=== PATIENT | male | born 1985 | race African-American/Black ===

== ENCOUNTER 2017-05-13 15:18 | Emergency (ER) | payer MEDICARE ==
[~2017-05-13] VITALS: Ht 185.4 cm; Wt 90.0 kg
[~2017-05-13 15:18] MED LIST: LACTATED RINGER'S 1000 ML INJ 1,000 ML IV ONE; MIDAZOLAM HCL 2 MG/2 ML VIAL IV ONE; ONDANSETRON HCL 4 MG/2 ML VIAL IV PUSH ONE; PHENYLEPH/NS 1000 MCG/10 ML SYR IV ONE; PROPOFOL 200 MG/20 ML AMP IV ONE
[2017-05-13 15:29] VITALS: BP 120/73; PULSE 90; RESP 18; TEMP 98.3; O2SAT 97
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
[2017-05-13 16:34] LABS: AUTOMATED NEUTROPHIL # 6.9 TH/MM3 (1.8-7.7); BASOPHIL # 0.1 TH/MM3 (0-0.2); BASOPHIL % 1.3 % (0.0-2.0); EOSINOPHIL # 0.2 TH/MM3 (0-0.4); EOSINOPHIL % 1.7 % (0.0-4.0); HEMATOCRIT 45.5 % (39.0-51.0); HEMO FLAGS DIFF FINAL; LYMPHOCYTE # 2.1 TH/MM3 (1.0-4.8); MEAN CELL VOLUME 90.3 FL (80.0-100.0); MEAN CORPUSCULAR HEMOGLOBIN 30.2 PG (27.0-34.0); MEAN CORPUSCULAR HGB CONC 33.5 % (32.0-36.0); MONO % 7.7 % (0.0-8.0); NEUT % 68.3 % (16.0-70.0); PLATELET COUNT 300 TH/MM3 (150-450); RED BLOOD COUNT 5.03 MIL/MM3 (4.50-5.90); WHITE BLOOD COUNT 10.1 TH/MM3 (4.0-11.0)
[2017-05-13 16:46] LABS: APTT (PATIENT) 28.9 SEC (24.3-30.1); PROTHROMBIN TIME - PATIENT 10.6 SEC (9.8-11.6)
[2017-05-13 17:03] LABS: BICARBONATE 25.2 MEQ/L (21.0-32.0); POTASSIUM 3.6 MEQ/L (3.5-5.1)
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
[2017-05-13] MEDS ORDERED: LIDOCAINE HCL 2% 50 ML VIAL ONE (18:06)
[2017-05-13] MEDS ORDERED: BACITRACIN TOP OINT 15 GM TUBE ONE (18:07)
[2017-05-13] MEDS ORDERED: ceFAZolin INJ 1,000 MG VIAL ONE (18:30)
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
--- NOTE | 2017-05-13 21:12 | PD.OP ---
Operative Report Preoperative Diagnosis: (1) Laceration of right hand with tendon involvement including fingers Postoperative Diagnosis: (1) laceration flexor digitorum produndus zone II right middle fingerr (2) laceration flexor digitorum superficialis zone II right middle finger (3) laceration ulnar digital nerve right middle finger (4) laceration right hand/middle finger Procedure: exploration repair of flexor digitorum profundus zone II right middle finger repair flexor digitorum superificialis right middle finger repair with nerve conduit ulnar digital nerve right middle finger repair laceration right palm/middle finger Anesthesia: general Surgeon: Contreras Boyce [employer] Porter(s): inez Operation and Findings: partial laceration about 90% flexor profundus tendon zone II right middle finger complete laceration radial slip flexor digitorum superficialis zone II right middle finger partial laceration 90% ulnar slip flexor digitorum superficialis zone II right middle finger complete laceration ulnar digital nerve right middle finger Contreras Boyce MD May 13, 2017 21:12
[2017-05-13 21:15] VITALS: BP 110/70
[2017-05-13] MEDS ORDERED: HYDR-3533 PO (21:20)
[2017-05-13] MEDS ORDERED: CEPH500C PO (21:21)
[2017-05-13 21:30] VITALS: PULSE 100; RESP 28; TEMP 98.1; O2SAT 96
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
== END 2017-05-13 21:35 | disposition home or self-care (01) ==
LOC: HOR 15:18
DX: S66.122A Laceration of flexor muscle, fascia and tendon of right middle finger at wrist and hand level, initial encounter (principal); S64.01XA Injury of ulnar nerve at wrist and hand level of right arm, initial encounter; S61.411A Laceration without foreign body of right hand, initial encounter; Z72.0 Tobacco use; X99.1XXA Assault by knife, initial encounter; Y92.009 Unspecified place in unspecified non-institutional (private) residence as the place of occurrence of the external cause
CPT/HCPCS: 12041; 26356; 64910; 73130; 80048; 85025; 85610; 85730; 99285; C9352; J0690; J2250; J2370; J2405; J3010; J7120

== ENCOUNTER 2017-07-06 09:46 | Emergency (ER) | payer MEDICARE ==
[~2017-07-06] VITALS: Ht 172.7 cm; Wt 97.5 kg
[~2017-07-06 09:46] MED LIST changes: +CEPH500C PO; +HYDR-3533 PO; -LACTATED RINGER'S 1000 ML INJ 1,000 ML IV ONE; -MIDAZOLAM HCL 2 MG/2 ML VIAL IV ONE; -ONDANSETRON HCL 4 MG/2 ML VIAL IV PUSH ONE; -PHENYLEPH/NS 1000 MCG/10 ML SYR IV ONE; -PROPOFOL 200 MG/20 ML AMP IV ONE
[2017-07-06 09:58] VITALS: BP 139/70; PULSE 108; RESP 20; TEMP 103.1; O2SAT 97
[2017-07-06] MEDS ORDERED: SODIUM CHLOR 0.9% 1000 ML INJ 700 ML IV ONE (10:00)
[2017-07-06] MEDS ORDERED: ACETAMINOPHEN 325 MG TAB PO ONE (10:00)
[2017-07-06] MEDS ORDERED: SODIUM CHLOR 0.9% 1000 ML INJ 1,000 ML IV ONE ×2 (10:00)
--- NOTE | 2017-07-06 10:14 | PD ---
HPI Chief Complaint: Flank/Kidney Pain Time Seen by Provider: 09:53 Travel History International Travel<30 days: No Contact w/Intl Traveler<30days: No Traveled to known affect area: No History of Present Illness HPI The patient is a 31-year-old [place] male who presents to the emergency department for left flank pain. The patient has a 3 to four-day history of left mid back pain is located in the left flank, nonradiating, associated with nausea, vomiting, decreased appetite. He denies any associated diarrhea, does note decrease in bowel movements since he has decreased oral intake. He is also had fevers, high as 103 per EMS. The patient does complain of mild shortness of breath and a productive cough producing brown sputum. He denies any dysuria, frequency, or urgency. He does complain of dark-colored urine. Symptoms are moderate, there are no current alleviating or exacerbating factors. He denies any history of IVDA. PFSH Social History Alcohol Use: Yes Tobacco Use: Yes Substance Use: Yes Allergies-Medications (Allergen,Severity, Reaction): Coded Allergies: No Known Allergies (Unverified , 05/13/17) Reported Meds & Prescriptions Reported Meds & Active Scripts Active Reported Cephalexin 500 Mg Cap 500 Mg PO Q12H 5 Days Lortab (Hydrocodone-Acetaminophen) 5-325 Mg Tab 1 Tab PO Q6H PRN Review of Systems Except as stated in HPI: all other systems reviewed are Neg General / Constitutional: No: Fever HENT: No: Lightheadedness Cardiovascular: No: Chest Pain or Discomfort Respiratory: Positive: Cough, Shortness of Breath Gastrointestinal: Positive: Nausea, Vomiting Genitourinary: No: Urgency, Frequency, Dysuria Musculoskeletal: No: Myalgias Neurologic: No: Weakness Physical Exam Narrative GENERAL: Awake, alert, 31-year-old [place] male who appears his stated age and is in no acute respiratory distress. SKIN: Focused skin assessment warm/dry. HEAD: Atraumatic. Normocephalic. EYES: Pupils equal and round. No scleral icterus. No injection or drainage. ENT: No nasal bleeding or discharge. Mucous membranes pink and moist. NECK: Trachea midline. No JVD. CARDIOVASCULAR: Regular rate and rhythm. No murmur appreciated. RESPIRATORY: No accessory muscle use. Rhonchi noted in the left base. GASTROINTESTINAL: Abdomen soft, no guarding or rigidity. Back: No CVA tenderness. MUSCULOSKELETAL: No obvious deformities. No clubbing. No cyanosis. No edema. NEUROLOGICAL: Awake and alert. No obvious cranial nerve deficits. Motor grossly within normal limits. Normal speech. PSYCHIATRIC: Appropriate mood and affect; insight and judgment normal. Data Data Last Documented VS Vital Signs Date Time Temp Pulse Resp B/P (MAP) Pulse Ox O2 Delivery O2 Flow Rate FiO2 07/06/17 10:10 96 Nasal Cannula 2.00 07/06/17 09:58 103.1 108 20 139/70 (93) Orders Orders Electrocardiogram (07/06/17 10:00) Complete Blood Count With Diff (07/06/17 10:00) Comprehensive Metabolic Panel (07/06/17 10:00) Lactic Acid Sepsis Protocol (07/06/17 10:00) Ckmb (Isoenzyme) Profile (07/06/17 10:00) Troponin I (07/06/17 10:00) Urinalysis - C+S If Indicated (07/06/17 10:00) Influenzae A/B Antigen (07/06/17 10:00) Blood Culture (07/06/17 10:00) Chest, Single Ap (07/06/17 10:00) Blood Glucose (07/06/17 10:00) Ecg Monitoring (07/06/17 10:00) Iv Access Insert/Monitor (07/06/17 10:00) Oximetry (07/06/17 10:00) Oxygen Administration (07/06/17 10:00) Acetaminophen (Tylenol) (07/06/17 10:00) Sodium Chlor 0.9% 1000 Ml Inj (Ns 1000 M (07/06/17 10:00) Sodium Chlor 0.9% 1000 Ml Inj (Ns 1000 M (07/06/17 10:00) Sodium Chlor 0.9% 1000 Ml Inj (Ns 1000 M (07/06/17 10:00) Ceftriaxone Inj (Rocephin Inj) (07/06/17 11:00) Azithromycin Inj (Zithromax Inj) (07/06/17 11:00) CKMB (07/06/17 10:20) CKMB% (07/06/17 10:20) Labs Laboratory Tests Test 07/06/17 10:20 07/06/17 11:23 White Blood Count 25.8 TH/MM3 Red Blood Count 4.36 MIL/MM3 Hemoglobin 13.3 GM/DL Hematocrit 39.6 % Mean Corpuscular Volume 90.9 FL Mean Corpuscular Hemoglobin 30.5 PG Mean Corpuscular Hemoglobin Concent 33.6 % Red Cell Distribution Width 12.8 % Platelet Count 232 TH/MM3 Mean Platelet Volume 9.0 FL Neutrophils (%) (Auto) 80.5 % Lymphocytes (%) (Auto) 5.0 % Monocytes (%) (Auto) 14.3 % Eosinophils (%) (Auto) 0.0 % Basophils (%) (Auto) 0.2 % Neutrophils # (Auto) 20.7 TH/MM3 Lymphocytes # (Auto) 1.3 TH/MM3 Monocytes # (Auto) 3.7 TH/MM3 Eosinophils # (Auto) 0.0 TH/MM3 Basophils # (Auto) 0.1 TH/MM3 CBC Comment AUTO DIFF Differential Total Cells Counted 100 Neutrophils % (Manual) 64 % Band Neutrophils % 17 % Lymphocytes % 8 % Monocytes % 11 % Neutrophils # (Manual) 20.9 TH/MM3 Differential Comment FINAL DIFF MANUAL Platelet Estimate NORMAL Platelet Morphology Comment NORMAL Blood Urea Nitrogen 10 MG/DL Creatinine 1.03 MG/DL Random Glucose 125 MG/DL Total Protein 7.8 GM/DL Albumin 3.1 GM/DL Calcium Level 8.6 MG/DL Alkaline Phosphatase 79 U/L Aspartate Amino Transf (AST/SGOT) 16 U/L Alanine Aminotransferase (ALT/SGPT) 28 U/L Total Bilirubin 1.6 MG/DL Sodium Level 135 MEQ/L Potassium Level 3.5 MEQ/L Chloride Level 102 MEQ/L Carbon Dioxide Level 24.5 MEQ/L Anion Gap 9 MEQ/L Estimat Glomerular Filtration Rate 102 ML/MIN Lactic Acid Level 0.8 mmol/L Total Creatine Kinase 153 U/L Creatine Kinase MB LESS THAN 0.5 NG/ML Troponin I LESS THAN 0.02 NG/ML MDM Medical Decision Making Medical Screen Exam Complete: Yes Emergency Medical Condition: Yes Medical Record Reviewed: Yes Interpretation(s) EKG reveals sinus tachycardia with a heart rate of 109. No ischemic changes noted. Last Impressions Chest X-Ray 07/06/17 1000 Signed Impressions: Service Date/Time: June 10:03 - CONCLUSION: Mild airspace opacity in the left lower lobe could represent airspace consolidation and a pneumonia. No pleural effusion is visualized. Danny Haile MD Laboratory Tests Test 07/06/17 10:20 07/06/17 11:23 White Blood Count 25.8 TH/MM3 Red Blood Count 4.36 MIL/MM3 Hemoglobin 13.3 GM/DL Hematocrit 39.6 % Mean Corpuscular Volume 90.9 FL Mean Corpuscular Hemoglobin 30.5 PG Mean Corpuscular Hemoglobin Concent 33.6 % Red Cell Distribution Width 12.8 % Platelet Count 232 TH/MM3 Mean Platelet Volume 9.0 FL Neutrophils (%) (Auto) 80.5 % Lymphocytes (%) (Auto) 5.0 % Monocytes (%) (Auto) 14.3 % Eosinophils (%) (Auto) 0.0 % Basophils (%) (Auto) 0.2 % Neutrophils # (Auto) 20.7 TH/MM3 Lymphocytes # (Auto) 1.3 TH/MM3 Monocytes # (Auto) 3.7 TH/MM3 Eosinophils # (Auto) 0.0 TH/MM3 Basophils # (Auto) 0.1 TH/MM3 CBC Comment AUTO DIFF Differential Total Cells Counted 100 Neutrophils % (Manual) 64 % Band Neutrophils % 17 % Lymphocytes % 8 % Monocytes % 11 % Neutrophils # (Manual) 20.9 TH/MM3 Differential Comment FINAL DIFF MANUAL Platelet Estimate NORMAL Platelet Morphology Comment NORMAL Blood Urea Nitrogen 10 MG/DL Creatinine 1.03 MG/DL Random Glucose 125 MG/DL Total Protein 7.8 GM/DL Albumin 3.1 GM/DL Calcium Level 8.6 MG/DL Alkaline Phosphatase 79 U/L Aspartate Amino Transf (AST/SGOT) 16 U/L Alanine Aminotransferase (ALT/SGPT) 28 U/L Total Bilirubin 1.6 MG/DL Sodium Level 135 MEQ/L Potassium Level 3.5 MEQ/L Chloride Level 102 MEQ/L Carbon Dioxide Level 24.5 MEQ/L Anion Gap 9 MEQ/L Estimat Glomerular Filtration Rate 102 ML/MIN Lactic Acid Level 0.8 mmol/L Total Creatine Kinase 153 U/L Creatine Kinase MB LESS THAN 0.5 NG/ML Troponin I LESS THAN 0.02 NG/ML Differential Diagnosis Differential diagnosis includes pneumonia, pyelonephritis, influenza, viral syndrome, dehydration, pulmonary embolism. Narrative Course IV was established, labs are drawn and sent, the patient was placed on cardiac telemetry monitoring and continuous pulse oximetry monitoring. EKG was ordered and interpreted. Chest x-rays was obtained. UA was sent to lab. The patient was administered IV fluids and Tylenol 650 mg orally. Chest x-ray was positive for left lower lobe pneumonia. White count is elevated 25.8, with patient's heart rate above 100 and temperature of 103, consistent with sepsis from pneumonia. The patient was administered Rocephin 1 g intravenously and Zithromax 500 mg intravenously. The patient has community-acquired pneumonia and sepsis criteria. I had a discussion with the patient regarding admission and recommended that the patient be admitted for IV antibiotics. However, the patient states he is currently in school and wishes to be discharged. I advised the patient with sepsis criteria that IV anabiotic or indicated, however , he states repetitively he will not be admitted and wants to go home because he is currently in school. Therefore, the patient will be prescribed Levaquin and an albuterol inhaler. He is advised return if symptoms worsen or progress. Sepsis Criteria SIRS Criteria (2 or more): Temp > 100.9 or < 96.8, Heart rate over 90, WBC > 85677, < 4000 or > 10% bands Sepsis Criteria (SIRS+source): Infect source susp/known Criteria Outcome: Meets sepsis criteria Diagnosis Primary Impression: Pneumonia Qualified Codes: J18.1 - Lobar pneumonia, unspecified organism Patient Instructions: General Instructions Additional Instructions: Medications as directed. Return if symptoms worsen or progress. Alternate Tylenol and Motrin for pain and fever. Once again I advised that admission is needed, however, medications as directed and return if symptoms are worse. Med/Other Pt SpecificInfo: Prescription(s) given Scripts Albuterol Sulfate (Proair Hfa) 90 Mcg Hfa.aer.ad 2 SPRAY INH Q6HR for Shortness of Breath, #1 Prov: Dutch Abad MD 07/06/17 Levofloxacin (Levaquin) 500 Mg Tablet 500 MG PO DAILY for Infection for 7 Days, #7 TAB 0 Refills Prov: Dutch Abad MD 07/06/17 Disposition: 01 DISCHARGE HOME Condition: Stable Dutch Abad MD Jul 06, 2017 10:14
--- NOTE | 2017-07-06 10:27 | RADRPT ---
EXAM DATE/TIME: 07/06/2017 10:03 [facility] COMPARISON: No previous studies available for comparison. INDICATIONS : Fever, evaluate left lower lung for pneumonia MEDICAL HISTORY : None. SURGICAL HISTORY : None. ENCOUNTER: Initial ACUITY: 4 - 6 days PAIN SCORE: 0/10 LOCATION: Bilateral chest FINDINGS: Underinflated AP view of the chest demonstrates a normal-sized cardiac silhouette. There is mild airs pace opacity in the left lower lung zone. No pleural effusion or pneumothorax is identified. Bones an d soft tissues demonstrate no acute finding. CONCLUSION: Mild airspace opacity in the left lower lobe could represent airspace consolidation and a pneumonia. No pleural effusion is visualized. Danny Haile MD on July 06, 2017 at 10:25 Board Certified Radiologist. This report was verified electronically.
[2017-07-06] MEDS ORDERED: cefTRIAXone INJ 1,000 MG in SODIUM CHLORIDE 0.9% INJ 100 ML IV ONE (11:00)
[2017-07-06] MEDS ORDERED: AZITHROMYCIN INJ 500 MG in SODIUM CHLOR 0.9% 250 ML INJ 250 ML IV ONE (11:00)
[2017-07-06 11:02] LABS: AUTOMATED NEUTROPHIL # 20.7 TH/MM3 (1.8-7.7); BASOPHIL # 0.1 TH/MM3 (0-0.2); BASOPHIL % 0.2 % (0.0-2.0); HEMATOCRIT 39.6 % (39.0-51.0); LYMPHOCYTE # 1.3 TH/MM3 (1.0-4.8); MEAN CELL VOLUME 90.9 FL (80.0-100.0); MEAN CORPUSCULAR HEMOGLOBIN 30.5 PG (27.0-34.0); MEAN CORPUSCULAR HGB CONC 33.6 % (32.0-36.0); MONO % 14.3 % (0.0-8.0); NEUT % 80.5 % (16.0-70.0); PLATELET COUNT 232 TH/MM3 (150-450); RED BLOOD COUNT 4.36 MIL/MM3 (4.50-5.90); RED CELL DISTRIBUTION WIDTH 12.8 % (11.6-17.2); WHITE BLOOD COUNT 25.8 TH/MM3 (4.0-11.0)
[2017-07-06 11:05] LABS: HEMO FLAGS AUTO DIFF
[2017-07-06 11:28] LABS: ALT (GPT) 28 U/L (12-78); ANION GAP 9 MEQ/L (5-15); AST (GOT) 16 U/L (15-37); BICARBONATE 24.5 MEQ/L (21.0-32.0); BLOOD UREA NITROGEN 10 MG/DL (7-18); CHLORIDE 102 MEQ/L (98-107); GLOMERULAR FILTRATION RATE 102 ML/MIN (>89); POTASSIUM 3.5 MEQ/L (3.5-5.1); SODIUM (NA) 135 MEQ/L (136-145)
[2017-07-06 11:33] LABS: ALKALINE PHOSPHATASE 79 U/L (45-117); CREATINE KINASE 153 U/L (39-308); TOTAL BILIRUBIN ADULT 1.6 MG/DL (0.2-1.0)
[2017-07-06 11:43] LABS: BANDS 17 % (0-6); NEUTROPHIL # MANUAL DIFF 20.9 TH/MM3 (1.8-7.7); POLYS (SEG NEUTROPHILS) 64 % (16-70); WBC DIFF SAMPLE 100
[2017-07-06 11:44] LABS: PLATELET ESTIMATE SMEAR NORMAL (NORMAL); PLATELET MORPHOLOGY NORMAL (NORMAL); SCAN/DIFF FINAL DIFF MANUAL
[2017-07-06 11:45] LABS: CKMB LESS THAN 0.5 NG/ML (0.5-3.6)
[2017-07-06] MEDS ORDERED: ALBUAER3 INH (11:54)
[2017-07-06] MEDS ORDERED: LEVA500T33 PO (11:54)
[2017-07-06 12:11] LABS: BLOOD, URINE MOD (NEG); GLUCOSE,URINE NEG (NEG); HYALINE CAST, URINE 1 /lpf (RARE); KETONE, URINE 10 mg/dL (NEG); MUCUS URINE MANY /lpf (OCC); NITRITE,URINE NEG (NEG); PH, URINE 6.5 (5.0-8.5); SQUAMOUS EPITHELIAL CELL URINE <1 /hpf (0-5)
[2017-07-06 12:14] LABS: URINE COLOR AMBER (YELLW/STRAW)
[2017-07-06 12:15] LABS: COMMENT (UR) CATH-CULT NOT IND; CULTURE IF INDICATED CATH CULTURE NOT IND
[2017-07-06 12:26] VITALS: BP 133/60; PULSE 104; RESP 24; O2SAT 98
--- NOTE | 2017-07-06 13:44 | EKG ---
Date Performed: 07/06/2017 Time Performed: 10:32:30 PTAGE: 31 years EKG: SINUS TACHYCARDIA POSSIBLE LEFT ATRIAL ENLARGEMENT Cannot rule out inferior OK versus lois l variant ABNORMAL RHYTHM ECG NO PREVIOUS TRACING DOCTOR: Alec Fernandes Interpretating Date/Time 07/06/2017 13:42:40
== END 2017-07-06 19:25 | disposition home or self-care (01) ==
LOC: NEPC 09:46
DX: J18.1 Lobar pneumonia, unspecified organism (principal); R94.31 Abnormal electrocardiogram [ECG] [EKG]; R11.2 Nausea with vomiting, unspecified; Z72.0 Tobacco use
CPT/HCPCS: 71010; 80053; 81001; 82550; 82552; 83605; 84484; 85007; 85027; 87040; 87804; 93005; 96374; 96375; 99284; J0456; J0696; J7030; J7050

== ENCOUNTER 2017-07-06 22:22 | Inpatient (IN) | payer MEDICARE ==
[~2017-07-06] VITALS: Ht 172.7 cm; Wt 98.0 kg
[~2017-07-06 22:22] MED LIST changes: +ALBUAER3 INH; +LEVA500T33 PO
[2017-07-06 22:28] VITALS: BP 132/65; PULSE 115; RESP 34; TEMP 102.6; O2SAT 100
[2017-07-06] MEDS ORDERED: SODIUM CHLOR 0.9% 1000 ML INJ 1,000 ML IV ONE (23:00)
[2017-07-06] MEDS ORDERED: KETOROLAC TROMETHAMINE 30 MG/ML (IVP) VIAL IV PUSH ONE (23:00)
--- NOTE | 2017-07-06 23:59 | RADRPT ---
EXAM DATE/TIME: 07/06/2017 23:41 [facility] COMPARISON: No previous studies available for comparison. INDICATIONS : Fever along with short of breath RADIATION DOSE: 17.76 CTDIvol (mGy) ; Combined studies - Thorax/Abdomen/Pelvis MEDICAL HISTORY : None SURGICAL HISTORY : None. ENCOUNTER: Initial ACUITY: 1 day PAIN SCALE: 5/10 LOCATION: chest TECHNIQUE: Volumetric scanning of the chest was performed. Using automated exposure control and adjustment of t he mA and/or kV according to patient size, radiation dose was kept as low as reasonably achievable to obtain optimal diagnostic quality images. DICOM format image data is available electronically for r eview and comparison. Follow-up recommendations for detected pulmonary nodules are based at a minimum on nodule size and pa tient risk factors according to Fleischner Society Guidelines. FINDINGS: There is left lower lobe pneumonia with multiple small locules of gas characteristic of abscess measu ring 5.7 cm.. There is alveolar disease in the remainder of the left lower lobe. Small bilateral pleu ral effusions are identified. Examination of the mediastinum demonstrates no abnormally enlarged lymph nodes by CT criteria. No axi llary or hilar abnormalities are identified. Coronary artery calcifications are not present. The visu alized upper abdomen demonstrates no abnormality. CONCLUSION: 1. 5.7 cm abscess in the left lower lobe. Centrally obstructing lesion and malignancy are not exclude d. Nathaniel Abdul MD on July 06, 2017 at 23:55 Board Certified Radiologist. This report was verified electronically.
[2017-07-07] VITALS (11 sets, daily range): BP systolic 128–140; BP diastolic 65–82; PULSE 95–113; RESP 17–22; TEMP 98.5–101.2; O2SAT 94–100
--- NOTE | 2017-07-07 00:04 | RADRPT ---
EXAM DATE/TIME: 07/06/2017 23:41 [facility] COMPARISON: No previous studies available for comparison. INDICATIONS : Fever along with left flank pain. ORAL CONTRAST: No oral contrast ingested. RADIATION DOSE: 17.76 CTDIvol (mGy) ; Combined studies - Thorax/Abdomen/Pelvis MEDICAL HISTORY : None SURGICAL HISTORY : None. ENCOUNTER: Initial ACUITY: 1 day PAIN SCALE: 5/10 LOCATION: Left flank TECHNIQUE: Volumetric scanning of the abdomen and pelvis was performed. Using automated exposure control and ad justment of the mA and/or kV according to patient size, radiation dose was kept as low as reasonably achievable to obtain optimal diagnostic quality images. DICOM format image data is available electro nically for review and comparison. FINDINGS: 5.7 cm left lower lobe abscess is again identified. The liver and spleen are normal in size and no fo raquel defects are identified. The gallbladder and pancreas are unremarkable. No intrahepatic or extrahe patic ductal dilatation is seen. The adrenal glands are unremarkable. The left kidney is unremarkable . The right kidney is in a pelvic location. Examination of the pelvis demonstrates no evidence of free fluid or pelvic mass. No abnormally enlarg ed inguinal or retroperitoneal lymph nodes are present. The bladder is unremarkable. CONCLUSION: 1. No evidence of acute abdominal or pelvic process. No masses are identified. 2. Pelvic right kidney Nathaniel Abdul MD on July 06, 2017 at 23:58 Board Certified Radiologist. This report was verified electronically.
[2017-07-07] MEDS ORDERED: PIPERACIL-TAZO 3.375 GM PREMIX 50 ML IV ONE (00:15)
[2017-07-07] MEDS ORDERED: VANCOMYCIN INJ 1,000 MG in SODIUM CHLOR 0.9% 250 ML INJ 250 ML IV ONE (00:15)
[2017-07-07 00:35] LABS: AUTOMATED NEUTROPHIL # 17.4 TH/MM3 (1.8-7.7); BASOPHIL # 0.1 TH/MM3 (0-0.2); BASOPHIL % 0.7 % (0.0-2.0); HEMATOCRIT 40.7 % (39.0-51.0); LYMPH % 6.9 % (9.0-44.0); LYMPHOCYTE # 1.5 TH/MM3 (1.0-4.8); MEAN CELL VOLUME 90.8 FL (80.0-100.0); MEAN CORPUSCULAR HEMOGLOBIN 30.8 PG (27.0-34.0); MONO % 14.2 % (0.0-8.0); NEUT % 78.2 % (16.0-70.0); PLATELET COUNT 210 TH/MM3 (150-450); RED BLOOD COUNT 4.48 MIL/MM3 (4.50-5.90); WHITE BLOOD COUNT 22.2 TH/MM3 (4.0-11.0)
[2017-07-07 00:36] LABS: HEMO FLAGS AUTO DIFF
--- NOTE | 2017-07-07 00:47 | PD ---
HPI Chief Complaint: Respiratory Distress Time Seen by Provider: 22:46 Travel History International Travel<30 days: No Contact w/Intl Traveler<30days: No Traveled to known affect area: No History of Present Illness HPI Patient is a 31-year-old male who was here earlier today having coughing shortness of breath fevers was seen by the ER doctor given ceftriaxone and azithromycin for community-acquired pneumonia seen on the x-ray patient refused to stay saying he is in school and he wanted to leave patient was given Levaquin prescription as well as an albuterol inhaler prescription patient comes back tonight short of breath coughing fever of 103 brought in by paramedics he reported that he was coughing up blood he is stable vitals when he arrives mildly tachycardia at 113 receiving a DuoNeb en route I order a CT abdomen chest and labs will admit for pneumonia [facility] Past Medical History Asthma: Yes (CHILDHOOD) Diminished Hearing: No Influenza Vaccination: Yes Past Surgical History Other Surgery: Yes (HERNIA OPERATION A CHILD) Social History Alcohol Use: No Tobacco Use: Yes (5 PACKS BLACK AND MILDS A DAY) Substance Use: Yes (MARIJUANA ) Allergies-Medications (Allergen,Severity, Reaction): Coded Allergies: No Known Allergies (Unverified Allergy, Unknown, 07/07/17) Reported Meds & Prescriptions Reported Meds & Active Scripts Active Proair Hfa (Albuterol Sulfate) 90 Mcg Hfa.aer.ad 2 [place] INH Q6HR Review of Systems Except as stated in HPI: all other systems reviewed are Neg General / Constitutional: Positive: Fever, Chills Respiratory: Positive: Cough, Shortness of Breath, Wheezing Physical Exam Narrative GENERAL: Patient seems mild respiratory distress but able to talk through the nebulizer mask has a fever at triage SKIN: Warm and dry. HEAD: Atraumatic. Normocephalic. EYES: Pupils equal and round. No scleral icterus. No injection or drainage. ENT: No nasal bleeding or discharge. Mucous membranes pink and moist. NECK: Trachea midline. No JVD. CARDIOVASCULAR: Regular rate and rhythm. RESPIRATORY: Mild respiratory distress. Crackles auscultated at the left lung. GASTROINTESTINAL: Abdomen soft, non-tender, nondistended. Hepatic and splenic margins not palpable. MUSCULOSKELETAL: Extremities without clubbing, cyanosis, or edema. No obvious deformities. NEUROLOGICAL: Awake and alert. No obvious cranial nerve deficits. Motor grossly within normal limits. Five out of 5 muscle strength in the arms and legs. Normal speech. PSYCHIATRIC: Appropriate mood and affect; insight and judgment normal. Data Data Last Documented VS Vital Signs Date Time Temp Pulse Resp B/P (MAP) Pulse Ox O2 Delivery O2 Flow Rate FiO2 07/07/17 00:41 98.5 95 22 135/65 (88) 99 Nasal Cannula 2.00 Orders Orders Sodium Chlor 0.9% 1000 Ml Inj (Ns 1000 M (07/06/17 23:00) Ketorolac Inj (Toradol Inj) (07/06/17 23:00) Ct Abd/Pel W/O Iv Contrast (07/06/17 ) Ct Thorax/ Chest Wo Iv Contras (07/06/17 ) Complete Blood Count With Diff (07/07/17 00:11) Comprehensive Metabolic Panel (07/07/17 00:11) Blood Culture (07/07/17 00:11) Vancomycin Inj (Vancomycin Inj) (07/07/17 00:15) Piperacil-Tazo 3.375 Gm Premix (Zosyn 3. (07/07/17 00:15) Admit Order (Ed Use Only) (07/07/17 00:55) Labs Laboratory Tests Test 07/07/17 00:00 White Blood Count 22.2 TH/MM3 Red Blood Count 4.48 MIL/MM3 Hemoglobin 13.8 GM/DL Hematocrit 40.7 % Mean Corpuscular Volume 90.8 FL Mean Corpuscular Hemoglobin 30.8 PG Mean Corpuscular Hemoglobin Concent 34.0 % Red Cell Distribution Width 13.0 % Platelet Count 210 TH/MM3 Mean Platelet Volume 9.4 FL Neutrophils (%) (Auto) 78.2 % Lymphocytes (%) (Auto) 6.9 % Monocytes (%) (Auto) 14.2 % Eosinophils (%) (Auto) 0.0 % Basophils (%) (Auto) 0.7 % Neutrophils # (Auto) 17.4 TH/MM3 Lymphocytes # (Auto) 1.5 TH/MM3 Monocytes # (Auto) 3.2 TH/MM3 Eosinophils # (Auto) 0.0 TH/MM3 Basophils # (Auto) 0.1 TH/MM3 CBC Comment AUTO DIFF Differential Comment AUTO DIFF CONFIRMED Toxic Vacuolation PRESENT Dohle Bodies PRESENT Platelet Estimate NORMAL Platelet Morphology Comment NORMAL Red Cell Morphology Comment NORMAL Blood Urea Nitrogen 9 MG/DL Creatinine 1.04 MG/DL Random Glucose 117 MG/DL Total Protein 7.1 GM/DL Albumin 2.9 GM/DL Calcium Level 8.1 MG/DL Alkaline Phosphatase 69 U/L Aspartate Amino Transf (AST/SGOT) 23 U/L Alanine Aminotransferase (ALT/SGPT) 31 U/L Total Bilirubin 1.3 MG/DL Sodium Level 136 MEQ/L Potassium Level 3.7 MEQ/L Chloride Level 102 MEQ/L Carbon Dioxide Level 26.0 MEQ/L Anion Gap 8 MEQ/L Estimat Glomerular Filtration Rate 101 ML/MIN MDM Medical Decision Making Medical Screen Exam Complete: Yes Emergency Medical Condition: Yes Medical Record Reviewed: Yes Differential Diagnosis Lung abscess versus pneumonia versus sepsis versus reactive airway Narrative Course Patient has a white count of [address] chest that shows this large lower lobe abscess he is given duo nebs Vanco and Zosyn he is admitted to the hospitalist for close monitoring of his lung function he is satting on 2 L at 96 % this time there is no indication for intubation or ICU admission because followed on the medical floor by Dr. Ramirez Diagnosis Primary Impression: Lung abscess Additional Impression: PNA (pneumonia) Admitting Information Admitting Physician Requests: Admit Condition: Stable Conrado Bundy MD Jul 07, 2017 00:47
[2017-07-07 00:56] LABS: ALT (GPT) 31 U/L (12-78); ANION GAP 8 MEQ/L (5-15); AST (GOT) 23 U/L (15-37); BLOOD UREA NITROGEN 9 MG/DL (7-18); CHLORIDE 102 MEQ/L (98-107); GLOMERULAR FILTRATION RATE 101 ML/MIN (>89); POTASSIUM 3.7 MEQ/L (3.5-5.1); SODIUM (NA) 136 MEQ/L (136-145)
[2017-07-07 00:57] LABS: ALKALINE PHOSPHATASE 69 U/L (45-117); TOTAL BILIRUBIN ADULT 1.3 MG/DL (0.2-1.0)
[2017-07-07] MEDS ORDERED: Vancomycin Consult Pharmacy 1 EA OTHER SCH (01:00)
[2017-07-07] MEDS ORDERED: BISACODYL 10 MG SUPP RECTAL PRN (01:00)
[2017-07-07] MEDS ORDERED: MAGNESIUM HYDROXIDE SUSP 30 ML CUP PO PRN (01:00)
[2017-07-07] MEDS ORDERED: SODIUM CHLORIDE 0.9% FLUSH 10 ML FLUSH IV FLUSH PRN (01:00)
[2017-07-07] MEDS ORDERED: SENNOSIDES 8.6 MG TAB PO PRN (01:00)
[2017-07-07] MEDS ORDERED: ONDANSETRON HCL 4 MG/2 ML VIAL IVP PRN (01:00)
[2017-07-07] MEDS ORDERED: LACTULOSE SYRUP 20 GM/30 ML CUP PO PRN (01:00)
[2017-07-07 01:07] LABS: DOHLE BODIES PRESENT (NONE SEEN); PLATELET ESTIMATE SMEAR NORMAL (NORMAL); PLATELET MORPHOLOGY NORMAL (NORMAL); SCAN/DIFF AUTO DIFF CONFIRMED; TOXIC VACUOLATION PRESENT (NONE SEEN)
[2017-07-07] MEDS ORDERED: VANCOMYCIN 1,000 MG/NS 250 ML IV SCH ×2 (03:00)
--- NOTE | 2017-07-07 04:15 | HHI.HP ---
HPI Service [facility] Primary Care Physician No Primary Care Physician Admission Diagnosis lung abscess Diagnoses: (1) Sepsis Diagnosis: Principal (2) PNA (pneumonia) Diagnosis: Principal (3) Lung abscess Diagnosis: Principal (4) Tobacco abuse Diagnosis: Principal Travel History International Travel<30 Days: No Contact w/Intl Traveler <30 Da: No Traveled to Known Affected Are: No History of Present Illness This is a 31-year-old male with no significant PMH who presented to the ER with complaints of SOB, cough and fever x3 days. Was seen in ER earlier on 07/06/17 for similar complaints in addition to flank pain, CXR w/ PNA, s/p Rocephin/ Zithro in ER, CT Abd/Pelvis w/ no acute findings, offered admission as pt w/ criteria for Sepsis, however LEFT AMA. Given Rx for Levaquin 500mg qd x7 days and Albuterol. Brought to the ER by EMS for worsening complaints, Temp 103. On arrival, BP 132/65, HR 1:15, O2 sat 100% on RA, Temp 102.6. WBC 22.2. Chemistry essentially unremarkable. UA negative. CT Chest 5.7 cm abscess left lower lobe, central obstructing lesion and malignancy not excluded. Patient does have a history of Tobacco Abuse. CT Abd/Pelvis w/ no acute findings. S/p Blood Cultures, Vanc/Zosyn in ER. Review of Systems Except as stated in HPI: all other systems reviewed are Neg ROS: 14 point review of systems otherwise negative. Past Family Social History Past Medical History PMH: None Past Surgical History PAST SURGICAL HISTORY: Hernia Repair Allergies: Coded Allergies: No Known Allergies (Unverified Allergy, Unknown, 07/07/17) Family History PAST FAMILY HISTORY: Reviewed. No h/o DM or CAD Social History PAST SOCIAL HISTORY: Negative for alcohol. Smokes 5 packs Black and Mild per day. +Marijuana. Physical Exam Vital Signs Vital Signs Date Time Temp Pulse Resp B/P (MAP) Pulse Ox O2 Delivery O2 Flow Rate FiO2 07/07/17 01:30 98.9 96 20 137/67 (90) 97 07/07/17 01:24 98.5 97 22 135/65 (88) 99 Nasal Cannula 2.00 07/07/17 00:41 98.5 95 22 135/65 (88) 99 Nasal Cannula 2.00 07/06/17 22:34 30 98 Nasal Cannula 2.00 07/06/17 22:28 102.6 115 34 132/65 (87) 100 Physical Exam PE: GENERAL: Middle-aged male in no acute distress. HEENT: PERRLA, EOMI. No scleral icterus or conjunctival pallor. No lid lag or facial droop. CARDIOVASCULAR: Regular rate and rhythm. No obvious murmurs to auscultation. No chest tenderness to palpation. RESPIRATORY: No obvious rhonchi or wheezing. Clear to auscultation. Breath sounds equal bilaterally, mildly decreased at bases. GASTROINTESTINAL: Abdomen soft, non-tender, nondistended. BS normal. MUSCULOSKELETAL: Extremities without clubbing, cyanosis, or edema. No obvious deformities. NEUROLOGICAL: Awake, alert and oriented x4. No focal neurologic deficits. Moving both upper and lower extremities spontaneously. Laboratory Laboratory Tests Test 07/07/17 00:00 White Blood Count 22.2 Red Blood Count 4.48 Hemoglobin 13.8 Hematocrit 40.7 Mean Corpuscular Volume 90.8 Mean Corpuscular Hemoglobin 30.8 Mean Corpuscular Hemoglobin Concent 34.0 Red Cell Distribution Width 13.0 Platelet Count 210 Mean Platelet Volume 9.4 Neutrophils (%) (Auto) 78.2 Lymphocytes (%) (Auto) 6.9 Monocytes (%) (Auto) 14.2 Eosinophils (%) (Auto) 0.0 Basophils (%) (Auto) 0.7 Neutrophils # (Auto) 17.4 Lymphocytes # (Auto) 1.5 Monocytes # (Auto) 3.2 Eosinophils # (Auto) 0.0 Basophils # (Auto) 0.1 CBC Comment AUTO DIFF Differential Comment AUTO DIFF CONFIRMED Toxic Vacuolation PRESENT Dohle Bodies PRESENT Platelet Estimate NORMAL Platelet Morphology Comment NORMAL Red Cell Morphology Comment NORMAL Blood Urea Nitrogen 9 Creatinine 1.04 Random Glucose 117 Total Protein 7.1 Albumin 2.9 Calcium Level 8.1 Alkaline Phosphatase 69 Aspartate Amino Transf (AST/SGOT) 23 Alanine Aminotransferase (ALT/SGPT) 31 Total Bilirubin 1.3 Sodium Level 136 Potassium Level 3.7 Chloride Level 102 Carbon Dioxide Level 26.0 Anion Gap 8 Estimat Glomerular Filtration Rate 101 Date/Time Source Procedure Growth Status 07/07/17 00:10 Blood Peripheral Aerobic Blood Culture Pending Received 07/07/17 00:10 Blood Peripheral Anaerobic Blood Culture Pending Received Result Diagram: 07/07/17 0000 07/07/17 0000 Swapna VTE Risk Assessment Swapna VTE Risk Assessment: No/Low Risk (score <= 1) Caprini Risk Assessment Model Point Value = 1 Point Value = 2 Point Value = 3 Point Value = 5 Age 41-60 Minor surgery BMI > 25 kg/m2 Swollen legs Varicose veins or History of unexplained or recurrent spontaneous Oral contraceptives or hormone replacement Sepsis (< 1 month) Serious lung disease, including pneumonia (< 1 month) Abnormal pulmonary function Acute myocardial infarction Congestive heart failure (< 1 month) History of inflammatory bowel disease Medical patient at bed rest Age 61-74 Arthroscopic surgery Major open surgery (> 45 min) Laparoscopic surgery (> 45 min) Malignancy Confined to bed (> 72 hours) Immobilizing plaster cast Central venous access Age >= 75 History of VTE Family history of VTE Factor V Leiden Prothrombin [id number] Lupus anticoagulant Anticardiolipin antibodies Elevated serum homocysteine Heparin-induced thrombocytopenia Other congenital or acquired thrombophilia Stroke (< 1 month) Elective arthroplasty Hip, pelvis, or leg fracture Acute spinal cord injury (< 1 month) Prophylaxis Regimen Total Risk Factor Score Risk Level Prophylaxis Regimen 0-1 Low Early ambulation 2 Moderate Order ONE of the following: *Sequential Compression Device (SCD) *Heparin 5000 units SQ BID 3-4 Higher Order ONE of the following medications: *Heparin 5000 units SQ TID *Enoxaparin/Lovenox 40 mg SQ daily (WT < 150 kg, CrCl > 30 mL/min) *Enoxaparin/Lovenox 30 mg SQ daily (WT < 150 kg, CrCl > 10-29 mL/min) *Enoxaparin/Lovenox 30 mg SQ BID (WT < 150 kg, CrCl > 30 mL/min) AND/OR *Sequential Compression Device (SCD) 5 or more Highest Order ONE of the following medications: *Heparin 5000 units SQ TID (Preferred with Epidurals) *Enoxaparin/Lovenox 40 mg SQ daily (WT < 150 kg, CrCl > 30 mL/min) *Enoxaparin/Lovenox 30 mg SQ daily (WT < 150 kg, CrCl > 10-29 mL/min) *Enoxaparin/Lovenox 30 mg SQ BID (WT < 150 kg, CrCl > 30 mL/min) AND *Sequential Compression Device (SCD) Assessment and Plan Problem List: (1) Sepsis ICD Code: A41.9 - Sepsis, unspecified organism (2) PNA (pneumonia) ICD Code: J18.9 - Pneumonia, unspecified organism (3) Lung abscess ICD Code: J85.2 - Abscess of lung without pneumonia (4) Tobacco abuse ICD Code: Z72.0 - Tobacco use Assessment and Plan A/P: 1. Sepsis: Temp 103, HR 113, WBC 22, Source-PNA/Lung Abscess. S/p Vanc/Zosyn and Blood Cultures. Follow cultures, continue IV Abx. 2. PNA: CXR w/ left base pneumonia, images reviewed by me. Continue w/ IV Abx as above. DuoNeb prn. 3. Lung Abscess: CT Chest w/ 5.7cm abscess LLL, no h/o alcohol/aspiration per patient. IV Abx, Check Sputum Cultures, consult Pulmonology/ID for further eval /recommendations. 4. Tobacco Abuse: Smokes 5packs Black & Mild/day. Ativan/NicoDerm prn if needed. 5. DVT Prophylaxis: SCD/Teds. 6. Social work for d/c planning as needed. 7. Case discussed w/ ER physician at length. Physician Certification 2 Midnight Certification Type: Admission for Inpatient Services Order for Inpatient Services The services are ordered in accordance with Medicare regulations or non- Medicare payer requirements, as applicable. In the case of services not specified as inpatient-only, they are appropriately provided as inpatient services in accordance with the 2-midnight benchmark. Estimated LOS (days): 2 days is the estimated time the patient will need to remain in the hospital, assuming treatment plan goals are met and no additional complications. Post-Hospital Plan: Not yet determined Natalie Ramirez MD Jul 07, 2017 04:15
[2017-07-07 04:46] LABS: BLOOD, URINE SMALL (NEG); GLUCOSE,URINE NEG (NEG); HYALINE CAST, URINE 1 /lpf (RARE); KETONE, URINE NEG (NEG); NITRITE,URINE NEG (NEG); PH, URINE 6.5 (5.0-8.5); URINE COLOR YELLOW (YELLW/STRAW)
[2017-07-07 04:49] LABS: COMMENT (UR) CULT NOT INDICATED; CULTURE IF INDICATED CULT NOT INDICATED
[2017-07-07] MEDS: ACETAMINOPHEN/HYDROcodone 325 MG/5 MG TAB PO PRN ×3 (05:01→12:56)
[2017-07-07] MEDS: RESP: ALBUTEROL 2.5 MG/IPRATROPIUM 0.5 MG NEB (SCH) NEB ×5 (08:29→21:01)
[2017-07-07] MEDS: DOCUSATE SODIUM 50 MG/SENNA 8.6 MG TAB PO SCH ×2 (08:58→20:57)
[2017-07-07] MEDS: SODIUM CHLORIDE 0.9% FLUSH 10 ML FLUSH IV FLUSH SCH ×2 (09:00→20:56)
[2017-07-07] MEDS ORDERED: CEFEPIME INJ 1,000 MG in SODIUM CHLORIDE 0.9% INJ 100 ML IV SCH (09:00)
[2017-07-07] MEDS: SODIUM CHLOR 0.9% 1000 ML INJ 1,000 ML IV SCH ×2 (09:06→21:00)
--- NOTE | 2017-07-07 09:31 | HHI.PR ---
Subjective Remarks In bed, says he is very tired. Had fevers and chills overnight. no chest pain, no sob, sattign well on room air at this time. Appetite is coming back. Has no n/v/d/c. Objective Vitals Vital Signs Date Time Temp Pulse Resp B/P (MAP) Pulse Ox O2 Delivery O2 Flow Rate FiO2 07/07/17 08:44 97 Nasal Cannula 1.00 07/07/17 08:00 100.5 95 20 140/77 (98) 98 07/07/17 05:53 18 07/07/17 04:00 99.3 96 20 138/82 (100) 97 07/07/17 01:30 98.9 96 20 137/67 (90) 97 07/07/17 01:24 98.5 97 22 135/65 (88) 99 Nasal Cannula 2.00 07/07/17 00:41 98.5 95 22 135/65 (88) 99 Nasal Cannula 2.00 07/06/17 22:34 30 98 Nasal Cannula 2.00 07/06/17 22:28 102.6 115 34 132/65 (87) 100 I/O 07/06/17 07/06/17 07/06/17 07/07/17 07/07/17 07/07/17 07:00 15:00 23:00 07:00 15:00 23:00 Intake Total 2030 ml Output Total 450 ml Balance 1580 ml Intake Oral 480 ml IV Total 1550 ml Output Urine Total 450 ml # Voids 2 Result Diagram: 07/07/17 0000 07/07/17 0000 Imaging Last Impressions Chest CT 07/06/17 0000 Signed Impressions: Service Date/Time: June 23:41 - CONCLUSION: 1. 5.7 cm abscess in the left lower lobe. Centrally obstructing lesion and malignancy are not excluded. Nathaniel Abdul MD Abdomen/Pelvis CT 07/06/17 0000 Signed Impressions: Service Date/Time: June 23:41 - CONCLUSION: 1. No evidence of acute abdominal or pelvic process. No masses are identified. 2. Pelvic right kidney Nathaniel Abdul MD Objective Remarks GENERAL: Middle-aged male in no acute distress. HEENT: PERRLA, EOMI. No scleral icterus or conjunctival pallor. No lid lag or facial droop. CARDIOVASCULAR: Regular rate and rhythm. No obvious murmurs to auscultation. No chest tenderness to palpation. RESPIRATORY: No obvious rhonchi or wheezing. Clear to auscultation. Breath sounds equal bilaterally, mildly decreased at bases. GASTROINTESTINAL: Abdomen soft, non-tender, nondistended. BS normal. MUSCULOSKELETAL: Extremities without clubbing, cyanosis, or edema. No obvious deformities. NEUROLOGICAL: Awake, alert and oriented x4. No focal neurologic deficits. Moving both upper and lower extremities spontaneously. A/P Problem List: (1) Sepsis ICD Code: A41.9 - Sepsis, unspecified organism (2) PNA (pneumonia) ICD Code: J18.9 - Pneumonia, unspecified organism (3) Lung abscess ICD Code: J85.2 - Abscess of lung without pneumonia (4) Tobacco abuse ICD Code: Z72.0 - Tobacco use Assessment and Plan Sepsis: Temp 103, HR 113, WBC 22 on admission, Source-PNA/Lung Abscess. S/p Vanc/Zosyn and Blood Cultures. Follow cultures, continue IV Abx. ID and pulm consulted. PNA: CXR w/ left base pneumonia, images reviewed by me. Continue w/ IV Abx as above. DuoNeb prn. Lung Abscess: CT Chest w/ 5.7cm abscess LLL, no h/o alcohol/aspiration per patient. IV Abx, Check Sputum Cultures, consult Pulmonology/ID for further eval /recommendations. Tobacco Abuse: Smokes 5packs Black & Mild/day. Ativan/NicoDerm prn if needed. DVT Prophylaxis: SCD/Teds. Case management consulted for d/c planning as needed. Discussed with the patient, nurse. Lilian Shabazz MD Jul 07, 2017 09:31
--- NOTE | 2017-07-07 09:53 | PD.CONS ---
History of Present Illness Service Infectious Disease Consult Requested By Dr Eloy Ramirez Reason for Consult Evaluate patient with PNA/lung abscess Primary Care Physician No Primary Care Physician Diagnoses: History of Present Illness Patient seen and examined. Records reviewed. Patient is a 31-year-old male, presented to the hospital complaining of severe left-sided flank and back pain. Patient stated he started getting sick about for 5 days prior to admission. He just didn't have any appetite, and the food didn't taste really good. He just started taking some liquids, and about 3 days prior to admission, he started having vomiting. Patient also was having some cough, felt feverish, was having sweats. He started experiencing pain and he described it as pain in his left kidney. He pointed out in the left flank, and since yesterday the pain started going to the left lower rib cage laterally going anteriorly. His symptoms were not improving, so he presented to the emergency room on June 05. He was diagnosed to have pneumonia, and he had sepsis criteria for admission. He received Rocephin and Zithromax. Admission was advised, however the patient refused admission, and he was given a prescription for Levaquin. Later on June 05, at home, he apparently started coughing up some blood, and started having significant pain on his left flank and back area. Ambulance was called, and the patient apparently had a fever of 103. Patient never took his temperature at home. He felt feverish though and was having sweats. He also was having some shortness of breath due to the pain. He has been constipated which he attributes to not being able to eat. He states he's been around some people who have been sick, there has been a lot of people sick. No exposure to any sick children. He has no pets. Denies having any syncopal episode. No ear problem. Denies urinary complaints. On presentation, patient has been febrile. His white count is greater than 20, 000. CT of the chest showing left lower lobe pneumonia with multiple cavitation. At the time my exam patient complaining of significant pain on his left side even with very minute movement. He is currently on cefepime, and vancomycin. Infectious disease consultation has been requested to evaluate the patient. Review of Systems Constitutional: COMPLAINS OF: Diaphoretic episodes, Fever, Chills, Change in appetite Eyes: DENIES: Eye pain Ears, nose, mouth, throat: DENIES: Nasal discharge, Oral lesions, Throat pain, Ear Pain, Sinus Pain, Toothache, Odynophagia Respiratory: COMPLAINS OF: Cough, Hemoptysis, Sputum production, Shortness of breath Cardiovascular: COMPLAINS OF: Chest pain, DENIES: Syncope Gastrointestinal: COMPLAINS OF: Abdominal pain, Constipation, Nausea, Vomiting , Difficulty Swallowing, Anorexia, DENIES: Diarrhea Genitourinary: DENIES: Urgency, Hematuria, Dysuria, Penile Discharge Musculoskeletal: COMPLAINS OF: Muscle aches, Back pain, DENIES: Neck pain Integumentary: DENIES: Pruritus, Rash Hematologic/lymphatic: DENIES: Bruising Neurologic: DENIES: Headache, Localized weakness Psychiatric: DENIES: Hallucinations Past Family Social History Allergies: Coded Allergies: No Known Allergies (Unverified Allergy, Unknown, 07/07/17) Past Medical History None Past Surgical History Hernia repair Reported Medications I attest that I obtained, updated or reviewed the home and current medications. Reported Meds & Active Scripts Active Proair Hfa (Albuterol Sulfate) 90 Mcg Hfa.aer.ad 2 [place] INH Q6HR Levaquin 750 mg po daily Active Ordered Medications I attest that I obtained, updated or reviewed the home and current medications. Current Medications (Trade) Dose Ordered Sig/Jennifer Route Start Time Stop Time Status Last Admin (Duoneb Neb) 1 ampule Q4HR WHILE AWAKE NEB NEB 07/07/17 08:00 07/07/17 08:29 (Duoneb Neb) 1 ampule Q2HR NEB PRN NEB 07/07/17 01:00 Pharmacy Profile Note 0 ml @ 0 mls/hr UNSCH OTHER 07/07/17 01:00 Cefepime HCl 1000 mg/Sodium Chloride 100 ml @ 200 mls/hr Q12H IV 07/07/17 09:00 07/07/17 08:59 Sodium Chloride 1,000 ml @ 100 mls/hr Q10H IV 07/07/17 00:59 07/07/17 09:06 (NS Flush) 2 ml UNSCH PRN IV FLUSH 07/07/17 01:00 (NS Flush) 2 ml BID IV FLUSH 07/07/17 09:00 (Zofran Inj) 4 mg Q6H PRN IVP 07/07/17 01:00 (Tylenol) 650 mg Q6H PRN PO 07/07/17 01:00 ([place] 5-325 Mg) 1 tab Q4H PRN PO 07/07/17 01:00 07/07/17 08:58 (Morphine Inj) 2 mg Q3H PRN IV PUSH 07/07/17 01:00 (Arelis-Colace) 1 tab BID PO 07/07/17 09:00 07/07/17 08:58 (Milk Of Magnesia Liq) 30 ml Q12H PRN PO 07/07/17 01:00 (Senokot) 17.2 mg Q12H PRN PO 07/07/17 01:00 (Dulcolax Supp) 10 mg DAILY PRN RECTAL 07/07/17 01:00 (Lactulose Liq) 30 ml DAILY PRN PO 07/07/17 01:00 Vancomycin HCl 1250 mg/Sodium Chloride 262.5 ml @ 250 mls/hr Q8H IV 07/07/17 10:00 Miscellaneous Information SPECIFIC LAB TO BE ... ONCE ONCE .XX 07/08/17 09:45 07/08/17 09:46 Family History Unremarkable Social History Single, lives alone in own home From [place], moved to [place] several years ago States he is retired Negative for alcohol. Smokes 5 packs Black and Mild per day. +Marijuana. Denies IVDU Physical Exam Vital Signs Vital Signs Date Time Temp Pulse Resp B/P (MAP) Pulse Ox O2 Delivery O2 Flow Rate FiO2 07/07/17 08:44 97 Nasal Cannula 1.00 07/07/17 08:00 100.5 95 20 140/77 (98) 98 07/07/17 05:53 18 07/07/17 04:00 99.3 96 20 138/82 (100) 97 07/07/17 01:30 98.9 96 20 137/67 (90) 97 07/07/17 01:24 98.5 97 22 135/65 (88) 99 Nasal Cannula 2.00 07/07/17 00:41 98.5 95 22 135/65 (88) 99 Nasal Cannula 2.00 07/06/17 22:34 30 98 Nasal Cannula 2.00 07/06/17 22:28 102.6 115 34 132/65 (87) 100 Physical Exam GENERAL: Patient is a well-nourished, well-developed male, awake and alert, not in respiratory distress. He is in pain whenever he moves on the bed SKIN: Warm and dry. No generalized rash, no ecchymoses and no evidence of embolic lesions. HEAD: Atraumatic. Normocephalic. No temporal wasting, or tenderness. EYES: Silex conjunctiva. No petechia or hemorrhage. Pupils equal, round and reactive to light. Extraocular movements full and intact. No scleral icterus. No injection or drainage. EARS, NOSE AND THROAT: Nose without bleeding or purulent nasal discharge. No sinus tenderness. Mucous membranes pink and moist. No oral lesions noted. No exudate. No oral thrush. NECK: Trachea midline. Supple and not tender, no meningeal signs CARDIOVASCULAR: Regular rate and rhythm. No murmurs, rubs or gallops heard RESPIRATORY: Tender on palpation of his lower rib cage and whole left side of his back. Decreased breath sounds lower half of left side, with decreased vocal fremitus on L base, E to A changes in L mid lung field. Some scattered wheezing. ABDOMEN: Soft, mildly distended, with some tenderness on L side, difficulty examining L side since I think he is splinting. No rebound. Bowel sounds present and normoactive. BACK: Tender on palpation whole L side from lower rib cage, ?some discoloration on his L flank like bruise color, but no induration noted. EXTREMITIES: No clubbing, cyanosis, or edema. No joint effusion, has good ROM. No calf tenderness. Well perfused and warm. NEUROLOGICAL: Awake and alert. Cranial nerves grossly intact. Motor grossly within normal limits. PSYCHIATRIC: Normal affect, calm and cooperative. LINE: No evidence of infection Laboratory Laboratory Tests Test 07/07/17 00:00 07/07/17 04:30 White Blood Count 22.2 Red Blood Count 4.48 Hemoglobin 13.8 Hematocrit 40.7 Mean Corpuscular Volume 90.8 Mean Corpuscular Hemoglobin 30.8 Mean Corpuscular Hemoglobin Concent 34.0 Red Cell Distribution Width 13.0 Platelet Count 210 Mean Platelet Volume 9.4 Neutrophils (%) (Auto) 78.2 Lymphocytes (%) (Auto) 6.9 Monocytes (%) (Auto) 14.2 Eosinophils (%) (Auto) 0.0 Basophils (%) (Auto) 0.7 Neutrophils # (Auto) 17.4 Lymphocytes # (Auto) 1.5 Monocytes # (Auto) 3.2 Eosinophils # (Auto) 0.0 Basophils # (Auto) 0.1 CBC Comment AUTO DIFF Differential Comment AUTO DIFF CONFIRMED Toxic Vacuolation PRESENT Dohle Bodies PRESENT Platelet Estimate NORMAL Platelet Morphology Comment NORMAL Red Cell Morphology Comment NORMAL Blood Urea Nitrogen 9 Creatinine 1.04 Random Glucose 117 Total Protein 7.1 Albumin 2.9 Calcium Level 8.1 Alkaline Phosphatase 69 Aspartate Amino Transf (AST/SGOT) 23 Alanine Aminotransferase (ALT/SGPT) 31 Total Bilirubin 1.3 Sodium Level 136 Potassium Level 3.7 Chloride Level 102 Carbon Dioxide Level 26.0 Anion Gap 8 Estimat Glomerular Filtration Rate 101 Urine Color YELLOW Urine Turbidity CLEAR Urine pH 6.5 Urine Specific [place] 1.008 Urine Protein TRACE Urine Glucose (UA) NEG Urine Ketones NEG Urine Occult Blood SMALL Urine Nitrite NEG Urine Bilirubin NEG Urine Urobilinogen 2.0 Urine Leukocyte Esterase NEG Urine RBC 2 Urine WBC LESS THAN 1 Urine Hyaline Casts 1 Microscopic Urinalysis Comment CULT NOT INDICATED Urine Opiates Screen NEG Urine Barbiturates Screen NEG Urine Amphetamines Screen NEG Urine Benzodiazepines Screen NEG Urine Cocaine Screen NEG Urine Cannabinoids Screen NEG Date/Time Source Procedure Growth Status 07/07/17 00:10 Blood Peripheral Aerobic Blood Culture Pending Received 07/07/17 00:10 Blood Peripheral Anaerobic Blood Culture Pending Received Result Diagram: 07/07/17 0000 07/07/17 0000 Imaging RADIOLOGY STUDIES/FILMS REVIEWED Chest CT 07/06/17 0000 Signed Impressions: Service Date/Time: June 23:41 - CONCLUSION: 1. 5.7 cm abscess in the left lower lobe. Centrally obstructing lesion and malignancy are not excluded. Nathaniel Abdul MD Abdomen/Pelvis CT 07/06/17 0000 Signed Impressions: Service Date/Time: June 23:41 - CONCLUSION: 1. No evidence of acute abdominal or pelvic process. No masses are identified. 2. Pelvic right kidney Nathaniel Abdul MD Chest X-Ray 07/06/17 1000 Signed Impressions: Service Date/Time: June 10:03 - CONCLUSION: Mild airspace opacity in the left lower lobe could represent airspace consolidation and a pneumonia. No pleural effusion is visualized. Danny Haile MD Assessment and Plan Assessment and Plan IMPRESSION Sepsis due to pulmonary infection - has fever, leukocytosis, tachycardia,. dyspnea Cavitary pneumonia - ?CAP, now cavitary due to his ?aspiration, has been having N/V Pain in L flank - CT A/P negative, probably referred due to PNA RECOMMENDATION Continue Cefepime Continue Vancomycin Add Zithromax and Flagyl Check Legionella and Pneumococcal Ag Follow C/S: sputum and blood culture Adjust Abx once C/S available Will determine course of Rx once work-up is completed I will follow along with you Thank you for this consultation Discussed Condition With Explained plan to the patient D/W Renate Craig MD Jul 07, 2017 09:53
[2017-07-07] MEDS: VANCOMYCIN INJ 1,250 MG in SODIUM CHLOR 0.9% 250 ML INJ 250 ML IV SCH ×2 (10:09→17:43)
[2017-07-07 12:14] LABS: AUTOMATED NEUTROPHIL # 15.8 TH/MM3 (1.8-7.7); BASOPHIL # 0.1 TH/MM3 (0-0.2); BASOPHIL % 0.3 % (0.0-2.0); HEMATOCRIT 36.7 % (39.0-51.0); HEMO FLAGS DIFF FINAL; LYMPH % 6.9 % (9.0-44.0); LYMPHOCYTE # 1.3 TH/MM3 (1.0-4.8); MEAN CELL VOLUME 91.6 FL (80.0-100.0); MEAN CORPUSCULAR HGB CONC 33.8 % (32.0-36.0); MONO % 8.7 % (0.0-8.0); NEUT % 84.1 % (16.0-70.0); PLATELET COUNT 232 TH/MM3 (150-450); RED CELL DISTRIBUTION WIDTH 13.1 % (11.6-17.2); WHITE BLOOD COUNT 18.8 TH/MM3 (4.0-11.0)
[2017-07-07 12:24] LABS: AMYLASE 32 U/L (25-115)
[2017-07-07] MEDS: metroNIDAZOLE 500 MG TAB PO SCH ×2 (12:26→19:00)
[2017-07-07] MEDS: MORPHINE SULFATE 4 MG/ML INJ IV PUSH PRN ×3 (12:51→21:00)
[2017-07-07] MEDS: CEFEPIME INJ 2,000 MG in SODIUM CHLORIDE 0.9% INJ 100 ML IV SCH (20:56)
[2017-07-07 21:13] LABS: INTERNATIONAL NORMALIZED RATIO 1.1 RATIO; PROTHROMBIN TIME - PATIENT 11.7 SEC (9.8-11.6)
--- NOTE | 2017-07-07 21:16 | MB ---
cc: Porsha WEST M.D. DATE OF CONSULTATION 07/07/17 REASON FOR CONSULTATION Lung abscess. HISTORY OF PRESENT ILLNESS This is a 31-year-old man with a history of back pain and left-sided flank pains for at least 5 days prior to this admission, was admitted through the emergency room with fever and shortness of breath. The patient apparently had episodes of vomiting and loss of appetite and may have aspirated. He was having chills and fevers and sweats and pains were quite severe in the left flank. Upon arrival in the ER he had a CT of the chest which demonstrated a large abscess cavity in the left lower lobe as well as smaller locules in the left lung area. He was started on broad-spectrum antibiotic coverage and has been placed on oxygen via nasal cannula and receiving morphine for pain as well as Percocet. His white count was elevated to 22,000 and hemoglobin was 13.8. The patient has no hemoptysis. He is unable to take deep breaths due to the pain in the chest area and he has had some nausea and loss of appetite. PAST HISTORY Essentially unremarkable except for hernia repair. No history of lung disease or diabetes. MEDICATIONS 1. Levaquin 750 milligrams a day. 2. ProAir inhaler p.r.n. FAMILY HISTORY Noncontributory. ALLERGIES No drug allergies. REVIEW OF SYSTEMS The patient has had loss of appetite, fever, night sweats, has cough and chest pains, dryness of the mouth, some flank pain and abdominal pains. No leg swelling or calf muscle pains. Denies urinary symptoms or hematuria. No headaches or blackouts. PHYSICAL EXAMINATION GENERAL: This well-built young -[place] male who is anxious and in moderate distress and seems to be in pain. VITAL SIGNS: His blood pressure 130/70, pulse is 105, respirations 24, temperature 99. HEENT: Head normocephalic. Pupils are reactive. Tongue is dry. Throat is injected. Ears, no inflammation. NECK: Supple. No bruits or thyroid enlargement or lymphadenopathy. CHEST: Decreased excursions. Breath sounds markedly diminished over the left mid lower chest with occasional wheezes over the left lung field. HEAET: Heart sounds are regular S1-S2. No murmur. ABDOMEN: Soft, protuberant. Tender in the left flank and left upper quadrant. Bowel sounds are active. No organomegaly. EXTREMITIES: No lesions. No edema. No calf tenderness. Reflexes are 1+ with no gross motor deficits. Cranial nerves grossly intact. SKIN: No lesions are noted. IMPRESSION 1. Left lower lobe pneumonia with lung abscess. 2. Sepsis. 3. Pleuritic chest pain. PLAN The patient will be continued on cefepime 2 grams IV b.i.d. and vancomycin and Zithromax 500 milligrams daily. Sputum will be sent for gram stain and culture, nebulized albuterol/Atrovent solution added q.i.d. and a coagulation profile obtained. A follow up chest x-ray has been ordered. If he is clinically stable we will get a pulmonary function study and also schedule him for bronchoscopy and biopsy. Thank you Dr. Panda for this consultation. Danny West MD JRACHANA/ALEC /8:01 PM /9:05 PM
[2017-07-07] MEDS ORDERED: KETOROLAC TROMETHAMINE 30 MG/ML (IVP) VIAL IV PUSH ONE (22:00)
[2017-07-08] VITALS (10 sets, daily range): BP systolic 125–158; BP diastolic 74–91; PULSE 81–114; RESP 16–22; TEMP 98.7–101.7; O2SAT 95–99
[2017-07-08] MEDS: VANCOMYCIN INJ 1,250 MG in SODIUM CHLOR 0.9% 250 ML INJ 250 ML IV SCH ×3 (01:26→16:48)
[2017-07-08] MEDS: metroNIDAZOLE 500 MG TAB PO SCH ×3 (02:58→16:48)
[2017-07-08] MEDS: RESP: ALBUTEROL 2.5 MG/IPRATROPIUM 0.5 MG NEB (PRN) NEB ×2 (03:54→22:09)
[2017-07-08] MEDS: MORPHINE SULFATE 4 MG/ML INJ IV PUSH PRN ×5 (04:12→20:44)
[2017-07-08 05:42] LABS: BASOPHIL # 0.1 TH/MM3 (0-0.2); BASOPHIL % 0.5 % (0.0-2.0); EOSINOPHIL % 0.1 % (0.0-4.0); HEMATOCRIT 37.6 % (39.0-51.0); LYMPH % 5.4 % (9.0-44.0); LYMPHOCYTE # 1.1 TH/MM3 (1.0-4.8); MEAN CELL VOLUME 91.9 FL (80.0-100.0); MEAN CORPUSCULAR HEMOGLOBIN 30.8 PG (27.0-34.0); MEAN CORPUSCULAR HGB CONC 33.5 % (32.0-36.0); MONO % 12.1 % (0.0-8.0); NEUT % 81.9 % (16.0-70.0); PLATELET COUNT 270 TH/MM3 (150-450); RED BLOOD COUNT 4.09 MIL/MM3 (4.50-5.90); RED CELL DISTRIBUTION WIDTH 13.1 % (11.6-17.2); WHITE BLOOD COUNT 19.5 TH/MM3 (4.0-11.0)
[2017-07-08 05:45] LABS: ALKALINE PHOSPHATASE 73 U/L (45-117); ALT (GPT) 25 U/L (12-78); ANION GAP 8 MEQ/L (5-15); AST (GOT) 13 U/L (15-37); BICARBONATE 24.6 MEQ/L (21.0-32.0); BLOOD UREA NITROGEN 7 MG/DL (7-18); CHLORIDE 106 MEQ/L (98-107); GLOMERULAR FILTRATION RATE 141 ML/MIN (>89); POTASSIUM 3.7 MEQ/L (3.5-5.1); SODIUM (NA) 139 MEQ/L (136-145); TOTAL BILIRUBIN ADULT 0.6 MG/DL (0.2-1.0)
[2017-07-08 06:38] LABS: HEMO FLAGS AUTO DIFF
--- NOTE | 2017-07-08 08:19 | HHI.PR ---
Subjective Remarks Patient returned from x-rays. Denies having cough at this time. However was comfortable night blood-tinged sputum. Spikes fevers, and chills overnight. He is very tired. No nausea or vomiting is able to eat. No diarrhea or constipation. Objective Vitals Vital Signs Date Time Temp Pulse Resp B/P (MAP) Pulse Ox O2 Delivery O2 Flow Rate FiO2 07/08/17 04:17 17 07/08/17 04:00 99.7 110 18 146/81 (102) 96 07/08/17 00:40 Room Air 07/08/17 00:00 99.8 102 16 134/74 (94) 95 07/07/17 23:03 18 07/07/17 21:02 94 Nasal Cannula 1.50 07/07/17 20:25 113 07/07/17 19:00 101.2 113 17 128/77 (94) 95 07/07/17 14:53 100.9 112 18 130/76 (94) 96 07/07/17 12:00 97 22 136/81 (99) 100 07/07/17 08:44 97 Nasal Cannula 1.00 I/O 07/07/17 07/07/17 07/07/17 07/08/17 07/08/17 07/08/17 07:00 15:00 23:00 07:00 15:00 23:00 Intake Total 2030 ml 950 ml 2625.5 ml 502.5 ml Output Total 450 ml 800 ml Balance 1580 ml 950 ml 1825.5 ml 502.5 ml Intake Oral 480 ml 600 ml 480 ml 240 ml IV Total 1550 ml 350 ml 2145.5 ml 262.5 ml Output Urine Total 450 ml 800 ml # Voids 2 4 1 # Bowel Movements 0 0 0 Result Diagram: 07/08/17 0440 07/08/17 0440 Imaging Last Impressions Chest X-Ray 07/08/17 0600 Signed Impressions: Service Date/Time: Saturday, July 08, 2017 08:42 - CONCLUSION: Increasing left lower lobe airspace disease. Ashvin Santos MD Chest CT 07/06/17 0000 Signed Impressions: Service Date/Time: June 23:41 - CONCLUSION: 1. 5.7 cm abscess in the left lower lobe. Centrally obstructing lesion and malignancy are not excluded. Nathaniel Abdul MD Abdomen/Pelvis CT 07/06/17 0000 Signed Impressions: Service Date/Time: June 23:41 - CONCLUSION: 1. No evidence of acute abdominal or pelvic process. No masses are identified. 2. Pelvic right kidney Nathaniel Abdul MD Objective Remarks GENERAL: Middle-aged male in no acute distress. HEENT: PERRLA, EOMI. No scleral icterus or conjunctival pallor. No lid lag or facial droop. CARDIOVASCULAR: Regular rate and rhythm. No obvious murmurs to auscultation. No chest tenderness to palpation. RESPIRATORY: No obvious rhonchi or wheezing. Clear to auscultation. Breath sounds equal bilaterally, mildly decreased at bases. GASTROINTESTINAL: Abdomen soft, non-tender, nondistended. BS normal. MUSCULOSKELETAL: Extremities without clubbing, cyanosis, or edema. No obvious deformities. NEUROLOGICAL: Awake, alert and oriented x4. No focal neurologic deficits. Moving both upper and lower extremities spontaneously. A/P Problem List: (1) Sepsis ICD Code: A41.9 - Sepsis, unspecified organism (2) PNA (pneumonia) ICD Code: J18.9 - Pneumonia, unspecified organism (3) Lung abscess ICD Code: J85.2 - Abscess of lung without pneumonia (4) Tobacco abuse ICD Code: Z72.0 - Tobacco use Assessment and Plan Sepsis: Temp 103, HR 113, WBC 22 on admission, Source-PNA/Lung Abscess. Continue Vanc/cefepime/ azithromycin. Follow Blood Cultures. Continue IV Abx per ID recommendations Plan for bronch with biopsy per pulm. PNA: CXR w/ left base pneumonia, images reviewed by me. Continue w/ IV Abx as above. DuoNeb prn. Lung Abscess: CT Chest w/ 5.7cm abscess LLL, no h/o alcohol/aspiration per patient. IV Abx, Check Sputum Cultures, consult Pulmonology/ID for further eval /recommendations. Continue abx . Plan for bronch with biopsy Tobacco Abuse: Smokes 5packs Black & Mild/day. Ativan/NicoDerm prn if needed. DVT Prophylaxis: SCD/Teds. Case management consulted for d/c planning as needed. Discussed with the patient, nurse. Lilian Shabazz MD Jul 08, 2017 08:19
[2017-07-08] MEDS: DOCUSATE SODIUM 50 MG/SENNA 8.6 MG TAB PO SCH ×2 (08:22→20:44)
[2017-07-08] MEDS: CEFEPIME INJ 2,000 MG in SODIUM CHLORIDE 0.9% INJ 100 ML IV SCH ×2 (08:23→20:51)
[2017-07-08] MEDS: SODIUM CHLOR 0.9% 1000 ML INJ 1,000 ML IV SCH ×3 (08:23→22:45)
[2017-07-08] MEDS: ACETAMINOPHEN 325 MG TAB PO PRN ×2 (08:27→16:49)
[2017-07-08] MEDS: SODIUM CHLORIDE 0.9% FLUSH 10 ML FLUSH IV FLUSH SCH ×2 (08:34→20:45)
[2017-07-08 08:52] LABS: BANDS 14 % (0-6); POLYS (SEG NEUTROPHILS) 63 % (16-70); WBC DIFF SAMPLE 100
[2017-07-08 08:53] LABS: CORRECTED NUCLEATED RBC 1 /100 WBC (0-0); PLATELET ESTIMATE SMEAR NORMAL (NORMAL); PLATELET MORPHOLOGY NORMAL (NORMAL); SCAN/DIFF FINAL DIFF MANUAL
--- NOTE | 2017-07-08 09:08 | RADRPT ---
EXAM DATE/TIME: 07/08/2017 08:42 [facility] COMPARISON: CHEST SINGLE AP, July 06, 2017, 10:03. CT THORAX W/O CONTRAST, July 06, 2017, 23:41. INDICATIONS : Pneumonia. MEDICAL HISTORY : None. SURGICAL HISTORY : None. ENCOUNTER: Subsequent ACUITY: 3 days PAIN SCORE: 0/10 LOCATION: Bilateral chest FINDINGS: Extensive opacity is evident throughout the left lung base. Compared to the recent CT of the thorax a nd chest radiograph there is increasing infiltrate. Right lung remains clear. Heart and mediastinal structures are stable. CONCLUSION: Increasing left lower lobe airspace disease. Ashvin Santos MD on July 08, 2017 at 9:04 Board Certified Radiologist. This report was verified electronically.
[2017-07-08] MEDS: RESP: ALBUTEROL 2.5 MG/IPRATROPIUM 0.5 MG NEB (SCH) NEB ×5 (09:24→20:00)
[2017-07-08] MEDS ORDERED: PHARMACY ORDERED LAB ONE (09:45)
--- NOTE | 2017-07-08 14:57 | HHI.PR ---
Subjective Remarks Has some pain and cough with brown expectoration.Low grade Fever Objective Vital Signs Date Time Temp Pulse Resp B/P (MAP) Pulse Ox O2 Delivery O2 Flow Rate FiO2 07/08/17 12:00 100.0 103 18 155/86 (109) 95 07/08/17 09:26 97 Nasal Cannula 3.00 07/08/17 08:00 98.7 81 18 158/82 (107) 96 07/08/17 04:17 17 07/08/17 04:00 99.7 110 18 146/81 (102) 96 07/08/17 00:40 Room Air 07/08/17 00:00 99.8 102 16 134/74 (94) 95 07/07/17 23:03 18 07/07/17 21:02 94 Nasal Cannula 1.50 07/07/17 20:25 113 07/07/17 19:00 101.2 113 17 128/77 (94) 95 I/O 07/07/17 07/07/17 07/07/17 07/08/17 07/08/17 07/08/17 07:00 15:00 23:00 07:00 15:00 23:00 Intake Total 2030 ml 950 ml 2625.5 ml 502.5 ml Output Total 450 ml 800 ml Balance 1580 ml 950 ml 1825.5 ml 502.5 ml Intake Oral 480 ml 600 ml 480 ml 240 ml IV Total 1550 ml 350 ml 2145.5 ml 262.5 ml Output Urine Total 450 ml 800 ml # Voids 2 4 1 # Bowel Movements 0 0 0 Result Diagram: 07/08/1743907/08/17439 Objective Remarks GENERAL: This well-built young -Cypriot male who is anxious and in moderate distress and seems to be in pain. VITAL SIGNS: His blood pressure 130/70, pulse is 105, respirations 24, temperature 99. HEENT: Head normocephalic. Pupils are reactive. Tongue is dry. Throat is injected. Ears, no inflammation. NECK: Supple. No bruits or thyroid enlargement or lymphadenopathy. CHEST: Decreased excursions. Breath sounds markedly diminished over the left mid lower chest with occasional wheezes over the left lung field. HEART: Heart sounds are regular S1-S2. No murmur. ABDOMEN: Soft, protuberant. Tender in the left flank and left upper quadrant. Bowel sounds are active. No organomegaly. EXTREMITIES: No lesions. No edema. No calf tenderness. Reflexes are 1+ with no gross motor deficits. Cranial nerves grossly intact. SKIN: No lesions are noted. Assessment and Plan Assessment and Plan IMPRESSION 1. Left lower lobe pneumonia with lung abscess. 2. Sepsis. 3. Pleuritic chest pain. Plan : 1. Cont Antibiotics. 2. O2 2 L. 3. Will schedule bronchoscopy on monday, and risks were discussed. 4. IS qid, bedside 5. Chest Xray in am Porsha West MD Jul 08, 2017 14:57
[2017-07-08] MEDS: DEXT 5%-NACL 0.45% 1000 ML INJ 1,000 ML IV SCH (15:00)
--- NOTE | 2017-07-08 15:18 | HHI.IDPN ---
Subjective Subjective Remarks Patient is a 31-year-old male, presented to the hospital complaining of severe left-sided flank and back pain. Patient stated he started getting sick about for 5 days prior to admission. He just didn't have any appetite, and the food didn't taste really good. He just started taking some liquids, and about 3 days prior to admission, he started having vomiting. Patient also was having some cough, felt feverish, was having sweats. He started experiencing pain and he described it as pain in his left kidney. He pointed out in the left flank, and since yesterday the pain started going to the left lower rib cage laterally going anteriorly. His symptoms were not improving, so he presented to the emergency room on June 05. He was diagnosed to have pneumonia, and he had sepsis criteria for admission. He received Rocephin and Zithromax. Admission was advised, however the patient refused admission, and he was given a prescription for Levaquin. Later on June 05, at home, he apparently started coughing up some blood, and started having significant pain on his left flank and back area. Ambulance was called, and the patient apparently had a fever of 103. Patient never took his temperature at home. He felt feverish though and was having sweats. He also was having some shortness of breath due to the pain. He has been constipated which he attributes to not being able to eat. He states he's been around some people who have been sick, there has been a lot of people sick. No exposure to any sick children. He has no pets. Denies having any syncopal episode. No ear problem. Denies urinary complaints. On presentation, patient has been febrile. His white count is greater than 20, 000. CT of the chest showing left lower lobe pneumonia with multiple cavitation. At the time my exam patient complaining of significant pain on his left side even with very minute movement. He is currently on cefepime, and vancomycin. Infectious disease consultation has been requested to evaluate the patient. Antibiotics Cefepime IV Vanco IV Flagyl Levaquin Lines Line sites with no e.o infection Past Medical History Past Medical History None Past Surgical History Hernia repair Allergies: Coded Allergies: No Known Allergies (Unverified Allergy, Unknown, 07/07/17) Objective . Vital Signs Date Time Temp Pulse Resp B/P (MAP) Pulse Ox O2 Delivery O2 Flow Rate FiO2 07/08/17 14:54 97 Nasal Cannula 3.00 07/08/17 13:03 112 07/08/17 12:00 100.0 103 18 155/86 (109) 95 07/08/17 09:26 97 Nasal Cannula 3.00 07/08/17 08:00 98.7 81 18 158/82 (107) 96 07/08/17 04:17 17 07/08/17 04:00 99.7 110 18 146/81 (102) 96 07/08/17 00:40 Room Air 07/08/17 00:00 99.8 102 16 134/74 (94) 95 07/07/17 23:03 18 07/07/17 21:02 94 Nasal Cannula 1.50 07/07/17 20:25 113 07/07/17 19:00 101.2 113 17 128/77 (94) 95 . Laboratory Tests Test 07/07/17 00:00 07/07/17 11:45 07/08/17 04:40 White Blood Count 22.2 TH/MM3 18.8 TH/MM3 19.5 TH/MM3 Red Blood Count 4.48 MIL/MM3 4.00 MIL/MM3 4.09 MIL/MM3 Hemoglobin 13.8 GM/DL 12.4 GM/DL 12.6 GM/DL Hematocrit 40.7 % 36.7 % 37.6 % Mean Corpuscular Volume 90.8 FL 91.6 FL 91.9 FL Mean Corpuscular Hemoglobin 30.8 PG 31.0 PG 30.8 PG Mean Corpuscular Hemoglobin Concent 34.0 % 33.8 % 33.5 % Red Cell Distribution Width 13.0 % 13.1 % 13.1 % Platelet Count 210 TH/MM3 232 TH/MM3 270 TH/MM3 Mean Platelet Volume 9.4 FL 8.8 FL 8.8 FL Neutrophils (%) (Auto) 78.2 % 84.1 % 81.9 % Lymphocytes (%) (Auto) 6.9 % 6.9 % 5.4 % Monocytes (%) (Auto) 14.2 % 8.7 % 12.1 % Eosinophils (%) (Auto) 0.0 % 0.0 % 0.1 % Basophils (%) (Auto) 0.7 % 0.3 % 0.5 % Neutrophils # (Auto) 17.4 TH/MM3 15.8 TH/MM3 16.0 TH/MM3 Lymphocytes # (Auto) 1.5 TH/MM3 1.3 TH/MM3 1.1 TH/MM3 Monocytes # (Auto) 3.2 TH/MM3 1.6 TH/MM3 2.4 TH/MM3 Eosinophils # (Auto) 0.0 TH/MM3 0.0 TH/MM3 0.0 TH/MM3 Basophils # (Auto) 0.1 TH/MM3 0.1 TH/MM3 0.1 TH/MM3 CBC Comment AUTO DIFF DIFF FINAL AUTO DIFF Differential Comment AUTO DIFF CONFIRMED FINAL DIFF MANUAL Toxic Vacuolation PRESENT Dohle Bodies PRESENT Platelet Estimate NORMAL NORMAL Platelet Morphology Comment NORMAL NORMAL Red Cell Morphology Comment NORMAL Differential Total Cells Counted 100 Neutrophils % (Manual) 63 % Band Neutrophils % 14 % Lymphocytes % 13 % Monocytes % 10 % Neutrophils # (Manual) 15.0 TH/MM3 Nucleated Red Blood Cells 1 /100 WBC Laboratory Tests Test 07/07/17 00:00 07/07/17 11:45 07/08/17 04:40 Blood Urea Nitrogen 9 MG/DL 7 MG/DL Creatinine 1.04 MG/DL 0.78 MG/DL Random Glucose 117 MG/DL 137 MG/DL Total Protein 7.1 GM/DL 6.6 GM/DL Albumin 2.9 GM/DL 2.3 GM/DL Calcium Level 8.1 MG/DL 8.3 MG/DL Alkaline Phosphatase 69 U/L 73 U/L Aspartate Amino Transf (AST/SGOT) 23 U/L 13 U/L Alanine Aminotransferase (ALT/SGPT) 31 U/L 25 U/L Total Bilirubin 1.3 MG/DL 0.6 MG/DL Sodium Level 136 MEQ/L 139 MEQ/L Potassium Level 3.7 MEQ/L 3.7 MEQ/L Chloride Level 102 MEQ/L 106 MEQ/L Carbon Dioxide Level 26.0 MEQ/L 24.6 MEQ/L Anion Gap 8 MEQ/L 8 MEQ/L Estimat Glomerular Filtration Rate 101 ML/MIN 141 ML/MIN Amylase Level 32 U/L Lipase 65 U/L Microbiology Date/Time Source Procedure Growth Status 07/07/17 00:10 Blood Peripheral Aerobic Blood Culture - Preliminary NO GROWTH IN 1 DAY Resulted 07/07/17 00:10 Blood Peripheral Anaerobic Blood Culture - Preliminary NO GROWTH IN 1 DAY Resulted 07/07/17 00:00 Blood Peripheral Aerobic Blood Culture - Preliminary NO GROWTH IN 1 DAY Resulted 07/07/17 00:00 Blood Peripheral Anaerobic Blood Culture - Preliminary NO GROWTH IN 1 DAY Resulted 07/07/17 17:30 Sputum Expectorated Sputum Gram Stain - Final Resulted 07/07/17 17:30 Sputum Expectorated Sputum Sputum Culture - Preliminary IMMATURE GROWTH - REINCUBATE Resulted 07/07/17 21:15 Urine Clean Catch Legionella Antigen - Final PRESUMPTIVE NEGATIVE FOR LEGIONELLA P... Complete 07/07/17 21:15 Urine Clean Catch Streptococcus pneumoniae Antigen (M - Final PRESUMPTIVE NEGATIVE FOR STREPTOCOCCU... Complete Imaging Last Impressions Chest X-Ray 07/08/17 0600 Signed Impressions: Service Date/Time: Saturday, July 08, 2017 08:42 - CONCLUSION: Increasing left lower lobe airspace disease. Ashvin Santos MD Chest CT 07/06/17 0000 Signed Impressions: Service Date/Time: June 23:41 - CONCLUSION: 1. 5.7 cm abscess in the left lower lobe. Centrally obstructing lesion and malignancy are not excluded. Nathaniel Abdul MD Abdomen/Pelvis CT 07/06/17 0000 Signed Impressions: Service Date/Time: June 23:41 - CONCLUSION: 1. No evidence of acute abdominal or pelvic process. No masses are identified. 2. Pelvic right kidney Nathaniel Abdul MD Physical Exam GENERAL: Patient is a well-nourished, well-developed male, awake and alert, not in respiratory distress. He is in pain whenever he moves on the bed SKIN: Warm and dry. No generalized rash, no ecchymoses and no evidence of embolic lesions. HEAD: Atraumatic. Normocephalic. No temporal wasting, or tenderness. EYES: Nixa conjunctiva. No petechia or hemorrhage. Pupils equal, round and reactive to light. Extraocular movements full and intact. No scleral icterus. No injection or drainage. EARS, NOSE AND THROAT: Nose without bleeding or purulent nasal discharge. No sinus tenderness. Mucous membranes pink and moist. No oral lesions noted. No exudate. No oral thrush. NECK: Trachea midline. Supple and not tender, no meningeal signs CARDIOVASCULAR: Regular rate and rhythm. No murmurs, rubs or gallops heard RESPIRATORY: Tender on palpation of his lower rib cage and whole left side of his back. Decreased breath sounds lower half of left side, with decreased vocal fremitus on L base, E to A changes in L mid lung field. Some scattered wheezing. ABDOMEN: Soft, mildly distended, with some tenderness on L side, difficulty examining L side since I think he is splinting. No rebound. Bowel sounds present and normoactive. BACK: Tender on palpation whole L side from lower rib cage, ?some discoloration on his L flank like bruise color, but no induration noted. EXTREMITIES: No clubbing, cyanosis, or edema. No joint effusion, has good ROM. No calf tenderness. Well perfused and warm. NEUROLOGICAL: Awake and alert. Cranial nerves grossly intact. Motor grossly within normal limits. PSYCHIATRIC: Normal affect, calm and cooperative. LINE: No evidence of infection Assessment & Plan Remarks Sepsis due to pulmonary infection - has fever, leukocytosis, tachycardia,. dyspnea Cavitary pneumonia - ?CAP, now cavitary due to his ?aspiration, has been having N/V Pain in L flank - CT A/P negative, probably referred due to PNA RECOMMENDATION Continue Cefepime IV Continue Vancomycin IV DC Zithromax Continue Flagyl Negative Legionella and Pneumococcal Ag Follow C/S: sputum and blood culture Adjust Abx once C/S available Bronch planned [per notes. Will follow prn over the weekend. If any change in condition please call sooner. to resume care on Monday07/10/17. Daniela Weiner MD Jul 08, 2017 15:18
[2017-07-08] MEDS ORDERED: IBUPROFEN 200 MG TAB PO PRN (17:15)
[2017-07-08] MEDS: ACETAMINOPHEN/HYDROcodone 325 MG/5 MG TAB PO PRN (21:44)
[2017-07-09] VITALS (8 sets, daily range): BP systolic 131–143; BP diastolic 82–94; PULSE 92–111; RESP 20–22; TEMP 97.6–101.6; O2SAT 94–100
[2017-07-09] MEDS: VANCOMYCIN INJ 1,250 MG in SODIUM CHLOR 0.9% 250 ML INJ 250 ML IV SCH ×3 (00:01→17:32)
[2017-07-09] MEDS: ACETAMINOPHEN 325 MG TAB PO PRN ×2 (00:01→17:32)
[2017-07-09] MEDS: metroNIDAZOLE 500 MG TAB PO SCH ×3 (01:45→17:32)
[2017-07-09] MEDS: KETOROLAC TROMETHAMINE 30 MG/ML (IVP) VIAL IV PUSH PRN ×2 (01:45→17:33)
[2017-07-09 06:19] LABS: AUTOMATED NEUTROPHIL # 12.8 TH/MM3 (1.8-7.7); BASOPHIL # 0.1 TH/MM3 (0-0.2); BASOPHIL % 0.4 % (0.0-2.0); EOSINOPHIL # 0.1 TH/MM3 (0-0.4); EOSINOPHIL % 0.3 % (0.0-4.0); HEMATOCRIT 36.8 % (39.0-51.0); LYMPHOCYTE # 1.9 TH/MM3 (1.0-4.8); MEAN CELL VOLUME 91.5 FL (80.0-100.0); MEAN CORPUSCULAR HEMOGLOBIN 30.3 PG (27.0-34.0); MEAN CORPUSCULAR HGB CONC 33.2 % (32.0-36.0); NEUT % 75.3 % (16.0-70.0); PLATELET COUNT 321 TH/MM3 (150-450); RED BLOOD COUNT 4.03 MIL/MM3 (4.50-5.90); RED CELL DISTRIBUTION WIDTH 13.2 % (11.6-17.2); WHITE BLOOD COUNT 17.1 TH/MM3 (4.0-11.0)
[2017-07-09 06:24] LABS: HEMO FLAGS AUTO DIFF
[2017-07-09 06:46] LABS: BICARBONATE 26.5 MEQ/L (21.0-32.0); POTASSIUM 3.5 MEQ/L (3.5-5.1)
[2017-07-09] MEDS: RESP: ALBUTEROL 2.5 MG/IPRATROPIUM 0.5 MG NEB (SCH) NEB ×5 (08:35→20:00)
[2017-07-09 08:39] LABS: NEUTROPHIL # MANUAL DIFF 14.2 TH/MM3 (1.8-7.7); PLATELET ESTIMATE SMEAR NORMAL (NORMAL); PLATELET MORPHOLOGY NORMAL (NORMAL); POLYS (SEG NEUTROPHILS) 83 % (16-70); SCAN/DIFF FINAL DIFF MANUAL; WBC DIFF SAMPLE 100
--- NOTE | 2017-07-09 08:46 | HHI.PR ---
Subjective Remarks With sharp chest pain last night. Has chest pain with inspiration at times. With spikes of fevers and chills. Says Percocet is not helping for pain. No nausea vomiting diarrhea or constipation. Objective Vitals Vital Signs Date Time Temp Pulse Resp B/P (MAP) Pulse Ox O2 Delivery O2 Flow Rate FiO2 07/09/17 08:38 97 Nasal Cannula 3.00 07/09/17 04:00 98.6 92 20 137/82 (100) 100 07/08/17 23:31 100.9 114 22 156/85 (108) 99 07/08/17 20:43 96 Nasal Cannula 3.00 07/08/17 20:43 112 07/08/17 20:35 100.5 114 18 130/81 (97) 96 07/08/17 16:00 101.7 110 18 125/85 (98) 96 07/08/17 14:54 97 Nasal Cannula 3.00 07/08/17 13:03 112 07/08/17 12:00 100.0 103 18 155/86 (109) 95 07/08/17 09:26 97 Nasal Cannula 3.00 I/O 07/08/17 07/08/17 07/08/17 07/09/17 07/09/17 07/09/17 07:00 15:00 23:00 07:00 15:00 23:00 Intake Total 502.5 ml 2076 ml 1300 ml 1742.5 ml Output Total 600 ml 800 ml Balance 502.5 ml 2076 ml 700 ml 942.5 ml Intake Oral 240 ml 1200 ml 480 ml IV Total 262.5 ml 2076 ml 100 ml 1262.5 ml Output Urine Total 600 ml 800 ml # Voids 1 2 # Bowel Movements 0 0 0 Result Diagram: 07/09/17 0540 07/09/17 0540 Imaging Last Impressions Chest X-Ray 07/08/17 0600 Signed Impressions: Service Date/Time: Saturday, July 08, 2017 08:42 - CONCLUSION: Increasing left lower lobe airspace disease. Ashvin Santos MD Chest CT 07/06/17 0000 Signed Impressions: Service Date/Time: June 23:41 - CONCLUSION: 1. 5.7 cm abscess in the left lower lobe. Centrally obstructing lesion and malignancy are not excluded. Nathaniel Abdul MD Abdomen/Pelvis CT 07/06/17 0000 Signed Impressions: Service Date/Time: June 23:41 - CONCLUSION: 1. No evidence of acute abdominal or pelvic process. No masses are identified. 2. Pelvic right kidney Nathaniel Abdul MD Objective Remarks GENERAL: Middle-aged male in no acute distress. HEENT: PERRLA, EOMI. No scleral icterus or conjunctival pallor. No lid lag or facial droop. CARDIOVASCULAR: Regular rate and rhythm. No obvious murmurs to auscultation. No chest tenderness to palpation. RESPIRATORY: No obvious rhonchi or wheezing. Clear to auscultation. Breath sounds equal bilaterally, mildly decreased at bases. GASTROINTESTINAL: Abdomen soft, non-tender, nondistended. BS normal. MUSCULOSKELETAL: Extremities without clubbing, cyanosis, or edema. No obvious deformities. NEUROLOGICAL: Awake, alert and oriented x4. No focal neurologic deficits. Moving both upper and lower extremities spontaneously. A/P Problem List: (1) Sepsis ICD Code: A41.9 - Sepsis, unspecified organism (2) PNA (pneumonia) ICD Code: J18.9 - Pneumonia, unspecified organism (3) Lung abscess ICD Code: J85.2 - Abscess of lung without pneumonia (4) Tobacco abuse ICD Code: Z72.0 - Tobacco use Assessment and Plan Sepsis: Temp 103, HR 113, WBC 22 on admission, Source-PNA/Lung Abscess. Continue Vanc/cefepime/ azithromycin. Follow Blood Cultures. Continue IV Abx per ID recommendations Plan for bronch with biopsy per pulm. PNA: CXR w/ left base pneumonia, images reviewed by me. Continue w/ IV Abx as above. DuoNeb prn. Lung Abscess: CT Chest w/ 5.7cm abscess LLL, no h/o alcohol/aspiration per patient. IV Abx, Check Sputum Cultures, consult Pulmonology/ID for further eval /recommendations. Continue abx . Plan for bronch with biopsy on Monday. Tobacco Abuse: Smokes 5packs Black & Mild/day. Ativan/NicoDerm prn if needed. DVT Prophylaxis: SCD/Teds. Case management consulted for d/c planning as needed. Discussed with the patient, nurse. Discharge plan. Pending improvement. Plan for consult biopsy tomorrow Lilian Shabazz MD Jul 09, 2017 08:46
[2017-07-09] MEDS: CEFEPIME INJ 2,000 MG in SODIUM CHLORIDE 0.9% INJ 100 ML IV SCH ×2 (08:52→20:52)
[2017-07-09] MEDS: SODIUM CHLORIDE 0.9% FLUSH 10 ML FLUSH IV FLUSH SCH ×2 (08:52→20:52)
[2017-07-09] MEDS: DOCUSATE SODIUM 50 MG/SENNA 8.6 MG TAB PO SCH ×2 (08:52→20:53)
[2017-07-09] MEDS: MORPHINE SULFATE 4 MG/ML INJ IV PUSH PRN (10:10)
[2017-07-09] MEDS: RESP: ALBUTEROL 2.5 MG/IPRATROPIUM 0.5 MG NEB (PRN) NEB (10:17)
[2017-07-09] MEDS: SODIUM CHLOR 0.9% 1000 ML INJ 1,000 ML IV SCH ×2 (12:59→17:32)
[2017-07-09] MEDS: DEXT 5%-NACL 0.45% 1000 ML INJ 1,000 ML IV SCH (15:00)
--- NOTE | 2017-07-09 17:12 | HHI.PR ---
Subjective Remarks Has some pain and cough with brown expectoration. On O2 2L. Objective Vital Signs Date Time Temp Pulse Resp B/P (MAP) Pulse Ox O2 Delivery O2 Flow Rate FiO2 07/09/17 16:24 96 Nasal Cannula 3.00 07/09/17 08:38 97 Nasal Cannula 3.00 07/09/17 08:00 100.0 103 22 141/94 (110) 95 07/09/17 04:00 98.6 92 20 137/82 (100) 100 07/08/17 23:31 100.9 114 22 156/85 (108) 99 07/08/17 20:43 96 Nasal Cannula 3.00 07/08/17 20:43 112 07/08/17 20:35 100.5 114 18 130/81 (97) 96 I/O 07/08/17 07/08/17 07/08/17 07/09/17 07/09/17 07/09/17 07:00 15:00 23:00 07:00 15:00 23:00 Intake Total 502.5 ml 2076 ml 1300 ml 1742.5 ml Output Total 600 ml 800 ml Balance 502.5 ml 2076 ml 700 ml 942.5 ml Intake Oral 240 ml 1200 ml 480 ml IV Total 262.5 ml 2076 ml 100 ml 1262.5 ml Output Urine Total 600 ml 800 ml # Voids 1 2 # Bowel Movements 0 0 0 Result Diagram: 07/09/1753907/09/17 0540 Objective Remarks GENERAL: This well-built young -Iranian male who is anxious and in no distress. HEENT: Head normocephalic. Pupils are reactive. Tongue is dry. Throat is clear. Ears, no inflammation. NECK: Supple. No bruits or thyroid enlargement or lymphadenopathy. CHEST: Decreased excursions. Breath sounds markedly diminished over the left mid lower chest with occasional wheezes over the left lung field. HEART: Heart sounds are regular S1-S2. No murmur. ABDOMEN: Soft, protuberant. No Mass. Bowel sounds are active. No organomegaly. EXTREMITIES: No lesions. No edema. No calf tenderness. Reflexes are 1+ with no gross motor deficits. Cranial nerves grossly intact. SKIN: No lesions are noted. Assessment and Plan Assessment and Plan IMPRESSION 1. Left lower lobe pneumonia with lung abscess. 2. Sepsis. 3. Pleuritic chest pain. Plan : 1. Cont Antibiotics.Per ID 2. O2 3 L. 3. Will schedule bronchoscopy on monday, and risks were discussed. 4. IS qid, bedside 5. Tramadol 50 mg q6h prn, Pain. Porsha West MD Jul 09, 2017 17:12
[2017-07-09] MEDS ORDERED: traMADol HCL 50 MG TAB PO PRN (17:15)
[2017-07-10] VITALS (13 sets, daily range): BP systolic 114–155; BP diastolic 63–83; PULSE 86–115; RESP 17–21; TEMP 96.4–101.2; O2SAT 93–97
[2017-07-10] MEDS: MORPHINE SULFATE 4 MG/ML INJ IV PUSH PRN ×2 (00:11→07:50)
[2017-07-10] MEDS ORDERED: PHARMACY ORDERED LAB ONE (01:45)
[2017-07-10] MEDS: VANCOMYCIN INJ 1,250 MG in SODIUM CHLOR 0.9% 250 ML INJ 250 ML IV SCH (02:13)
[2017-07-10] MEDS: metroNIDAZOLE 500 MG TAB PO SCH ×3 (02:18→18:44)
[2017-07-10] MEDS: SODIUM CHLORIDE 0.9% FLUSH 10 ML FLUSH IV FLUSH SCH ×2 (07:38→19:51)
[2017-07-10] MEDS: DOCUSATE SODIUM 50 MG/SENNA 8.6 MG TAB PO SCH ×2 (07:38→19:59)
[2017-07-10] MEDS: SODIUM CHLOR 0.9% 1000 ML INJ 1,000 ML IV SCH ×2 (07:38→13:31)
[2017-07-10] MEDS: CEFEPIME INJ 2,000 MG in SODIUM CHLORIDE 0.9% INJ 100 ML IV SCH ×2 (07:43→19:51)
[2017-07-10] MEDS: RESP: ALBUTEROL 2.5 MG/IPRATROPIUM 0.5 MG NEB (SCH) NEB ×4 (07:46→20:00)
[2017-07-10] MEDS: KETOROLAC TROMETHAMINE 30 MG/ML (IVP) VIAL IV PUSH PRN ×3 (07:53→18:47)
[2017-07-10] MEDS: VANCOMYCIN INJ 1,650 MG in SODIUM CHLORID 0.9% 500 ML INJ 500 ML IV SCH ×2 (10:02→19:50)
[2017-07-10] MEDS ORDERED: SODIUM CHLORIDE 0.9% 20 ML VIAL ONE (11:00)
[2017-07-10] MEDS ORDERED: LIDOCAINE HCL 2% 50 ML VIAL ONE (11:00)
[2017-07-10] MEDS ORDERED: EPINEPHrine HCL (1:1000) 1 MG/ML VIAL ONE (11:01)
[2017-07-10] MEDS ORDERED: POVIDONE IODINE 5% (ANTISEPSIS KIT) 4 APPLICATIONS EACH NARE PRN (11:30)
[2017-07-10] MEDS ORDERED: SODIUM CHLORID 0.9% 500 ML IV PRN (11:30)
[2017-07-10] MEDS ORDERED: INSULIN HUMAN REGULAR 1,000 UNITS/10 ML VIAL SQ PRN (11:30)
[2017-07-10] MEDS ORDERED: LACTATED RINGER'S 1000 ML IV PRN (11:30)
[2017-07-10] MEDS ORDERED: METOPROLOL TARTRATE 25 MG TAB PO PRN (11:30)
[2017-07-10] MEDS ORDERED: CHLORHEXIDINE GLUCONATE 2 % 1 PACK (2 CLOTHS) TOPICAL PRN (11:30)
[2017-07-10] MEDS ORDERED: RESP: ALBUTEROL 2.5 MG/3 ML NEB (PRN) NEB (12:30)
--- NOTE | 2017-07-10 12:54 | MR ---
cc: DERIK WEST DATE 07/10/2017 PROCEDURE Fiberoptic bronchoscopy with biopsy, brushings and washings. PREOPERATIVE DIAGNOSIS Left lower lobe lung mass with possible obstructive pneumonitis. POSTOPERATIVE DIAGNOSIS Left lower lobe lung abscess with no evidence of obstruction. ANESTHESIA General SURGEON P[place]ha [place] PROCEDURE AND FINDINGS The patient was informed of the bronchoscopy and potential risks including hypoxia arrhythmia, bleeding, pneumothorax, respiratory failure and after informed consent was obtained he was taken to the OR, He was intubated under general anesthesia. Following this the Olympus IT180 bronchoscope was used to visualize the bronchi. The scope was advanced via the endotracheal tube into the trachea. The trachea and saida appeared normal. The scope was then advanced into the right mainstem and upper lobe segmental bronchi. These bronchi demonstrated no endobronchial lesions. The scope was then advanced into the right middle and right lower lobe segmental bronchi. This bronchi demonstrated no endobronchial lesions. There were a few mucoid secretions and mild endobronchitis and the secretions were suctioned out, saline washings were done. The scope was then advanced into the left mainstem and left upper lobe segmental bronchi. These bronchi demonstrated mild endobronchitis with mucosal edema and mucoid secretions. These were suctioned out and saline washings were done. Next the scope was advanced in the left lower lobe segmental bronchi. These bronchi demonstrated mucosal edema and the posterior basilar segmental bronchi demonstrated moderate endobronchitis with ridging and narrowing of the lumen with mucosal edema. No endobronchial mass was seen. There was no evidence of obstruction. Brushings were done from here for micro and cytology and biopsies were done from here as well with minimal bleeding observed, controlled with saline washings. Saline lavage was then carried out in the left lower lobe and the procedure was then terminated. The patient tolerated the procedure well and will be placed on oxygen following the procedure. MD LUIS FERNANDO Cook/DAVID /12:25 PM /12:50 PM
[2017-07-10] MEDS ORDERED: DO NOT ADM ANY ANTICOAGULANT DRUGS PRN (13:45)
--- NOTE | 2017-07-10 14:01 | RADRPT ---
EXAM DATE/TIME: 07/10/2017 12:52 [place] COMPARISON: CHEST SINGLE AP, July 06, 2017, 10:03. INDICATIONS : Rule out pneumothorax. Post bronchoscopy. MEDICAL HISTORY : None. SURGICAL HISTORY : None. ENCOUNTER: Initial ACUITY: 1 day PAIN SCORE: 0/10 LOCATION: Bilateral chest FINDINGS: Small left pleural effusion with consolidative changes left base. The right lung is clear. The hear t is enlarged without failure. CONCLUSION: Negative for pneumothorax. Minimal consolidative changes left base with small left pleural effusion. Jermain Prieto MD FACR on July 10, 2017 at 13:58 Board Certified Radiologist. This report was verified electronically.
--- NOTE | 2017-07-10 14:06 | HHI.PR ---
Subjective Remarks Patient with pain seen after bronch with biopsy. No n/v/d/c. Coughing more no blood in it sputum. Still with chills and fevers. Pain is fairly controlled. Satting well on 3L NC. Objective Vitals Vital Signs Date Time Temp Pulse Resp B/P (MAP) Pulse Ox O2 Delivery O2 Flow Rate FiO2 07/10/17 13:26 107 07/10/17 13:00 99.9 114 24 137/70 (92) 95 Nasal Cannula 3 07/10/17 12:45 118 20 141/66 (91) 94 Nasal Cannula 3 07/10/17 12:33 99.9 120 24 128/60 (82) 93 Simple Mask 6 07/10/17 09:07 91 07/10/17 08:00 100.9 106 17 142/82 (102) 96 07/10/17 07:50 96 Nasal Cannula 2.00 07/10/17 07:48 96 Nasal Cannula 3.00 07/10/17 06:39 102 07/10/17 04:40 101.2 107 21 141/83 (102) 93 07/10/17 00:30 97.9 109 21 155/78 (103) 97 07/09/17 20:35 97.6 106 21 131/84 (100) 96 07/09/17 19:50 Nasal Cannula 3.00 07/09/17 19:15 100 07/09/17 16:24 96 Nasal Cannula 3.00 07/09/17 16:00 101.6 95 22 131/83 (99) 94 I/O 07/09/17 07/09/17 07/09/17 07/10/17 07/10/17 07/10/17 07:00 15:00 23:00 07:00 15:00 23:00 Intake Total 1742.5 ml 340 ml 0 ml 674 ml Output Total 800 ml 2150 ml 750 ml 1050 ml 5 ml Balance 942.5 ml -2150 ml -410 ml -1050 ml 669 ml Intake Oral 480 ml 240 ml 0 ml IV Total 1262.5 ml 100 ml 174 ml Other 500 ml Output Urine Total 800 ml 2150 ml 750 ml 1050 ml Estimated Blood Loss 5 ml # Voids 4 # Bowel Movements 0 0 1 1 Result Diagram: 07/09/1740 07/09/1740 Imaging Last Impressions Chest X-Ray 07/10/17 0000 Signed Impressions: Service Date/Time: Monday, July 10, 2017 12:52 - CONCLUSION: Negative for pneumothorax. Minimal consolidative changes left base with small left pleural effusion. Jermain Prieto MD FACR Chest CT 07/06/17 0000 Signed Impressions: Service Date/Time: June 23:41 - CONCLUSION: 1. 5.7 cm abscess in the left lower lobe. Centrally obstructing lesion and malignancy are not excluded. Nathaniel Abdul MD Abdomen/Pelvis CT 07/06/17 0000 Signed Impressions: Service Date/Time: June 23:41 - CONCLUSION: 1. No evidence of acute abdominal or pelvic process. No masses are identified. 2. Pelvic right kidney Nathaniel Abdul MD Objective Remarks GENERAL: Middle-aged male in no acute distress. HEENT: PERRLA, EOMI. No scleral icterus or conjunctival pallor. No lid lag or facial droop. CARDIOVASCULAR: Regular rate and rhythm. No obvious murmurs to auscultation. No chest tenderness to palpation. RESPIRATORY: No obvious rhonchi or wheezing. Clear to auscultation. Breath sounds equal bilaterally, mildly decreased at bases. GASTROINTESTINAL: Abdomen soft, non-tender, nondistended. BS normal. MUSCULOSKELETAL: Extremities without clubbing, cyanosis, or edema. No obvious deformities. NEUROLOGICAL: Awake, alert and oriented x4. No focal neurologic deficits. Moving both upper and lower extremities spontaneously. A/P Problem List: (1) Sepsis ICD Code: A41.9 - Sepsis, unspecified organism (2) PNA (pneumonia) ICD Code: J18.9 - Pneumonia, unspecified organism (3) Lung abscess ICD Code: J85.2 - Abscess of lung without pneumonia (4) Tobacco abuse ICD Code: Z72.0 - Tobacco use Assessment and Plan Sepsis: Temp 103, HR 113, WBC 22 on admission, Source-PNA/Lung Abscess. Continue Vanc/cefepime/ azithromycin. Follow Blood Cultures. Continue IV Abx per ID recommendations S/p bronch with biopsy per pulm. PNA: CXR w/ left base pneumonia, images reviewed by me. Continue w/ IV Abx as above. DuoNeb prn. Lung Abscess: CT Chest w/ 5.7cm abscess LLL, no h/o alcohol/aspiration per patient. IV Abx, Check Sputum Cultures, consult Pulmonology/ID for further eval /recommendations. Continue abx . Plan for bronch with biopsy on Monday. Tobacco Abuse: Smokes 5packs Black & Mild/day. Ativan/NicoDerm prn if needed. DVT Prophylaxis: SCD/Teds. Case management consulted for d/c planning as needed. Discussed with the patient, nurse. Discharge plan. Pending improvement and clearance by consultants. S/p bronchoscopy with biopsy Lilian Shabazz MD Jul 10, 2017 14:06
--- NOTE | 2017-07-10 16:19 | HHI.IDPN ---
Subjective Subjective Remarks Patient is a 31-year-old male, presented to the hospital complaining of severe left-sided flank and back pain. Patient stated he started getting sick about for 5 days prior to admission. He just didn't have any appetite, and the food didn't taste really good. He just started taking some liquids, and about 3 days prior to admission, he started having vomiting. Patient also was having some cough, felt feverish, was having sweats. He started experiencing pain and he described it as pain in his left kidney. He pointed out in the left flank, and since yesterday the pain started going to the left lower rib cage laterally going anteriorly. His symptoms were not improving, so he presented to the emergency room on June 05. He was diagnosed to have pneumonia, and he had sepsis criteria for admission. He received Rocephin and Zithromax. Admission was advised, however the patient refused admission, and he was given a prescription for Levaquin. Later on June 05, at home, he apparently started coughing up some blood, and started having significant pain on his left flank and back area. Ambulance was called, and the patient apparently had a fever of 103. Patient never took his temperature at home. He felt feverish though and was having sweats. He also was having some shortness of breath due to the pain. He has been constipated which he attributes to not being able to eat. He states he's been around some people who have been sick, there has been a lot of people sick. No exposure to any sick children. He has no pets. Denies having any syncopal episode. No ear problem. Denies urinary complaints. On presentation, patient has been febrile. His white count is greater than 20, 000. CT of the chest showing left lower lobe pneumonia with multiple cavitation. At the time my exam patient complaining of significant pain on his left side even with very minute movement. He is currently on cefepime, and vancomycin. Infectious disease consultation has been requested to evaluate the patient. Notes reviewed Still with fevers but not as high and not as frequent Had bronch today Still with CP Good sats on nasal O2 First sputum with normal yoan CXR stable WBC improving Legionella and pneumococcal antigen negative Antibiotics Cefepime IV Vanco IV Flagyl Lines Line sites with no e.o infection Past Medical History Past Medical History None Past Surgical History Hernia repair Allergies: Coded Allergies: No Known Allergies (Unverified Allergy, Unknown, 07/07/17) Objective . Vital Signs Date Time Temp Pulse Resp B/P (MAP) Pulse Ox O2 Delivery O2 Flow Rate FiO2 07/10/17 14:30 98 07/10/17 13:26 107 07/10/17 13:00 99.9 114 24 137/70 (92) 95 Nasal Cannula 3 07/10/17 12:45 118 20 141/66 (91) 94 Nasal Cannula 3 07/10/17 12:33 99.9 120 24 128/60 (82) 93 Simple Mask 6 07/10/17 09:07 91 07/10/17 08:00 100.9 106 17 142/82 (102) 96 07/10/17 07:50 96 Nasal Cannula 2.00 07/10/17 07:48 96 Nasal Cannula 3.00 07/10/17 06:39 102 07/10/17 04:40 101.2 107 21 141/83 (102) 93 07/10/17 00:30 97.9 109 21 155/78 (103) 97 07/09/17 20:35 97.6 106 21 131/84 (100) 96 07/09/17 19:50 Nasal Cannula 3.00 07/09/17 19:15 100 07/09/17 16:24 96 Nasal Cannula 3.00 07/10/17 07/10/17 07/11/17 15:00 23:00 07:00 Intake Total 674 ml Output Total 5 ml Balance 669 ml IV Total 174 ml Other 500 ml Estimated Blood Loss 5 ml # Voids 2 # Bowel Movements 1 . Laboratory Tests Test 07/09/17 05:40 White Blood Count 17.1 TH/MM3 Red Blood Count 4.03 MIL/MM3 Hemoglobin 12.2 GM/DL Hematocrit 36.8 % Mean Corpuscular Volume 91.5 FL Mean Corpuscular Hemoglobin 30.3 PG Mean Corpuscular Hemoglobin Concent 33.2 % Red Cell Distribution Width 13.2 % Platelet Count 321 TH/MM3 Mean Platelet Volume 8.1 FL Neutrophils (%) (Auto) 75.3 % Lymphocytes (%) (Auto) 11.0 % Monocytes (%) (Auto) 13.0 % Eosinophils (%) (Auto) 0.3 % Basophils (%) (Auto) 0.4 % Neutrophils # (Auto) 12.8 TH/MM3 Lymphocytes # (Auto) 1.9 TH/MM3 Monocytes # (Auto) 2.2 TH/MM3 Eosinophils # (Auto) 0.1 TH/MM3 Basophils # (Auto) 0.1 TH/MM3 CBC Comment AUTO DIFF Differential Total Cells Counted 100 Neutrophils % (Manual) 83 % Lymphocytes % 8 % Monocytes % 9 % Neutrophils # (Manual) 14.2 TH/MM3 Differential Comment FINAL DIFF MANUAL Platelet Estimate NORMAL Platelet Morphology Comment NORMAL Red Cell Morphology Comment NORMAL Laboratory Tests Test 07/08/17 20:42 07/09/17 05:40 Lactic Acid Level 1.5 mmol/L Blood Urea Nitrogen 7 MG/DL Creatinine 0.72 MG/DL Random Glucose 120 MG/DL Calcium Level 8.3 MG/DL Sodium Level 141 MEQ/L Potassium Level 3.5 MEQ/L Chloride Level 106 MEQ/L Carbon Dioxide Level 26.5 MEQ/L Anion Gap 9 MEQ/L Estimat Glomerular Filtration Rate 154 ML/MIN Microbiology Date/Time Source Procedure Growth Status 07/10/17 12:08 Bronchial Brushings Left Lower Lobe Bronchial Aspirate Culture Pending Received 07/10/17 12:08 Bronchial Brushings Left Lower Lobe Fungal Smear Pending Received 07/10/17 12:08 Bronchial Brushings Left Lower Lobe Fungal Culture Pending Received 07/10/17 12:08 Bronchial Washings Left Lower Lobe Gram Stain Pending Received 07/10/17 12:08 Bronchial Washings Left Lower Lobe Bronchial Culture Pending Received 07/10/17 12:08 Bronchial Washings Left Lower Lobe Fungal Smear Pending Received 07/10/17 12:08 Bronchial Washings Left Lower Lobe Fungal Culture Pending Received 07/10/17 12:08 Bronchial Washings Left Lower Lobe Acid Fast Stain Pending Received 07/10/17 12:08 Bronchial Washings Left Lower Lobe Mycobacterial Culture Pending Received 07/10/17 12:08 Bronchial Brushings Left Lower Lobe Acid Fast Stain Pending Received 07/10/17 12:08 Bronchial Brushings Left Lower Lobe Mycobacterial Culture Pending Received 07/10/17 12:08 Bronchial Washings Left Lower Lobe Gram Stain Pending Received 07/10/17 12:08 Bronchial Washings Left Lower Lobe Bronchial Culture Pending Received 07/07/17 17:30 Sputum Expectorated Sputum Gram Stain - Final Complete 07/07/17 17:30 Sputum Expectorated Sputum Sputum Culture - Final HEAVY GROWTH NORMAL RESPIRATORY YOAN Complete 07/07/17 21:15 Urine Clean Catch Legionella Antigen - Final PRESUMPTIVE NEGATIVE FOR LEGIONELLA P... Complete 07/07/17 21:15 Urine Clean Catch Streptococcus pneumoniae Antigen (M - Final PRESUMPTIVE NEGATIVE FOR STREPTOCOCCU... Complete Imaging Last Impressions Chest X-Ray 07/08/17 0600 Signed Impressions: Service Date/Time: Saturday, July 08, 2017 08:42 - CONCLUSION: Increasing left lower lobe airspace disease. Ashvin Santos MD Chest CT 07/06/17 0000 Signed Impressions: Service Date/Time: June 23:41 - CONCLUSION: 1. 5.7 cm abscess in the left lower lobe. Centrally obstructing lesion and malignancy are not excluded. Nathaniel Abdul MD Abdomen/Pelvis CT 07/06/17 0000 Signed Impressions: Service Date/Time: June 23:41 - CONCLUSION: 1. No evidence of acute abdominal or pelvic process. No masses are identified. 2. Pelvic right kidney Nathaniel Abdul MD Physical Exam GENERAL: awake and alert, not in respiratory distress. Looks comfortable SKIN: Warm and dry. No generalized rash, no ecchymoses and no evidence of embolic lesions. HEAD: Atraumatic. Normocephalic. No temporal wasting, or tenderness. EYES: [place] conjunctiva. No petechia or hemorrhage. Pupils equal, round and reactive to light. Extraocular movements full and intact. No scleral icterus. No injection or drainage. EARS, NOSE AND THROAT: Nose without bleeding or purulent nasal discharge. Mucous membranes pink and moist. No oral lesions noted. NECK: Trachea midline. Supple and not tender, no meningeal signs CARDIOVASCULAR: Regular rate and rhythm. No murmurs, rubs or gallops heard RESPIRATORY: Decreased breath sounds lower half of left side, with decreased vocal fremitus on L base, E to A changes in L mid lung field. Some scattered wheezing. ABDOMEN: Soft, mildly distended, with some tenderness on L side No rebound. Bowel sounds present and normoactive. EXTREMITIES: No clubbing, cyanosis, or edema. No joint effusion, has good ROM. No calf tenderness. Well perfused and warm. NEUROLOGICAL: Nonfocal PSYCHIATRIC: Normal affect, calm and cooperative. LINE: No evidence of infection Assessment & Plan Remarks IMPRESSION Sepsis due to pulmonary infection - has fever, leukocytosis, tachycardia,. dyspnea Cavitary pneumonia - ?CAP, now cavitary due to his ?aspiration, has been having N/V Pain in L flank - CT A/P negative, probably referred due to PNA RECOMMENDATION Continue Cefepime IV Continue Vancomycin IV Continue Flagyl Follow bronch results Monitor temps Monitor progress Will adjust Abx once bronch results available Renate Silva MD Jul 10, 2017 16:19
[2017-07-11] VITALS: BP 149/80; PULSE 109; RESP 20; TEMP 98.8; O2SAT 97
[2017-07-11] MEDS: KETOROLAC TROMETHAMINE 30 MG/ML (IVP) VIAL IV PUSH PRN ×2 (01:47→07:55)
[2017-07-11] MEDS: RESP: ALBUTEROL 2.5 MG/IPRATROPIUM 0.5 MG NEB (PRN) NEB (02:00)
[2017-07-11] MEDS: metroNIDAZOLE 500 MG TAB PO SCH ×2 (02:37→09:44)
[2017-07-11 04:00] VITALS: BP 119/71; PULSE 96; RESP 17; TEMP 99; O2SAT 94
[2017-07-11] MEDS: SODIUM CHLOR 0.9% 1000 ML INJ 1,000 ML IV SCH ×2 (05:39→09:47)
[2017-07-11 06:39] VITALS: PULSE 90
[2017-07-11 07:37] LABS: AUTOMATED NEUTROPHIL # 16.3 TH/MM3 (1.8-7.7); BASOPHIL # 0.1 TH/MM3 (0-0.2); BASOPHIL % 0.7 % (0.0-2.0); EOSINOPHIL # 0.2 TH/MM3 (0-0.4); EOSINOPHIL % 1.1 % (0.0-4.0); HEMATOCRIT 37.4 % (39.0-51.0); LYMPH % 9.3 % (9.0-44.0); MEAN CELL VOLUME 92.8 FL (80.0-100.0); MEAN CORPUSCULAR HEMOGLOBIN 30.7 PG (27.0-34.0); MEAN CORPUSCULAR HGB CONC 33.1 % (32.0-36.0); MONO % 12.9 % (0.0-8.0); PLATELET COUNT 447 TH/MM3 (150-450); RED BLOOD COUNT 4.03 MIL/MM3 (4.50-5.90); RED CELL DISTRIBUTION WIDTH 13.3 % (11.6-17.2); WHITE BLOOD COUNT 21.4 TH/MM3 (4.0-11.0)
[2017-07-11 07:40] LABS: HEMO FLAGS AUTO DIFF
[2017-07-11] MEDS: SODIUM CHLORIDE 0.9% FLUSH 10 ML FLUSH IV FLUSH SCH (07:56)
[2017-07-11] MEDS: DOCUSATE SODIUM 50 MG/SENNA 8.6 MG TAB PO SCH (07:56)
[2017-07-11 07:59] LABS: BICARBONATE 25.7 MEQ/L (21.0-32.0); POTASSIUM 3.8 MEQ/L (3.5-5.1)
[2017-07-11] MEDS: CEFEPIME INJ 2,000 MG in SODIUM CHLORIDE 0.9% INJ 100 ML IV SCH (07:59)
[2017-07-11 08:00] VITALS: BP 140/80; PULSE 100; RESP 18; TEMP 99.7; O2SAT 95
[2017-07-11] MEDS ORDERED: VANCOMYCIN INJ 1,650 MG in SODIUM CHLORID 0.9% 500 ML INJ 500 ML IV SCH (08:00)
[2017-07-11] MEDS: RESP: ALBUTEROL 2.5 MG/IPRATROPIUM 0.5 MG NEB (SCH) NEB (09:26)
[2017-07-11 09:27] VITALS: O2SAT 97
[2017-07-11 09:28] LABS: BANDS 5 % (0-6); METAMYELOCYTES 1 % (0-1); NEUTROPHIL # MANUAL DIFF 18.6 TH/MM3 (1.8-7.7); PLATELET ESTIMATE SMEAR NORMAL (NORMAL); PLATELET MORPHOLOGY NORMAL (NORMAL); POLYS (SEG NEUTROPHILS) 81 % (16-70); SCAN/DIFF FINAL DIFF MANUAL; WBC DIFF SAMPLE 100
[2017-07-11] MEDS ORDERED: PHARMACY ORDERED LAB ONE (09:45)
--- NOTE | 2017-07-11 12:22 | HHI.DS ---
Discharge Summary Admission Date Jul 07, 2017 at 00:57 Discharge Date: Jul 11, 2017 Admitting Diagnosis lung abscess (1) Sepsis ICD Code: A41.9 - Sepsis, unspecified organism (2) PNA (pneumonia) ICD Code: J18.9 - Pneumonia, unspecified organism (3) Lung abscess ICD Code: J85.2 - Abscess of lung without pneumonia (4) Tobacco abuse ICD Code: Z72.0 - Tobacco use Procedures bronchoscopy with biopsy Brief History - From Admission This is a 31-year-old male with no significant PMH who presented to the ER with complaints of SOB, cough and fever x3 days. Was seen in ER earlier on 07/06/17 for similar complaints in addition to flank pain, CXR w/ PNA, s/p Rocephin/ Zithro in ER, CT Abd/Pelvis w/ no acute findings, offered admission as pt w/ criteria for Sepsis, however LEFT AMA. Given Rx for Levaquin 500mg qd x7 days and Albuterol. Brought to the ER by EMS for worsening complaints, Temp 103. On arrival, BP 132/65, HR 1:15, O2 sat 100% on RA, Temp 102.6. WBC 22.2. Chemistry essentially unremarkable. UA negative. CT Chest 5.7 cm abscess left lower lobe, central obstructing lesion and malignancy not excluded. Patient does have a history of Tobacco Abuse. CT Abd/Pelvis w/ no acute findings. S/p Blood Cultures, Vanc/Zosyn in ER. CBC/BMP: 07/11/17 0625 07/11/17 0625 Significant Findings Laboratory Tests Test 07/08/17 20:42 07/09/17 05:40 07/10/17 01:45 07/11/17 06:25 White Blood Count 17.1 TH/MM3 (4.0-11.0) 21.4 TH/MM3 (4.0-11.0) Red Blood Count 4.03 MIL/MM3 (4.50-5.90) 4.03 MIL/MM3 (4.50-5.90) Hemoglobin 12.2 GM/DL (13.0-17.0) 12.4 GM/DL (13.0-17.0) Hematocrit 36.8 % (39.0-51.0) 37.4 % (39.0-51.0) Neutrophils (%) (Auto) 75.3 % (16.0-70.0) 76.0 % (16.0-70.0) Monocytes (%) (Auto) 13.0 % (0.0-8.0) 12.9 % (0.0-8.0) Neutrophils # (Auto) 12.8 TH/MM3 (1.8-7.7) 16.3 TH/MM3 (1.8-7.7) Monocytes # (Auto) 2.2 TH/MM3 (0-0.9) 2.8 TH/MM3 (0-0.9) Neutrophils % (Manual) 83 % (16-70) 81 % (16-70) Lymphocytes % 8 % (9-44) 6 % (9-44) Monocytes % 9 % (0-8) Neutrophils # (Manual) 14.2 TH/MM3 (1.8-7.7) 18.6 TH/MM3 (1.8-7.7) Random Glucose 120 MG/DL (74-106) Calcium Level 8.3 MG/DL (8.5-10.1) 8.3 MG/DL (8.5-10.1) Test 07/11/17 08:00 PE at Discharge GENERAL: Middle-aged male in no acute distress. HEENT: PERRLA, EOMI. No scleral icterus or conjunctival pallor. No lid lag or facial droop. CARDIOVASCULAR: Regular rate and rhythm. No obvious murmurs to auscultation. No chest tenderness to palpation. RESPIRATORY: No obvious rhonchi or wheezing. Clear to auscultation. Breath sounds equal bilaterally, mildly decreased at bases. GASTROINTESTINAL: Abdomen soft, non-tender, nondistended. BS normal. MUSCULOSKELETAL: Extremities without clubbing, cyanosis, or edema. No obvious deformities. NEUROLOGICAL: Awake, alert and oriented x4. No focal neurologic deficits. Moving both upper and lower extremities spontaneously. Pt update on day of discharge Patient is in the room undressing , and naked, using foul language threatening to leave AMA says she can't stay anymore. Has no fever ro chills at this time. No cough. pain is controlled by meds. Says he feel better and he wants to go home. He appears agitated. I asked psych to evaluate patient .Seen by Dr Vicente from psychiatry. I discussed with Dr Stapleton patient has capacity. Patient did live AMA however he did not signed the AMA paper. Hospital Course This is a 31-year-old male with no significant PMH who presented to the ER with complaints of SOB, cough and fever x3 days. Was seen in ER earlier on 07/06/17 for similar complaints in addition to flank pain, CXR w/ PNA, s/p Rocephin/ Zithro in ER, CT Abd/Pelvis w/ no acute findings, offered admission as pt w/ criteria for Sepsis, however LEFT AMA. Given Rx for Levaquin 500mg qd x7 days and Albuterol. Brought to the ER by EMS for worsening complaints, Temp 103. On arrival, BP 132/65, HR 1:15, O2 sat 100% on RA, Temp 102.6. WBC 22.2. Chemistry essentially unremarkable. UA negative. CT Chest 5.7 cm abscess left lower lobe, central obstructing lesion and malignancy not excluded. Patient does have a history of Tobacco Abuse. CT Abd/Pelvis w/ no acute findings. S/p Blood Cultures, Vanc/Zosyn in ER. ID was consulted. Patient received IV antibiotics Vanc/cefepime/ azithromycin. Also pulm was consulted and patient had bronch with biopsy. Patient is in the room undressing , and naked, using foul language threatening to leave AMA says she can't stay anymore. Has no fever ro chills at this time. No cough. pain is controlled by meds. Says he feel better and he wants to go home. He appears agitated. I asked psych to evaluate patient .Seen by Dr Vicente from psychiatry. I discussed with Dr Stapleton patient has capacity. Patient did live AMA however he did not signed the AMA paper. Sepsis: Temp 103, HR 113, WBC 22 on admission, Source-PNA/Lung Abscess. Continue Vanc/cefepime/ azithromycin. Follow Blood Cultures. Continue IV Abx per ID recommendations S/p bronch with biopsy per pulm. PNA: CXR w/ left base pneumonia, images reviewed by me. Continue w/ IV Abx as above. DuoNeb prn. Lung Abscess: CT Chest w/ 5.7cm abscess LLL, no h/o alcohol/aspiration per patient. IV Abx, Check Sputum Cultures, consult Pulmonology/ID for further eval /recommendations. Continue abx . Plan for bronch with biopsy on Monday. Tobacco Abuse: Smokes 5packs Black & Mild/day. Ativan/NicoDerm prn if needed. DVT Prophylaxis: SCD/Teds. Case management consulted for d/c planning as needed. Discussed with the patient, nurse. Discharge plan. S/p bronchoscopy with biopsy. Patien tis not cleared medically for DC Patient did live AMA on 07/11/17 Pt Condition on Discharge: Stable Discharge Disposition: Discharge Home (AMA) Discharge Time: > 30 minutes Lilian Shabazz MD Jul 11, 2017 12:22
[2017-07-11] MEDS ORDERED: VANCOMYCIN INJ 1,750 MG in SODIUM CHLORID 0.9% 500 ML INJ 500 ML IV SCH (16:00)
--- NOTE | 2017-07-12 07:35 | PD.PSY.CON ---
Provisional Diagnosis Admission Date Jul 07, 2017 at 00:57 Mcgregor I. Adjustment disorder with disturbance of conduct Mcgregor II. Unspecified personality disorder, rule out antisocial Mcgregor III. Pneumonia Mcgregor IV. Multiple incarcerations, history of violence Mcgregor V. 55 History of Present Illness Service Psychiatry Consult Requested By Medical team Reason for Consult Bizarre behavior Primary Care Physician No Primary Care Physician HPI The patient is a 31-year-old man, domiciled alone, single, no kids, self employed in "[employer] no previous psychiatric history, no previous suicidal attempts, no hospitalizations, cannabis use disorder, history of multiple incarcerations and violence, with no significant medical history, who presented to the ER with complaints of SOB, cough and fever x3 days. Was seen in ER earlier on 07/06/17 for similar complaints in addition to flank pain, CXR w/ PNA, s/p Rocephin/Zithro in ER, CT Abd/Pelvis w/ no acute findings, offered admission as pt w/ criteria for Sepsis, however LEFT AMA. Given Rx for Levaquin 500mg qd x7 days and Albuterol. Brought to the ER by EMS for worsening complaints, Temp 103. On arrival, BP 132/65, HR 1:15, O2 sat 100% on RA, Temp 102.6. WBC 22.2. Chemistry essentially unremarkable. UA negative. CT Chest 5.7 cm abscess left lower lobe, central obstructing lesion and malignancy not excluded. Patient does have a history of Tobacco Abuse. CT Abd/Pelvis w/ no acute findings. S/p Blood Cultures, Vanc/Zosyn in ER. Consulted to psychiatry due to bizarre behavior. As per nurse in charge and also as per Dr. Shabazz, patient has been talking rapidly, his room very disorganized he is requesting to be discharged AMA. On psychiatric evaluation today the patient is found in the bathroom taken a shower. Once his out his noted to crop picker his cell phone and asked to a friend to come to pick him up in the hospital. Patient is calm, cooperative, talkative. Patient says that he feels much better. Patient says that he came here because he was not feeling okay, was having difficulty breathing and high fevers, "but in the last 24 hours I am doing great". Patient says that he is willing to continue his treatment as an outpatient and continue his medications at home. 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 He denies depressive symptoms, he denies anxiety, he denies perceptual disturbances, he denies suicidal and homicidal ideation, he denies visual and auditory hallucinations. Patient is noticed to speak very fast, he is definitely oddly related, but he is logical, coherent and relevant in his conversation. No pressure speech, no paranoia, no disorganized behavior or thought processes, tangentiality, recent thoughts are elicited. He reports daily use of marijuana, he denies the use of illicit drugs and alcohol. Patient reports that he has been over 15 years in total incarcerated, he has been in and out of prison for many years. Review of Systems Constitutional: DENIES: Diaphoretic episodes, Fatigue, Fever, Weight gain, Weight loss, Chills, Dizziness, Change in appetite, Night Sweats Endocrine: DENIES: Heat/cold intolerance, Polydipsia, Polyuria, Polyphagia Eyes: DENIES: Blurred vision, Diplopia, Eye inflammation, Eye pain, Vision loss , Photosensitivity, Double Vision Ears, nose, mouth, throat: DENIES: Tinnitus, Hearing loss, Vertigo, Nasal discharge, Oral lesions, Throat pain, Hoarseness, Ear Pain, Running Nose, Epistaxis, Sinus Pain, Toothache, Odynophagia Respiratory: DENIES: Apneas, Cough, Snoring, Wheezing, Hemoptysis, Sputum production, Shortness of breath Cardiovascular: DENIES: Chest pain, Palpitations, Syncope, Dyspnea on Exertion , PND, Lower Extremity Edema, Orthopnea, Claudication Gastrointestinal: DENIES: Abdominal pain, Black stools, Bloody stools, Constipation, Diarrhea, Nausea, Vomiting, Difficulty Swallowing, Anorexia Genitourinary: DENIES: Sexual dysfunction, Urinary frequency, Urinary incontinence, Urgency, Hematuria, Dysuria, Nocturia, Penile Discharge, Testicular Pain, Testicular Swelling Musculoskeletal: DENIES: Joint pain, Muscle aches, Stiffness, Joint Swelling, Back pain, Neck pain Integumentary: DENIES: Abnormal pigmentation, Nail changes, Pruritus, Rash Hematologic/lymphatic: DENIES: Bruising, Lymphadenopathy Immunologic/allergic: DENIES: Eczema, Urticaria Neurologic: DENIES: Abnormal gait, Headache, Localized weakness, Paresthesias, Seizures, Speech Problems, Tremor, Poor Balance Psychiatric: DENIES: Anxiety, Confusion, Mood changes, Depression, Hallucinations, Agitation, Suicidal Ideation, Homicidal Ideation, Delusions Past Family Social History Coded Allergies: No Known Allergies (Unverified Allergy, Unknown, 07/07/17) Active Scripts Albuterol Sulfate (Proair Hfa) 90 Mcg Hfa.aer.ad, 2 SPRAY INH Q6HR for Shortness of Breath, #1 Prov:Dutch Abad MD 07/06/17 Discontinued Reported Medications Cephalexin (Cephalexin) 500 Mg Cap, 500 MG PO Q12H for Infection for 5 Days, # 10 CAP 0 Refills 05/13/17 Hydrocodone-Acetaminophen (Lortab) 5-325 Mg Tab, 1 TAB PO Q6H Y for PAIN, #20 TAB 0 Refills 05/13/17 Discontinued Scripts Levofloxacin (Levaquin) 500 Mg Tablet, 500 MG PO DAILY for Infection for 7 Days , #7 TAB 0 Refills Prov:Dutch Abad MD 07/06/17 Family Psych History He denies family psychiatric history Social History Patient was born and raised in [facility], he lives in [facility], single, self- employed, highest level of education is 6 grade Patient's Strengths (min. 2) Verbal communication Physical Exam Vital Signs Vital Signs Date Time Temp Pulse Resp B/P (MAP) Pulse Ox O2 Delivery O2 Flow Rate FiO2 07/11/17 09:27 97 Nasal Cannula 2.00 07/11/17 08:00 99.7 100 18 140/80 (100) Lab Results Test 07/11/17 08:00 Vancomycin Level Trough 5.4 MCG/ML Date/Time Source Procedure Growth Status 07/07/17 00:10 Blood Peripheral Aerobic Blood Culture - Preliminary NO GROWTH IN 4 DAYS Resulted 07/07/17 00:10 Blood Peripheral Anaerobic Blood Culture - Preliminary NO GROWTH IN 4 DAYS Resulted 07/10/17 12:08 Bronchial Brushings Left Lower Lobe Bronchial Aspirate Culture - Preliminary IMMATURE GROWTH - REINCUBATE Resulted 07/07/17 21:15 Urine Clean Catch Legionella Antigen - Final PRESUMPTIVE NEGATIVE FOR LEGIONELLA P... Complete 07/07/17 21:15 Urine Clean Catch Streptococcus pneumoniae Antigen (M - Final PRESUMPTIVE NEGATIVE FOR STREPTOCOCCU... Complete Mental Status Examination Appearance: Appropriate Consciousness: Alert Orientation: x4 Motor Activity: Normal gait Speech: Rapid Language: Adequate Fund of Knowledge: Adequate Attention and Concentration: Adequate Memory: Unremarkable Mood: Appropriate Affect: Appropriate Thought Process & Associations: Intact Thought Content: Appropriate Hallucination Type: None Delusion Type: None Suicidal Ideation: No Suicidal Plan: No Suicidal Intention: No Homicidal Ideation: No Homicidal Plan: No Homicidal Intention: No Insight: Adequate Judgment: Adequate Assessment & Plan Problem List: (1) Adjustment disorder with disturbance of conduct ICD Codes: F43.24 - Adjustment disorder with disturbance of conduct Assessment & Plan: On psychiatric evaluation today the patient does not present any significant, acute or concerning evidence of subjective depression, jared, psychosis or anxiety. The patient denies suicidal and homicidal ideation , he denies visual and auditory hallucinations. Logical, coherent and relevant , oriented 3, able to verbalize appreciation and understanding of his current medical condition and a clear choice of leaving AMA and continuing medical treatment as an outpatient. Case was discussed with . I do not see any psychiatric contraindication for the patient to sign AMA. His Odd behavior , irritability, defiant behavior, rapid speech is definitely no jared or psychosis, but part of character structure and temperament. Patient does not meet criteria for involuntary psychiatric admission at this moment. Psychoeducation and brief supportive psychotherapy provided. No psychotropics recommended. Assessment & Plan Estimated LOS: Camacho Minaya MD Jul 12, 2017 07:35
[2017-07-12] MEDS ORDERED: PHARMACY ORDERED LAB ONE (07:45)
== END 2017-07-11 12:55 | disposition left against medical advice (07) | DRG 871 ==
LOC: NEPC 22:22 → NEDA 07-07 00:57 → N06B 07-07 01:36
PROVIDERS: ADMIT Hospitalist; ATTEND Hospitalist
PROC: 0BDJ8ZX Extraction of Left Lower Lung Lobe, Via Natural or Artificial Opening Endoscopic, Diagnostic (ICD-10-PCS; principal; 2017-07-07)
DX: A41.9 Sepsis, unspecified organism (principal); J85.1 Abscess of lung with pneumonia; J69.0 Pneumonitis due to inhalation of food and vomit; K59.00 Constipation, unspecified; F17.210 Nicotine dependence, cigarettes, uncomplicated
CPT/HCPCS: 71010; 71020; 71250; 74176; 80048; 80053; 80202; 80307; 81001; 82150; 83605; 83690; 85007; 85025; 85027; 85610; 87015; 87040; 87070; 87071; 87102; 87116; 87205; 87206; 87449; 88305; 88309; 88312; 94640; 94664; 96361; 96374; 96375; J0171; J0692; J1885; J2270; J2543; J3370; J7030; J7040; J7050

== ENCOUNTER 2017-07-18 14:11 | Inpatient (IN) | payer MEDICARE ==
[2017-07-18] VITALS (7 sets, daily range): BP systolic 113–155; BP diastolic 59–81; PULSE 112–117; RESP 17–20; TEMP 98.1–99.2; O2SAT 94–100
[~2017-07-18] VITALS: Ht 172.7 cm; Wt 89.5 kg
[~2017-07-18 14:11] MED LIST changes: -CEPH500C PO; -HYDR-3533 PO; -LEVA500T33 PO
--- NOTE | 2017-07-18 14:36 | PD ---
HPI Chief Complaint: Medication Refill Request Time Seen by Provider: 14:33 Travel History International Travel<30 days: No Contact w/Intl Traveler<30days: No Traveled to known affect area: No History of Present Illness HPI 31-year-old Afro-H[place]ian male presents to the emergency department for "refill of an antibiotic". Patient was recently hospitalized for left lower lobe abscess with pneumonia and sepsis. AMA after IV antibiotics and bronchial washings and scrapings on July 10 leaving AMA on the . Patient is requesting just an oral antibiotic for his ongoing cough. Patient states he had hemoptysis this morning. Patient denies having a fever or pain. He has no known drug allergies. PFSH Past Medical History Asthma: Yes (CHILDHOOD) Diminished Hearing: No Past Surgical History Other Surgery: Yes (HERNIA OPERATION A CHILD) Social History Alcohol Use: No Tobacco Use: Yes (5 PACKS BLACK AND MILDS A DAY) Substance Use: Yes (MARIJUANA/DAILY) Allergies-Medications (Allergen,Severity, Reaction): Coded Allergies: No Known Allergies (Unverified Allergy, Unknown, 07/18/17) Reported Meds & Prescriptions Reported Meds & Active Scripts Active Proair Hfa (Albuterol Sulfate) 90 Mcg Hfa.aer.ad 2 [place] INH Q6HR Review of Systems Except as stated in HPI: all other systems reviewed are Neg General / Constitutional: No: Fever Eyes: No: Visual changes HENT: No: Headaches Cardiovascular: No: Chest Pain or Discomfort Respiratory: Positive: Cough, Shortness of Breath, Hemoptysis, Night Sweats, No : Pleuritic Pain Gastrointestinal: No: Abdominal Pain Genitourinary: No: Dysuria Musculoskeletal: No: Pain Skin: No Rash Neurologic: No: Weakness Psychiatric: No: Depression Endocrine: No: Polydipsia Hematologic/Lymphatic: No: Easy Bruising Physical Exam Narrative GENERAL: He appears in no acute distress. As a wheezy wet cough. SKIN: Warm and dry. Color. Normal turgor. HEAD: Atraumatic. Normocephalic. EYES: Pupils equal and round. No scleral icterus. No injection or drainage. ENT: No nasal bleeding or discharge. Mucous membranes pink and moist. Pharynx is clear. Airway is patent. No sinus tenderness. TMs are clear bilaterally. NECK: Trachea midline. Supple and nontender. CARDIOVASCULAR: Regular rate and rhythm. RESPIRATORY: No accessory muscle use. Diffuse wheezes throughout the left lower lung field. Breath sounds equal bilaterally. GASTROINTESTINAL: Abdomen soft, non-tender, nondistended. Hepatic and splenic margins not palpable. MUSCULOSKELETAL: Extremities without clubbing, cyanosis, or edema. No obvious deformities. NEUROLOGICAL: Awake and alert. No obvious cranial nerve deficits. Motor grossly within normal limits. Five out of 5 muscle strength in the arms and legs. Normal speech. PSYCHIATRIC: Appropriate mood and affect; insight and judgment normal. Data Data Last Documented VS Vital Signs Date Time Temp Pulse Resp B/P (MAP) Pulse Ox O2 Delivery O2 Flow Rate FiO2 07/18/17 14:40 Room Air 07/18/17 14:13 99.1 115 20 99 Orders Orders Complete Blood Count With Diff (07/18/17 14:39) Comprehensive Metabolic Panel (07/18/17 14:39) Iv Access Insert/Monitor (07/18/17 14:39) Ecg Monitoring (07/18/17 14:39) Oximetry (07/18/17 14:39) Sodium Chloride 0.9% Flush (Ns Flush) (07/18/17 14:45) Chest, Pa & Lat (07/18/17 14:39) Sepsis Workup Initiated (07/18/17 ) Prothrombin Time / Inr (Pt) (07/18/17 16:03) Act Partial Throm Time (Ptt) (07/18/17 16:03) Lactic Acid Sepsis Protocol (07/18/17 16:03) Magnesium (Mg) (07/18/17 16:03) Phosphorus (Po4) (07/18/17 16:03) Blood Culture (07/18/17 16:03) Piperacil-Tazo 4.5 Gm Premix (Zosyn 4.5 (07/18/17 16:03) Cefepime Inj (Maxipime Inj) (07/18/17 16:03) Azithromycin (Zithromax) (07/18/17 16:03) Albuterol-Ipratropium Neb (Duoneb Neb) (07/18/17 16:15) Sodium Chlor 0.9% 1000 Ml Inj (Ns 1000 M (07/18/17 16:03) Sodium Chlor 0.9% 1000 Ml Inj (Ns 1000 M (07/18/17 16:03) Sodium Chlor 0.9% 1000 Ml Inj (Ns 1000 M (07/18/17 16:03) Labs Laboratory Tests Test 07/18/17 14:47 White Blood Count 23.2 TH/MM3 Red Blood Count 4.77 MIL/MM3 Hemoglobin 14.0 GM/DL Hematocrit 43.0 % Mean Corpuscular Volume 90.2 FL Mean Corpuscular Hemoglobin 29.4 PG Mean Corpuscular Hemoglobin Concent 32.6 % Red Cell Distribution Width 13.1 % Platelet Count 808 TH/MM3 Mean Platelet Volume 7.1 FL Neutrophils (%) (Auto) 83.2 % Lymphocytes (%) (Auto) 8.7 % Monocytes (%) (Auto) 7.3 % Eosinophils (%) (Auto) 0.1 % Basophils (%) (Auto) 0.7 % Neutrophils # (Auto) 19.3 TH/MM3 Lymphocytes # (Auto) 2.0 TH/MM3 Monocytes # (Auto) 1.7 TH/MM3 Eosinophils # (Auto) 0.0 TH/MM3 Basophils # (Auto) 0.2 TH/MM3 CBC Comment DIFF FINAL Differential Comment Blood Urea Nitrogen 16 MG/DL Creatinine 1.09 MG/DL Random Glucose 98 MG/DL Total Protein 9.0 GM/DL Albumin 2.8 GM/DL Calcium Level 9.6 MG/DL Alkaline Phosphatase 125 U/L Aspartate Amino Transf (AST/SGOT) 24 U/L Alanine Aminotransferase (ALT/SGPT) 75 U/L Total Bilirubin 0.3 MG/DL Sodium Level 134 MEQ/L Potassium Level 4.5 MEQ/L Chloride Level 98 MEQ/L Carbon Dioxide Level 28.1 MEQ/L Anion Gap 8 MEQ/L Estimat Glomerular Filtration Rate 96 ML/MIN [facility] Medical Decision Making Medical Screen Exam Complete: Yes Emergency Medical Condition: Yes Medical Record Reviewed: Yes Differential Diagnosis Pneumonia. Pleural effusion. Lung abscess. Narrative Course Labs ordered including CBC, CMP, and chest x-ray PA and lateral. CBC comes back showing leukocytosis of 23.2, and platelets of 808 History significant for sodium 134, alkaline phosphatase is 125, protein is 9, albumin is 2.8. Had a long discussion regarding need for hospitalization based on the patient's labs and x-ray. He agrees to be admitted. Sepsis protocol is initiated, as well as IV antibiotics including Zosyn, cefepime, and oral azithromycin. DuoNeb 3 is ordered as well. Call is placed to the hospitalist and the patient is discussed with Dr. Carbajal except for patient for admission. Diagnosis Primary Impression: PNA (pneumonia) Qualified Codes: J18.1 - Lobar pneumonia, unspecified organism Admitting Information Admitting Physician Requests: Admit Condition: Stable Tyler Rosales Jul 18, 2017 14:36
[2017-07-18] MEDS ORDERED: SODIUM CHLORIDE 0.9% FLUSH 10 ML FLUSH IV FLUSH PRN ×2 (14:45→16:45)
[2017-07-18 15:17] LABS: AUTOMATED NEUTROPHIL # 19.3 TH/MM3 (1.8-7.7); BASOPHIL # 0.2 TH/MM3 (0-0.2); BASOPHIL % 0.7 % (0.0-2.0); EOSINOPHIL % 0.1 % (0.0-4.0); HEMO FLAGS DIFF FINAL; LYMPH % 8.7 % (9.0-44.0); MEAN CELL VOLUME 90.2 FL (80.0-100.0); MEAN CORPUSCULAR HEMOGLOBIN 29.4 PG (27.0-34.0); MEAN CORPUSCULAR HGB CONC 32.6 % (32.0-36.0); MONO % 7.3 % (0.0-8.0); NEUT % 83.2 % (16.0-70.0); PLATELET COUNT 808 TH/MM3 (150-450); RED BLOOD COUNT 4.77 MIL/MM3 (4.50-5.90); RED CELL DISTRIBUTION WIDTH 13.1 % (11.6-17.2); WHITE BLOOD COUNT 23.2 TH/MM3 (4.0-11.0)
[2017-07-18 15:33] LABS: ALT (GPT) 75 U/L (12-78); ANION GAP 8 MEQ/L (5-15); AST (GOT) 24 U/L (15-37); BICARBONATE 28.1 MEQ/L (21.0-32.0); BLOOD UREA NITROGEN 16 MG/DL (7-18); CHLORIDE 98 MEQ/L (98-107); GLOMERULAR FILTRATION RATE 96 ML/MIN (>89); POTASSIUM 4.5 MEQ/L (3.5-5.1); SODIUM (NA) 134 MEQ/L (136-145)
[2017-07-18 15:35] LABS: ALKALINE PHOSPHATASE 125 U/L (45-117); TOTAL BILIRUBIN ADULT 0.3 MG/DL (0.2-1.0)
--- NOTE | 2017-07-18 15:37 | RADRPT ---
EXAM DATE/TIME: 07/18/2017 15:21 [facility] COMPARISON: No previous studies available for comparison. INDICATIONS : Cough, short of breath MEDICAL HISTORY : abcess left lower lobe SURGICAL HISTORY : None. ENCOUNTER: [facility] ACUITY: 1 week PAIN SCORE: 0/10 LOCATION: Bilateral chest FINDINGS: PA and lateral views of the chest demonstrate the lungs to be symmetrically aerated without evidence of mass, or infiltrate. Moderate-sized left pleural effusion The cardiomediastinal contours are unre markable. Osseous structures are intact. CONCLUSION: Moderate-sized left pleural effusion. Edson Govea MD on July 18, 2017 at 15:34 Board Certified Radiologist. This report was verified electronically.
[2017-07-18] MEDS ORDERED: CEFEPIME INJ 2,000 MG in SODIUM CHLORIDE 0.9% INJ 100 ML IV STA (16:03)
[2017-07-18] MEDS ORDERED: SODIUM CHLOR 0.9% 1000 ML INJ 700 ML IV ONE (16:03)
[2017-07-18] MEDS ORDERED: AZITHROMYCIN 250 MG TAB PO STA (16:03)
[2017-07-18] MEDS ORDERED: SODIUM CHLOR 0.9% 1000 ML INJ 1,000 ML IV ONE ×2 (16:03)
[2017-07-18] MEDS ORDERED: PIPERACIL-TAZO 4.5 GM PREMIX 100 ML IV STA (16:03)
[2017-07-18] MEDS: RESP: ALBUTEROL 2.5 MG/IPRATROPIUM 0.5 MG NEB (SCH) INH ×3 (16:16→16:32)
[2017-07-18] MEDS ORDERED: ONDANSETRON HCL 4 MG/2 ML VIAL IVP PRN (16:45)
[2017-07-18] MEDS ORDERED: Vancomycin Consult Pharmacy 1 EA OTHER SCH (17:00)
[2017-07-18] MEDS: ACETAMINOPHEN 325 MG TAB PO PRN (17:27)
[2017-07-18 17:28] LABS: APTT (PATIENT) 38.3 SEC (24.3-30.1); INTERNATIONAL NORMALIZED RATIO 1.2 RATIO
[2017-07-18 17:32] LABS: MAGNESIUM 2.1 MG/DL (1.5-2.5)
--- NOTE | 2017-07-18 17:50 | RADRPT ---
EXAM DATE/TIME: 07/18/2017 17:11 [facility] COMPARISON: No previous studies available for comparison. INDICATIONS : Shortness of breath. MEDICAL HISTORY : Asthma. SURGICAL HISTORY : Left elbow surgery. Hernia repair. ENCOUNTER: Initial ACUITY: 1 day PAIN SCORE: 0/10 LOCATION: Left chest MEASUREMENTS: SKIN TO PARIETAL PLEURA: 3.9 cm SKIN TO MAX SAFE DEPTH: 4.8 cm ESTIMATED FLUID VOLUME: 37.4 cc FLUID COMPOSITION: Inadequate fluid FINDINGS: No marking was performed. <There is a small hypoechoic area in the pleural cavity could be complicat ed fluid but it is not very wide only measuring 2.3 x 2.5 x 8.6 cm across. He from skin to visceral p leura is 3.9 cm. From the skin to the mid part of the complex hypoechoic presumed complicated pleural effusion is 4.9 cm> CONCLUSION: There is a small pleural collection is quite hypoechoic and presumed complicated. Measurements given above. Edson Govea MD on July 18, 2017 at 17:47 Board Certified Radiologist. This report was verified electronically.
[2017-07-18] MEDS ORDERED: NICOTINE 21 MG/24 HR PATCH T-DERMAL ONE (18:15)
--- NOTE | 2017-07-18 18:16 | HHI.HP ---
HPI Service [facility] Hospitalists Primary Care Physician No Primary Care Physician Admission Diagnosis Pneumonia/Leukocytosis Diagnoses: Chief Complaint: Hemoptysis Dyspnea Cough Travel History International Travel<30 Days: No Contact w/Intl Traveler <30 Da: No Traveled to Known Affected Are: No Sepsis Criteria SIRS Criteria (2 or more): Heart rate over 90, WBC > 27931, < 4000 or > 10% bands Sepsis Criteria (SIRS+source): Infect source susp/known Criteria Outcome: Meets sepsis criteria History of Present Illness This is a 31-year-old male with past medical history significant for childhood asthma who was recently admitted 07/07/17 with sepsis secondary to pneumonia and a 5.7cm left lower lobe abscess identified by CT of the chest who was seen in consultation by pulmonary medicine and infectious disease. Patient underwent a bronchoscopy performed by Dr. Talavera 07/10/17 that failed to show any evidence of obstruction and bronchial aspirate showed only normal yoan. Blood cultures were negative. Patient was negative for Legionella and strep pneumonia. Sputum culture grew heavy normal respiratory yoan. Patient was treated with IV antibiotics however he left AGAINST MEDICAL ADVICE. Patient presents to [facility] ED today with complaints of hemoptysis for the past 2 mornings, cough and shortness of breath. He denies any chest pain. He denies any fever or chills. Patient states that he's been taking Levaquin at home that he was prescribed during her previous ED visit and states he decided to come in today because he only has 1 pill left. In the ED, chest x-rays obtained which showed a moderate left-sided pleural effusion. White count is elevated at 23.2. Chemistry panel is unremarkable. Lactic acid 1.4. Review of Systems Except as stated in HPI: all other systems reviewed are Neg Past Family Social History Past Medical History Recent hospitalization for sepsis secondary to pneumonia and left lower lobe abscess, left AMA Childhood asthma Past Surgical History Hernia repair Reported Medications Proair Hfa (Albuterol Sulfate) 90 Mcg Hfa.aer.ad 2 [place] INH Q6HR Levaquin 500mg daily x 6 days Allergies: Coded Allergies: No Known Allergies (Unverified Allergy, Unknown, 11/21/17) Active Ordered Medications Current Medications Medications (Trade) Dose Ordered Sig/Jennifer Route Start Time Stop Time Status Last Admin (NS Flush) 2 ml UNSCH PRN IV FLUSH 07/18/17 14:45 (NS Flush) 2 ml UNSCH PRN IV FLUSH 07/18/17 16:45 (NS Flush) 2 ml BID IV FLUSH 07/18/17 21:00 (Tylenol) 650 mg Q4H PRN PO 07/18/17 16:45 (Zofran Inj) 4 mg Q6H PRN IVP 07/18/17 16:45 Piperacillin Sod/ Tazobactam Sod 50 ml @ 100 mls/hr Q6H IV 07/19/17 00:00 Vancomycin HCl 1750 mg/Sodium Chloride 517.5 ml @ 250 mls/hr Q12H IV 07/18/17 18:00 Pharmacy Profile Note 0 ml @ 0 mls/hr UNSCH OTHER 07/18/17 17:00 (Lactinex) 1 tab TID PO 07/18/17 18:00 Miscellaneous Information SPECIFIC LAB TO BE AMI... ONCE ONCE .XX 07/20/17 05:45 07/20/17 05:46 (Duoneb Neb) 1 ampule Q4HR WHILE AWAKE NEB NEB 07/18/17 20:00 Family History No family medical history of lung disorder Social History Patient admits to tobacco use of 5 packs of black and mild per day. Denies any alcohol use. Reports daily marijuana use. Denies any IVDU. Physical Exam Vital Signs Vital Signs Date Time Temp Pulse Resp B/P (MAP) Pulse Ox O2 Delivery O2 Flow Rate FiO2 07/18/17 16:16 100 21 07/18/17 14:40 Room Air 07/18/17 14:13 99.1 115 20 123/74 (90) 99 Room Air Physical Exam GENERAL: This is a well-nourished, well-developed patient, in no apparent distress. He is awake and alert. Does not appear to be dyspneic with conversation. SKIN: No rashes, ecchymoses or lesions. Cool and dry. HEAD: Atraumatic. Normocephalic. No temporal or scalp tenderness. EYES: Pupils equal round and reactive. Extraocular motions intact. No scleral icterus. No injection or drainage. ENT: Nose without bleeding or purulent drainage. Throat without erythema, tonsillar hypertrophy or exudate. Uvula midline. Airway patent. NECK: Trachea midline. No lymphadenopathy. Supple, nontender, no meningeal signs. CARDIOVASCULAR: Tachycardic without murmurs, gallops, or rubs. RESPIRATORY: Markedly diminished breath sounds in both lung franco with diffuse occasional wheezes. GASTROINTESTINAL: Abdomen soft, non-tender, nondistended. No hepato-splenomegaly , or palpable masses. No guarding. MUSCULOSKELETAL: Extremities without clubbing, cyanosis, or edema. No joint tenderness, effusion, or edema noted. No calf tenderness. NEUROLOGICAL: Awake and alert. Able to move all extremities spontaneously. Motor and sensory function grossly intact. No focal neurologic findings appreciated. Normal speech. Laboratory Laboratory Tests Test 07/18/17 14:47 07/18/17 16:45 White Blood Count 23.2 Red Blood Count 4.77 Hemoglobin 14.0 Hematocrit 43.0 Mean Corpuscular Volume 90.2 Mean Corpuscular Hemoglobin 29.4 Mean Corpuscular Hemoglobin Concent 32.6 Red Cell Distribution Width 13.1 Platelet Count 808 Mean Platelet Volume 7.1 Neutrophils (%) (Auto) 83.2 Lymphocytes (%) (Auto) 8.7 Monocytes (%) (Auto) 7.3 Eosinophils (%) (Auto) 0.1 Basophils (%) (Auto) 0.7 Neutrophils # (Auto) 19.3 Lymphocytes # (Auto) 2.0 Monocytes # (Auto) 1.7 Eosinophils # (Auto) 0.0 Basophils # (Auto) 0.2 CBC Comment DIFF FINAL Differential Comment Blood Urea Nitrogen 16 Creatinine 1.09 Random Glucose 98 Total Protein 9.0 Albumin 2.8 Calcium Level 9.6 Alkaline Phosphatase 125 Aspartate Amino Transf (AST/SGOT) 24 Alanine Aminotransferase (ALT/SGPT) 75 Total Bilirubin 0.3 Sodium Level 134 Potassium Level 4.5 Chloride Level 98 Carbon Dioxide Level 28.1 Anion Gap 8 Estimat Glomerular Filtration Rate 96 Lactic Acid Level 1.4 Date/Time Source Procedure Growth Status 07/18/17 16:45 Blood Peripheral Aerobic Blood Culture Pending Received 07/18/17 16:45 Blood Peripheral Anaerobic Blood Culture Pending Received Result Diagram: 07/18/17 1447 07/18/17 1447 Imaging Last Impressions Chest X-Ray 07/18/17 1439 Signed Impressions: Service Date/Time: Tuesday, July 18, 2017 15:21 - CONCLUSION: Moderate-sized left pleural effusion. MD Swapna Ibarra VTE Risk Assessment Swapna VTE Risk Assessment: No/Low Risk (score <= 1) Tii Risk Assessment Model Point Value = 1 Point Value = 2 Point Value = 3 Point Value = 5 Age 41-60 Minor surgery BMI > 25 kg/m2 Swollen legs Varicose veins or History of unexplained or recurrent spontaneous Oral contraceptives or hormone replacement Sepsis (< 1 month) Serious lung disease, including pneumonia (< 1 month) Abnormal pulmonary function Acute myocardial infarction Congestive heart failure (< 1 month) History of inflammatory bowel disease Medical patient at bed rest Age 61-74 Arthroscopic surgery Major open surgery (> 45 min) Laparoscopic surgery (> 45 min) Malignancy Confined to bed (> 72 hours) Immobilizing plaster cast Central venous access Age >= 75 History of VTE Family history of VTE Factor V Leiden Prothrombin [id number] Lupus anticoagulant Anticardiolipin antibodies Elevated serum homocysteine Heparin-induced thrombocytopenia Other congenital or acquired thrombophilia Stroke (< 1 month) Elective arthroplasty Hip, pelvis, or leg fracture Acute spinal cord injury (< 1 month) Prophylaxis Regimen Total Risk Factor Score Risk Level Prophylaxis Regimen 0-1 Low Early ambulation 2 Moderate Order ONE of the following: *Sequential Compression Device (SCD) *Heparin 5000 units SQ BID 3-4 Higher Order ONE of the following medications: *Heparin 5000 units SQ TID *Enoxaparin/Lovenox 40 mg SQ daily (WT < 150 kg, CrCl > 30 mL/min) *Enoxaparin/Lovenox 30 mg SQ daily (WT < 150 kg, CrCl > 10-29 mL/min) *Enoxaparin/Lovenox 30 mg SQ BID (WT < 150 kg, CrCl > 30 mL/min) AND/OR *Sequential Compression Device (SCD) 5 or more Highest Order ONE of the following medications: *Heparin 5000 units SQ TID (Preferred with Epidurals) *Enoxaparin/Lovenox 40 mg SQ daily (WT < 150 kg, CrCl > 30 mL/min) *Enoxaparin/Lovenox 30 mg SQ daily (WT < 150 kg, CrCl > 10-29 mL/min) *Enoxaparin/Lovenox 30 mg SQ BID (WT < 150 kg, CrCl > 30 mL/min) AND *Sequential Compression Device (SCD) Assessment and Plan Assessment and Plan 31-year-old male with past medical history significant for childhood asthma who was recently admitted 07/07/17 with sepsis secondary to pneumonia and a 5.7cm left lower lobe abscess and left AMA and now returns to ED with complaints of hemoptysis, cough and shortness of breath. Patient meets sepsis criteria with elevated white count, tachycardia and source of left sided pleural effusion with likely underlying PNA/abscess Left-sided pleural effusion Recent admission for sepsis secondary to pneumonia and left lower lobe abscess, left AMA - Obtain chest US to evaluate size of left-sided pleural effusion. If amenable, we'll consult IR for therapeutic and diagnostic thoracentesis and send fluid studies for further evaluation - Patient given IV cefepime, Zosyn and by mouth azithromycin. Continue on IV Zosyn and vancomycin. Consult pharmacy to dose. - Consult pulmonology, appreciate assistance - Consult infectious disease, appreciate assistance - Follow up on blood culture results - Eugenia scheduled - Monitor respiratory status. Patient is currently 99% on room air - Supplemental oxygen to maintain O2 saturations above 92% - Obtain sedimentation rate, CRP, NAVNEET and RF - Continuous cardiac monitoring - Obtain echocardiogram - obtain sputum cx - Of note, during patient's last hospitalization 07/07-07/11 patient's blood culture was negative. BAL grew normal respiratory yoan, fungal smear showed no growth and cytology inconclusive for malignant cells, numerous fragments of markedly atypical bronchial cells, cannot exclude carcinoma. Biopsy of the left lower lobe lung significant for bronchial mucosa with moderate acute and chronic inflammation, no pulmonary parenchyma present. Sputum culture grew normal respiratory yoan, urine antigen negative for Legionella and strep pneumoniae. Hemoptysis - Suspect secondary to underlying pneumonia/abscess - Patient is hemodynamically stable. Hemoglobin and hematocrit within normal limits. - continue to monitor Leukocytosis - Suspect secondary to above - Obtain UA - IV antibiotics as stated above - Monitor white count Thrombocytosis - Suspect reactive - continue to monitor Ongoing tobaccoism - Discussed importance of cessation - nicotine patch ordered DVT prophylaxis - bilateral SCD/MAME hose - hold chemoprophylaxis for now due to possible IR procedure The exam, history, and the medical decision-making described in the above note were completed with the assistance of the mid-level provider. I reviewed and agree with the findings presented. I attest that I had a [id number] encounter with the patient on the same day, and personally performed and documented my assessment and findings in the medical record. Code Status FULL CODE Discussed Condition With patient, Dr. Ramos Attending Statement The services are ordered in accordance with Medicare regulations or non- Medicare payer requirements, as applicable. In the case of services not specified as inpatient-only, they are appropriately provided as inpatient services in accordance with the 2-midnight benchmark. The exam, history, and the medical decision-making described in the above note were completed with the assistance of the mid-level provider. I reviewed and agree with the findings presented. I attest that I had a [id number] encounter with the patient on the same day, and personally performed and documented my assessment and findings in the medical record. Rosalia Olivo Jul 18, 2017 18:16 Jermain Ramos DO Jul 18, 2017 18:22
[2017-07-18] MEDS: VANCOMYCIN INJ 1,750 MG in SODIUM CHLORID 0.9% 500 ML INJ 500 ML IV SCH (19:41)
[2017-07-18] MEDS: LACTOBACILLUS ACIDOPHILUS TAB PO SCH (19:47)
[2017-07-18] MEDS: SODIUM CHLORIDE 0.9% FLUSH 10 ML FLUSH IV FLUSH SCH (19:55)
[2017-07-18 21:01] LABS: BLOOD, URINE NEG (NEG); COMMENT (UR) CULT NOT INDICATED; CULTURE IF INDICATED CULT NOT INDICATED; GLUCOSE,URINE NEG (NEG); KETONE, URINE NEG (NEG); MUCUS URINE FEW /lpf (OCC); NITRITE,URINE NEG (NEG); PH, URINE 5.5 (5.0-8.5); URINE COLOR YELLOW (YELLW/STRAW)
[2017-07-18] MEDS: RESP: ALBUTEROL 2.5 MG/IPRATROPIUM 0.5 MG NEB (SCH) NEB (21:09)
[2017-07-18 22:13] LABS: HEMOGLOBIN A1a 1.2 %; HEMOGLOBIN A1b 0.8 %; HEMOGLOBIN Ao 84.8 %; HEMOGLOBIN F 1.1 %; HEMOGLOBIN LA1C 1.9 %; HEMOGLOBIN P3 3.7 %
[2017-07-18 22:13] LABS: LACTIC ACID GHOST NOT REPORTABLE; RHEUMATOID FACTOR TRIGGER LESS THAN 10.0 IU/ML (0.0-14.9)
[2017-07-18] MEDS: PIPERACIL-TAZO 3.375 GM PREMIX 50 ML IV SCH (23:16)
[2017-07-19] VITALS (8 sets, daily range): BP systolic 72–140; BP diastolic 58–86; PULSE 99–133; RESP 17–20; TEMP 98.4–100.3; O2SAT 92–98
[2017-07-19] MEDS: PIPERACIL-TAZO 3.375 GM PREMIX 50 ML IV SCH ×3 (05:00→16:59)
[2017-07-19] MEDS: VANCOMYCIN INJ 1,750 MG in SODIUM CHLORID 0.9% 500 ML INJ 500 ML IV SCH (05:01)
[2017-07-19 07:24] LABS: AUTOMATED NEUTROPHIL # 11.8 TH/MM3 (1.8-7.7); BASOPHIL # 0.2 TH/MM3 (0-0.2); EOSINOPHIL # 0.1 TH/MM3 (0-0.4); EOSINOPHIL % 0.8 % (0.0-4.0); HEMATOCRIT 36.8 % (39.0-51.0); HEMO FLAGS DIFF FINAL; LYMPH % 14.4 % (9.0-44.0); LYMPHOCYTE # 2.3 TH/MM3 (1.0-4.8); MEAN CELL VOLUME 91.1 FL (80.0-100.0); MEAN CORPUSCULAR HGB CONC 34.1 % (32.0-36.0); MONO % 9.3 % (0.0-8.0); NEUT % 74.5 % (16.0-70.0); PLATELET COUNT 635 TH/MM3 (150-450); RED BLOOD COUNT 4.04 MIL/MM3 (4.50-5.90); RED CELL DISTRIBUTION WIDTH 13.2 % (11.6-17.2); WHITE BLOOD COUNT 15.8 TH/MM3 (4.0-11.0)
[2017-07-19 07:43] LABS: ANION GAP 8 MEQ/L (5-15); AST (GOT) 18 U/L (15-37); BICARBONATE 27.5 MEQ/L (21.0-32.0); BLOOD UREA NITROGEN 10 MG/DL (7-18); CHLORIDE 103 MEQ/L (98-107); GLOMERULAR FILTRATION RATE 115 ML/MIN (>89); POTASSIUM 4.3 MEQ/L (3.5-5.1); SODIUM (NA) 138 MEQ/L (136-145)
[2017-07-19] MEDS: RESP: ALBUTEROL 2.5 MG/IPRATROPIUM 0.5 MG NEB (SCH) NEB ×4 (07:45→20:23)
[2017-07-19 07:48] LABS: ALKALINE PHOSPHATASE 93 U/L (45-117); ALT (GPT) 61 U/L (12-78); TOTAL BILIRUBIN ADULT 0.5 MG/DL (0.2-1.0)
[2017-07-19] MEDS: LACTOBACILLUS ACIDOPHILUS TAB PO SCH ×3 (08:14→17:02)
[2017-07-19] MEDS: SODIUM CHLORIDE 0.9% FLUSH 10 ML FLUSH IV FLUSH SCH ×2 (08:14→21:00)
--- NOTE | 2017-07-19 10:20 | PD.CONS ---
History of Present Illness Service Infectious disease Consult Requested By Dr Ramos Reason for Consult Evaluate patient with cavitary pneumonia Primary Care Physician No Primary Care Physician Diagnoses: History of Present Illness Patient seen and examined. Records reviewed. Patient is a 31-year-old male, was recently hospitalized around July 07, he presented with severe left-sided flank and back pain. During that evaluation he was found to have pneumonia, and CT of the chest shows left lower lobe pneumonia with multiple cavitation. His pain improved, and he underwent bronchoscopy which did not show any evidence of endobronchial lesions. The bronchoscopy culture showed normal yoan. One of the cytology is negative for malignant cells, but the other one is showing some atypical cells and cannot exclude malignancy. Patient however signed out AGAINST MEDICAL ADVICE on July 11. Patient stated that he was doing pretty good at home, and he took Levaquin from an old prescription. Initially he was bringing up some brownish phlegm, and then it became kind of light yellow and green. On episode that he had some hemoptysis but that improved. The pain on his left side had markedly improved, but he still feels different on that side. There's been no fever or chills or sweats. He denies any nausea vomiting diarrhea or any urinary complaints. Patient presented to the emergency room because he had one Levaquin left, and would like to get a refill of his antibiotics. He did not offer any complaints, and claims that he's been feeling pretty good. Since admission he has not had any fever. His WBC however there is elevated above 20, 000. Chest x-ray shows no change in the left abnormality. Infectious disease consultation has been requested to evaluate the patient. Review of Systems Constitutional: DENIES: Fever, Chills, Change in appetite, Night Sweats Eyes: DENIES: Eye pain Ears, nose, mouth, throat: DENIES: Nasal discharge, Oral lesions, Throat pain, Ear Pain, Running Nose, Sinus Pain Respiratory: COMPLAINS OF: Cough, Hemoptysis, Sputum production, DENIES: Shortness of breath Cardiovascular: COMPLAINS OF: Chest pain, DENIES: Palpitations, Syncope, Dyspnea on Exertion Gastrointestinal: DENIES: Constipation, Diarrhea, Nausea, Vomiting, Difficulty Swallowing Genitourinary: DENIES: Urgency, Hematuria, Dysuria Musculoskeletal: DENIES: Joint pain, Muscle aches, Joint Swelling, Back pain Integumentary: DENIES: Rash Neurologic: DENIES: Headache, Localized weakness Psychiatric: DENIES: Confusion, Hallucinations Past Family Social History Allergies: Coded Allergies: No Known Allergies (Unverified Allergy, Unknown, 07/18/17) Past Medical History Recent diagnosis of cavitary pneumonia Otherwise unremarkable Past Surgical History Hernia repair Reported Medications I attest that I obtained, updated or reviewed the home and current medications. Reported Meds & Active Scripts Active Proair Hfa (Albuterol Sulfate) 90 Mcg Hfa.aer.ad 2 [place] INH Q6HR Active Ordered Medications Current Medications Medications (Trade) Dose Ordered Sig/Jennifer Route Start Time Stop Time Status Last Admin (NS Flush) 2 ml UNSCH PRN IV FLUSH 07/18/17 14:45 (NS Flush) 2 ml UNSCH PRN IV FLUSH 07/18/17 16:45 (NS Flush) 2 ml BID IV FLUSH 07/18/17 21:00 07/19/17 08:14 (Tylenol) 650 mg Q4H PRN PO 07/18/17 16:45 07/18/17 17:27 (Zofran Inj) 4 mg Q6H PRN IVP 07/18/17 16:45 07/18/17 17:27 Piperacillin Sod/ Tazobactam Sod 50 ml @ 100 mls/hr Q6H IV 07/19/17 00:00 07/19/17 05:00 (Lactinex) 1 tab TID PO 07/18/17 18:00 07/19/17 08:14 Miscellaneous Information SPECIFIC LAB TO BE AMI... ONCE ONCE .XX 07/20/17 05:45 07/20/17 05:46 (Duoneb Neb) 1 ampule Q4HR WHILE AWAKE [facility] NEB 07/18/17 20:00 07/19/17 07:45 Miscellaneous Information 1 ONCE ONCE T-DERMAL 07/19/17 18:45 07/19/17 18:46 Family History Unremarkable Social History Single, lives alone in own home From [place], moved to [place] several years ago States he is retired Negative for alcohol. Smokes 5 packs Black and Mild per day. +Marijuana. Denies IVDU Physical Exam Vital Signs Vital Signs Date Time Temp Pulse Resp B/P (MAP) Pulse Ox O2 Delivery O2 Flow Rate FiO2 07/19/17 08:00 98.4 106 18 123/66 (85) 92 07/19/17 07:47 95 21 07/19/17 04:00 98.5 99 17 72/ 97 07/19/17 00:00 98.9 108 17 118/62 (80) 96 07/18/17 22:09 97 07/18/17 20:09 116 07/18/17 20:00 98.1 112 17 113/59 (77) 96 07/18/17 17:45 99.2 117 20 155/78 (103) 94 07/18/17 17:41 108 22 138/81 (100) 96 07/18/17 16:16 100 21 07/18/17 14:40 Room Air 07/18/17 14:13 99.1 115 20 123/74 (90) 99 Room Air Physical Exam GENERAL: Patient is a well-nourished, well-developed male, awake and alert, not in respiratory distress. SKIN: Warm and dry. No generalized rash, no ecchymoses and no evidence of embolic lesions. HEAD: Atraumatic. Normocephalic. No temporal wasting, or tenderness. EYES: [place] conjunctiva. No petechia or hemorrhage. Pupils equal, round and reactive to light. Extraocular movements full and intact. No scleral icterus. No injection or drainage. EARS, NOSE AND THROAT: Nose without bleeding or purulent nasal discharge. No sinus tenderness. Mucous membranes pink and moist. No oral lesions noted. No exudate. No oral thrush. NECK: Trachea midline. Supple and not tender, no meningeal signs CARDIOVASCULAR: Regular rate and rhythm. No murmurs, rubs or gallops heard RESPIRATORY: Decreased breath sounds lower half of left side, with decreased vocal fremitus on L base, E to A changes in L mid lung field. No wheezing or rhonchi. ABDOMEN: Soft, mildly distended, with some tenderness on L side, difficulty examining L side since I think he is splinting. No rebound. Bowel sounds present and normoactive. BACK: NO tenderness in spine or CVA EXTREMITIES: No clubbing, cyanosis, or edema. No joint effusion, has good ROM. No calf tenderness. Well perfused and warm. NEUROLOGICAL: Awake and alert. Cranial nerves grossly intact. Motor grossly within normal limits. PSYCHIATRIC: Normal affect, calm and cooperative. LINE: No evidence of infection Laboratory Laboratory Tests Test 07/18/17 14:47 07/18/17 16:45 07/18/17 19:44 07/18/17 19:55 White Blood Count 23.2 Red Blood Count 4.77 Hemoglobin 14.0 Hematocrit 43.0 Mean Corpuscular Volume 90.2 Mean Corpuscular Hemoglobin 29.4 Mean Corpuscular Hemoglobin Concent 32.6 Red Cell Distribution Width 13.1 Platelet Count 808 Mean Platelet Volume 7.1 Neutrophils (%) (Auto) 83.2 Lymphocytes (%) (Auto) 8.7 Monocytes (%) (Auto) 7.3 Eosinophils (%) (Auto) 0.1 Basophils (%) (Auto) 0.7 Neutrophils # (Auto) 19.3 Lymphocytes # (Auto) 2.0 Monocytes # (Auto) 1.7 Eosinophils # (Auto) 0.0 Basophils # (Auto) 0.2 CBC Comment DIFF FINAL Differential Comment Blood Urea Nitrogen 16 Creatinine 1.09 Random Glucose 98 Total Protein 9.0 Albumin 2.8 Calcium Level 9.6 Alkaline Phosphatase 125 Aspartate Amino Transf (AST/SGOT) 24 Alanine Aminotransferase (ALT/SGPT) 75 Total Bilirubin 0.3 Sodium Level 134 Potassium Level 4.5 Chloride Level 98 Carbon Dioxide Level 28.1 Anion Gap 8 Estimat Glomerular Filtration Rate 96 Hemoglobin A1c 6.0 Prothrombin Time 13.0 Prothromb Time International Ratio 1.2 Activated Partial Thromboplast Time 38.3 Lactic Acid Level 1.4 2.1 Phosphorus Level 3.9 Magnesium Level 2.1 Thyroid Stimulating Hormone 3rd Gen 1.170 Urine Color YELLOW Urine Turbidity CLEAR Urine pH 5.5 Urine Specific [place] 1.021 Urine Protein TRACE Urine Glucose (UA) NEG Urine Ketones NEG Urine Occult Blood NEG Urine Nitrite NEG Urine Bilirubin NEG Urine Urobilinogen LESS THAN 2.0 Urine Leukocyte Esterase NEG Urine RBC 1 Urine WBC 1 Urine Mucus FEW Microscopic Urinalysis Comment CULT NOT INDICATED Erythrocyte Sedimentation Rate 66 C-Reactive Protein 9.80 Rheumatoid Factor Screen NEGATIVE Rheumatoid Factor Titer Test 07/19/17 00:28 07/19/17 05:55 Lactic Acid Level 0.7 White Blood Count 15.8 Red Blood Count 4.04 Hemoglobin 12.5 Hematocrit 36.8 Mean Corpuscular Volume 91.1 Mean Corpuscular Hemoglobin 31.0 Mean Corpuscular Hemoglobin Concent 34.1 Red Cell Distribution Width 13.2 Platelet Count 635 Mean Platelet Volume 7.3 Neutrophils (%) (Auto) 74.5 Lymphocytes (%) (Auto) 14.4 Monocytes (%) (Auto) 9.3 Eosinophils (%) (Auto) 0.8 Basophils (%) (Auto) 1.0 Neutrophils # (Auto) 11.8 Lymphocytes # (Auto) 2.3 Monocytes # (Auto) 1.5 Eosinophils # (Auto) 0.1 Basophils # (Auto) 0.2 CBC Comment DIFF FINAL Differential Comment Blood Urea Nitrogen 10 Creatinine 0.93 Random Glucose 99 Total Protein 7.6 Albumin 2.3 Calcium Level 9.1 Alkaline Phosphatase 93 Aspartate Amino Transf (AST/SGOT) 18 Alanine Aminotransferase (ALT/SGPT) 61 Total Bilirubin 0.5 Sodium Level 138 Potassium Level 4.3 Chloride Level 103 Carbon Dioxide Level 27.5 Anion Gap 8 Estimat Glomerular Filtration Rate 115 Date/Time Source Procedure Growth Status 07/18/17 16:45 Blood Peripheral Aerobic Blood Culture Pending Received 07/18/17 16:45 Blood Peripheral Anaerobic Blood Culture Pending Received 07/18/17 19:44 Sputum Expectorated Sputum Gram Stain - Final Resulted 07/18/17 19:44 Sputum Expectorated Sputum Sputum Culture Pending Resulted Result Diagram: 07/19/17 0555 07/19/17 0555 Imaging RADIOLOGY STUDIES/FILMS REVIEWED Chest X-Ray 07/18/17 1439 Signed Impressions: Service Date/Time: Tuesday, July 18, 2017 15:21 - CONCLUSION: Moderate-sized left pleural effusion. Edson Govea MD Chest Ultrasound 07/18/17 0000 Signed Impressions: Service Date/Time: Tuesday, July 18, 2017 17:11 - CONCLUSION: There is a small pleural collection is quite hypoechoic and presumed complicated. Measurements given above. Edson Govea MD Assessment and Plan Assessment and Plan IMPRESSION Cavitary pneumonia - bronch with normal resp yoan - cytology one with atypical cells - no endobronchial lesion - clinically feels better, though WBC still elevated RECOMMENDATION Continue Zosyn Stop Vanco Pulmonary to evaluate CT chest which will be better to evaluate the process on rge L side; his first CT did not show any effusion but a lung abscess in L lower lobe Follow CBC If clinically same and not worse, will give oral Abx Levaquin ?flagyl x 28 days Thank you for this consultation Discussed Condition With Explained plan to the patient Renate Silva MD Jul 19, 2017 10:20
--- NOTE | 2017-07-19 11:54 | HHI.PR ---
Subjective Remarks Follow-up pneumonia. States he is doing okay denies chest pain and shortness of breath. Refusing SCD. Discussed with RN Objective Vitals Vital Signs Date Time Temp Pulse Resp B/P (MAP) Pulse Ox O2 Delivery O2 Flow Rate FiO2 07/19/17 08:00 98.4 106 18 123/66 (85) 92 07/19/17 07:47 95 21 07/19/17 04:00 98.5 99 17 72/ 97 07/19/17 00:00 98.9 108 17 118/62 (80) 96 07/18/17 22:09 97 07/18/17 20:09 116 07/18/17 20:00 98.1 112 17 113/59 (77) 96 07/18/17 17:45 99.2 117 20 155/78 (103) 94 07/18/17 17:41 108 22 138/81 (100) 96 07/18/17 16:16 100 21 07/18/17 14:40 Room Air 07/18/17 14:13 99.1 115 20 123/74 (90) 99 Room Air I/O 07/18/17 07/18/17 07/18/17 07/19/17 07/19/17 07/19/17 07:00 15:00 23:00 07:00 15:00 23:00 Intake Total 1625 ml 105 ml Balance 1625 ml 105 ml Intake IV Total 1625 ml 105 ml # Voids 3 # Bowel Movements 1 Result Diagram: 07/19/17 0555 07/19/17 0555 Imaging Last Impressions Chest X-Ray 07/18/17 1439 Signed Impressions: Service Date/Time: Tuesday, July 18, 2017 15:21 - CONCLUSION: Moderate-sized left pleural effusion. Edson Govea MD Chest Ultrasound 07/18/17 0000 Signed Impressions: Service Date/Time: Tuesday, July 18, 2017 17:11 - CONCLUSION: There is a small pleural collection is quite hypoechoic and presumed complicated. Measurements given above. Edson Govea MD Objective Remarks GENERAL: This is a well-nourished, well-developed patient, in no apparent distress. SKIN: No rashes, ecchymoses or lesions. Cool and dry. CARDIOVASCULAR: Tachycardic without murmurs, gallops, or rubs. RESPIRATORY: Markedly diminished breath sounds in both lung franco with diffuse occasional wheezes. GASTROINTESTINAL: Abdomen soft, non-tender, nondistended. N No guarding. MUSCULOSKELETAL: Extremities without clubbing, cyanosis, or edema. No joint tenderness, effusion, or edema noted. No calf tenderness. NEUROLOGICAL: Awake and alert. Able to move all extremities spontaneously. Motor and sensory function grossly intact. No focal neurologic findings appreciated. Normal speech. A/P Problem List: (1) PNA (pneumonia) ICD Code: J18.9 - Pneumonia, unspecified organism Assessment and Plan 31-year-old male with past medical history significant for childhood asthma who was recently admitted 07/07/17 with sepsis secondary to pneumonia and a 5.7cm left lower lobe abscess and left AMA and now returns to ED with complaints of hemoptysis, cough and shortness of breath. Patient meets sepsis criteria with elevated white count, tachycardia and source of left sided pleural effusion with likely underlying PNA/abscess Left-sided pleural effusion Recent admission for sepsis secondary to pneumonia and left lower lobe abscess, left AMA -Ultrasound with small pleural effusion - Patient given IV cefepime, Zosyn and by mouth azithromycin. Continue on IV Zosyn and discontinue vancomycin per ID. If he remains stable will switch to vancomycin and Flagyl for 28 days - Consult pulmonology, appreciate assistance. Consider chest CT per ID - Follow up on blood culture results - Duonebs scheduled - Monitor respiratory status. Patient is currently 99% on room air - Supplemental oxygen to maintain O2 saturations above 92% - Continuous cardiac monitoring - Obtain echocardiogram - obtain sputum cx - Of note, during patient's last hospitalization 07/07-07/11 patient's blood culture was negative. BAL grew normal respiratory yoan, fungal smear showed no growth and cytology inconclusive for malignant cells, numerous fragments of markedly atypical bronchial cells, cannot exclude carcinoma. Biopsy of the left lower lobe lung significant for bronchial mucosa with moderate acute and chronic inflammation, no pulmonary parenchyma present. Sputum culture grew normal respiratory yoan, urine antigen negative for Legionella and strep pneumoniae. Hemoptysis - Suspect secondary to underlying pneumonia/abscess - Patient is hemodynamically stable. Hemoglobin and hematocrit within normal limits. - continue to monitor Leukocytosis. Improving - Suspect secondary to above -UA unremarkable - IV antibiotics as stated above - Monitor white count Thrombocytosis - Suspect reactive - continue to monitor Ongoing tobaccoism - Discussed importance of cessation - nicotine patch ordered DVT prophylaxis - bilateral SCD/MAME hose - hold chemoprophylaxis for now due to possible IR procedure Problem Qualifiers (1) PNA (pneumonia): Qualified Codes: J18.1 - Lobar pneumonia, unspecified organism Saurabh Finnegan MD Jul 19, 2017 11:54
[2017-07-19 14:11] LABS: ANA SCREEN POS (NEG)
[2017-07-19] MEDS: ACETAMINOPHEN 325 MG TAB PO PRN (17:03)
[2017-07-19] MEDS ORDERED: REMOVE OLD PATCH T-DERMAL ONE (18:45)
[2017-07-20] VITALS (8 sets, daily range): BP systolic 106–131; BP diastolic 59–72; PULSE 103–118; RESP 18–20; TEMP 97.9–99; O2SAT 93–97
[2017-07-20] MEDS: PIPERACIL-TAZO 3.375 GM PREMIX 50 ML IV SCH ×5 (00:09→23:18)
[2017-07-20] MEDS ORDERED: PHARMACY ORDERED LAB ONE (05:45)
[2017-07-20] MEDS: RESP: ALBUTEROL 2.5 MG/IPRATROPIUM 0.5 MG NEB (SCH) NEB ×4 (07:50→19:26)
[2017-07-20] MEDS: SODIUM CHLORIDE 0.9% FLUSH 10 ML FLUSH IV FLUSH SCH ×2 (10:42→21:00)
[2017-07-20] MEDS: LACTOBACILLUS ACIDOPHILUS TAB PO SCH ×3 (10:42→17:56)
--- NOTE | 2017-07-20 14:47 | ECHRPT ---
Indication: EF assessment of CHF CONCLUSIONS The left ventricular systolic function is normal with an estimated ejection fraction in the range of 55-60%. Wall thickness is normal. Normal left ventricular size. BP: 118 / 62 HR: 108 Rhythm: Sinus MEASUREMENTS (Male / Female) Normal Values Technical Quality:Good 2D ECHO LV Diastolic Diameter PLAX 4.5 cm 4.2 - 5.9 / 3.9 - 5.3 cm LV Systolic Diameter PLAX 3.4 cm IVS Diastolic Thickness 0.9 cm 0.6 - 1.0 / 0.6 - 0.9 cm LVPW Diastolic Thickness 0.9 cm 0.6 - 1.0 / 0.6 - 0.9 cm LV Relative Wall Thickness 0.4 FINDINGS LEFT VENTRICLE The left ventricular systolic function is normal with an estimated ejection fraction in the range of 55-60%. Wall thickness is normal. Normal left ventricular size. RIGHT VENTRICLE Normal right ventricular size and systolic function. LEFT ATRIUM The left atrial size is normal. RIGHT ATRIUM The right atrial size is normal. ATRIAL SEPTUM Normal atrial septal thickness without atrial level shunting by limited color doppler interrogation. AORTA The aortic root and proximal ascending aorta are normal in size on limited imaging. MITRAL VALVE Structurally normal mitral valve. No mitral valve stenosis or regurgitation. AORTIC VALVE Trileaflet aortic valve. No aortic valve stenosis or regurgitation. TRICUSPID VALVE Structurally normal tricuspid valve. No tricuspid valve stenosis or regurgitation. PULMONARY VALVE The pulmonary valve is not well visualized. VESSELS The inferior vena cava is normal in size. PERICARDIUM No pericardial effusion. Jone Acuña MD (Electronically Signed) Final Date:20 July 2017 14:46
--- NOTE | 2017-07-20 15:04 | HHI.PR ---
Subjective Remarks Follow-up pneumonia. He continues to feel better tolerating room air. Improving cough. Discussed with RN Objective Vitals Vital Signs Date Time Temp Pulse Resp B/P (MAP) Pulse Ox O2 Delivery O2 Flow Rate FiO2 07/20/17 12:00 98.9 111 20 126/72 (90) 96 07/20/17 08:00 98.7 103 20 122/64 (83) 93 07/20/17 04:39 109 07/20/17 04:00 97.9 105 18 125/66 (85) 95 07/20/17 00:00 98.4 112 18 106/59 (75) 95 07/19/17 21:30 98.9 113 18 128/58 (81) 96 07/19/17 20:25 96 07/19/17 16:00 100.3 133 20 140/86 (104) 95 I/O 07/19/17 07/19/17 07/19/17 07/20/17 07/20/17 07/20/17 07:00 15:00 23:00 07:00 15:00 23:00 Intake Total 105 ml 960 ml 770 ml Output Total 960 ml Balance 105 ml 0 ml 770 ml Intake Oral 960 ml 720 ml IV Total 105 ml 50 ml Output Urine Total 960 ml # Voids 3 1 # Bowel Movements 1 0 2 Result Diagram: 07/19/17 0555 07/19/17 0555 Imaging Last Impressions Chest X-Ray 07/18/17 1439 Signed Impressions: Service Date/Time: Tuesday, July 18, 2017 15:21 - CONCLUSION: Moderate-sized left pleural effusion. Edson Govea MD Chest Ultrasound 07/18/17 0000 Signed Impressions: Service Date/Time: Tuesday, July 18, 2017 17:11 - CONCLUSION: There is a small pleural collection is quite hypoechoic and presumed complicated. Measurements given above. Edson Govea MD Objective Remarks GENERAL: This is a well-nourished, well-developed patient, in no apparent distress. SKIN: No rashes, ecchymoses or lesions. Cool and dry. CARDIOVASCULAR: Tachycardic without murmurs, gallops, or rubs. RESPIRATORY: Markedly diminished breath sounds in both lung franco with diffuse occasional wheezes. GASTROINTESTINAL: Abdomen soft, non-tender, nondistended. No guarding. MUSCULOSKELETAL: Extremities without clubbing, cyanosis, or edema. No joint tenderness, effusion, or edema noted. No calf tenderness. NEUROLOGICAL: Awake and alert. Able to move all extremities spontaneously. Motor and sensory function grossly intact. No focal neurologic findings appreciated. Normal speech. No significant change in PE from previous Procedures None A/P Problem List: (1) PNA (pneumonia) ICD Code: J18.9 - Pneumonia, unspecified organism Assessment and Plan 31-year-old male with past medical history significant for childhood asthma who was recently admitted 07/07/17 with sepsis secondary to pneumonia and a 5.7cm left lower lobe abscess and left AMA and now returns to ED with complaints of hemoptysis, cough and shortness of breath. Patient meets sepsis criteria with elevated white count, tachycardia and source of left sided pleural effusion with likely underlying PNA/abscess Left-sided pleural effusion Recent admission for sepsis secondary to pneumonia and left lower lobe abscess, left AMA -Ultrasound with small pleural effusion - Patient given IV cefepime, Zosyn and by mouth azithromycin. Continue on IV Zosyn and discontinue vancomycin per ID. If he remains stable will switch to Levaquin and Flagyl for 28 days - Consult pulmonology, appreciate assistance. Consider chest CT per ID - Follow up on blood culture results negative to date - [facility] scheduled - Monitor respiratory status. Patient is currently 99% on room air - Supplemental oxygen to maintain O2 saturations above 92% - Continuous cardiac monitoring - Obtain echocardiogram unremarkable - obtain sputum cx with normal yoan - Of note, during patient's last hospitalization 07/07-07/11 patient's blood culture was negative. BAL grew normal respiratory yoan, fungal smear showed no growth and cytology inconclusive for malignant cells, numerous fragments of markedly atypical bronchial cells, cannot exclude carcinoma. Biopsy of the left lower lobe lung significant for bronchial mucosa with moderate acute and chronic inflammation, no pulmonary parenchyma present. Sputum culture grew normal respiratory yoan, urine antigen negative for Legionella and strep pneumoniae. Hemoptysis - Suspect secondary to underlying pneumonia/abscess - Patient is hemodynamically stable. Hemoglobin and hematocrit within normal limits. - continue to monitor Leukocytosis. Improving - Suspect secondary to above - UA unremarkable - IV antibiotics as stated above - Monitor white count repeat CBC in the morning Thrombocytosis - Suspect reactive - continue to monitor Ongoing tobaccoism - Discussed importance of cessation - nicotine patch ordered DVT prophylaxis - bilateral SCD/MAME hose - hold chemoprophylaxis for now due to hemoptysis, patient is ambulatory Problem Qualifiers (1) PNA (pneumonia): Qualified Codes: J18.1 - Lobar pneumonia, unspecified organism Saurabh Finnegan MD Jul 20, 2017 15:04
[2017-07-20] MEDS ORDERED: ACETAMINOPHEN/HYDROcodone 325 MG/5 MG TAB PO ONE (23:00)
[2017-07-21] VITALS: BP 119/56; PULSE 85; RESP 16; TEMP 98.5; O2SAT 97
[2017-07-21 04:00] VITALS: BP 114/73; PULSE 79; RESP 18; TEMP 98.4; O2SAT 95
[2017-07-21] MEDS: PIPERACIL-TAZO 3.375 GM PREMIX 50 ML IV SCH ×3 (06:08→17:12)
[2017-07-21 08:00] VITALS: BP 127/69; PULSE 101; RESP 18; TEMP 99.3; O2SAT 96
[2017-07-21] MEDS: RESP: ALBUTEROL 2.5 MG/IPRATROPIUM 0.5 MG NEB (SCH) NEB ×3 (08:51→16:00)
[2017-07-21 09:08] LABS: AUTOMATED NEUTROPHIL # 12.4 TH/MM3 (1.8-7.7); BASOPHIL # 0.2 TH/MM3 (0-0.2); BASOPHIL % 1.2 % (0.0-2.0); EOSINOPHIL # 0.1 TH/MM3 (0-0.4); EOSINOPHIL % 0.8 % (0.0-4.0); HEMATOCRIT 39.3 % (39.0-51.0); HEMO FLAGS DIFF FINAL; LYMPH % 9.9 % (9.0-44.0); LYMPHOCYTE # 1.5 TH/MM3 (1.0-4.8); MEAN CELL VOLUME 90.5 FL (80.0-100.0); MEAN CORPUSCULAR HEMOGLOBIN 29.9 PG (27.0-34.0); MEAN CORPUSCULAR HGB CONC 33.1 % (32.0-36.0); MONO % 7.6 % (0.0-8.0); NEUT % 80.5 % (16.0-70.0); PLATELET COUNT 616 TH/MM3 (150-450); RED BLOOD COUNT 4.34 MIL/MM3 (4.50-5.90); RED CELL DISTRIBUTION WIDTH 13.3 % (11.6-17.2); WHITE BLOOD COUNT 15.4 TH/MM3 (4.0-11.0)
[2017-07-21] MEDS: LACTOBACILLUS ACIDOPHILUS TAB PO SCH ×3 (09:14→17:12)
[2017-07-21] MEDS: SODIUM CHLORIDE 0.9% FLUSH 10 ML FLUSH IV FLUSH SCH (09:15)
--- NOTE | 2017-07-21 10:31 | RADRPT ---
EXAM DATE/TIME: 07/21/2017 10:02 [place] COMPARISON: US CHEST LEFT, July 18, 2017, 17:11. INDICATIONS : Pleural effusion. MEDICAL HISTORY : Pneumonia. Asthma. SURGICAL HISTORY : Hernia repair. Left elbow surgery. Right middle finger surgery. ENCOUNTER: Subsequent ACUITY: 3 days PAIN SCORE: 1/10 LOCATION: Left chest MEASUREMENTS: SKIN TO PARIETAL PLEURA: 3.0 cm SKIN TO MAX SAFE DEPTH: 4.2 cm ESTIMATED FLUID VOLUME: 129 cc FLUID COMPOSITION: complex FINDINGS: No marking was performed. There is a trace complex left pleural effusion. CONCLUSION: 1. Trace complex left pleural effusion with insufficient volume for safe thoracentesis at this time. Shahriar Gutierrez MD on July 21, 2017 at 10:28 Board Certified Radiologist. This report was verified electronically.
[2017-07-21 12:00] VITALS: BP 139/77; PULSE 105; RESP 18; TEMP 98.9; O2SAT 96
--- NOTE | 2017-07-21 13:38 | HHI.PR ---
Subjective Remarks Follow-up pneumonia. He is doing okay denies hemoptysis. He wants to go home. Discussed with pulmonary, unable to do safe thoracentesis. He is concerned of possible empyema and would like to repeat chest CT. Discussed with RN Objective Vitals Vital Signs Date Time Temp Pulse Resp B/P (MAP) Pulse Ox O2 Delivery O2 Flow Rate FiO2 07/21/17 12:00 98.9 105 18 139/77 (97) 96 07/21/17 08:00 99.3 101 18 127/69 (88) 96 07/21/17 04:00 98.4 79 18 114/73 (87) 95 07/21/17 00:00 98.5 85 16 119/56 (77) 97 07/20/17 20:00 118 07/20/17 20:00 98.5 114 18 131/65 (87) 97 07/20/17 16:00 99.0 114 20 115/65 (82) 97 07/20/17 15:33 96 21 I/O 07/20/17 07/20/17 07/20/17 07/21/17 07/21/17 07/21/17 07:00 15:00 23:00 07:00 15:00 23:00 Intake Total 770 ml 1490 ml 580 ml 480 ml Balance 770 ml 1490 ml 580 ml 480 ml Intake Oral 720 ml 1440 ml 480 ml 480 ml IV Total 50 ml 50 ml 100 ml # Voids 1 3 2 # Bowel Movements 2 0 0 Result Diagram: 07/21/17 0803 07/19/17 0555 Imaging Last Impressions Chest Ultrasound 07/21/17 0000 Signed Impressions: Service Date/Time: Friday, July 21, 2017 10:02 - CONCLUSION: 1. Trace complex left pleural effusion with insufficient volume for safe thoracentesis at this time. Shahriar Gutierrez MD Chest X-Ray 07/18/17 1439 Signed Impressions: Service Date/Time: Tuesday, July 18, 2017 15:21 - CONCLUSION: Moderate-sized left pleural effusion. Edson Govea MD Objective Remarks GENERAL: This is a well-nourished, well-developed patient, in no apparent distress. SKIN: No rashes, ecchymoses or lesions. Cool and dry. CARDIOVASCULAR: Tachycardic without murmurs, gallops, or rubs. RESPIRATORY: Markedly diminished breath sounds in both lung franco with diffuse occasional wheezes. GASTROINTESTINAL: Abdomen soft, non-tender, nondistended. No guarding. MUSCULOSKELETAL: Extremities without clubbing, cyanosis, or edema. No joint tenderness, effusion, or edema noted. No calf tenderness. NEUROLOGICAL: Awake and alert. Able to move all extremities spontaneously. Motor and sensory function grossly intact. No focal neurologic findings appreciated. Normal speech. Procedures None A/P Problem List: (1) PNA (pneumonia) ICD Code: J18.9 - Pneumonia, unspecified organism Assessment and Plan 31-year-old male with past medical history significant for childhood asthma who was recently admitted 07/07/17 with sepsis secondary to pneumonia and a 5.7cm left lower lobe abscess and left AMA and now returns to ED with complaints of hemoptysis, cough and shortness of breath. Patient meets sepsis criteria with elevated white count, tachycardia and source of left sided pleural effusion with likely underlying PNA/abscess Left-sided pleural effusion Recent admission for sepsis secondary to pneumonia and left lower lobe abscess, left AMA -Ultrasound with small pleural effusion unable to do safe thoracentesis - Patient given IV cefepime, Zosyn and by mouth azithromycin. Continue on IV Zosyn and discontinue vancomycin per ID. If he remains stable will switch to Levaquin and Flagyl for 28 days - Consult pulmonology, appreciate assistance. Obtain chest CT concerning for empyema - Follow up on blood culture results negative to date. Still with leukocytosis repeat CBC in the morning - Duonebs scheduled - Monitor respiratory status. Patient is currently 99% on room air - Supplemental oxygen to maintain O2 saturations above 92% - Continuous cardiac monitoring - Obtain echocardiogram unremarkable - obtain sputum cx with normal yoan - Of note, during patient's last hospitalization 07/07-07/11 patient's blood culture was negative. BAL grew normal respiratory yoan, fungal smear showed no growth and cytology inconclusive for malignant cells, numerous fragments of markedly atypical bronchial cells, cannot exclude carcinoma. Biopsy of the left lower lobe lung significant for bronchial mucosa with moderate acute and chronic inflammation, no pulmonary parenchyma present. Sputum culture grew normal respiratory yoan, urine antigen negative for Legionella and strep pneumoniae. Hemoptysis. Improving - Suspect secondary to underlying pneumonia/abscess - Patient is hemodynamically stable. Hemoglobin and hematocrit within normal limits. - continue to monitor Leukocytosis. Improving - Suspect secondary to above - UA unremarkable - IV antibiotics as stated above - Monitor white count repeat CBC in the morning Thrombocytosis - Suspect reactive - continue to monitor Ongoing tobaccoism - Discussed importance of cessation - nicotine patch ordered DVT prophylaxis - bilateral SCD/MAME hose - hold chemoprophylaxis for now due to hemoptysis, patient is ambulatory Problem Qualifiers (1) PNA (pneumonia): Qualified Codes: J18.1 - Lobar pneumonia, unspecified organism Saurabh Finnegan MD Jul 21, 2017 13:38
[2017-07-21] MEDS ORDERED: METR-1 PO (13:41)
[2017-07-21] MEDS ORDERED: LEVA750T9 PO (13:41)
--- NOTE | 2017-07-21 13:41 | HHI.DCPOC ---
Discharge Care Plan Diagnosis: (1) PNA (pneumonia) Your Health Problems Are: Difficulty with ADL Exercise Tolerance Goals to Promote Your Health * To prevent worsening of your condition and complications * To maintain your health at the optimal level Directions to Meet Your Goals Take your medications as prescribed Follow your dietary instruction Follow activity as directed Keep your appointments as scheduled Take your immunizations and boosters as scheduled If your symptoms worsen call your PCP, if no PCP go to Urgent Care Center or Emergency Room Smoking is Dangerous to Your Health. Avoid second hand smoke Call the 24-hour hour crisis hotline for domestic abuse at Saurabh Finnegan MD Jul 21, 2017 13:41
[2017-07-21 16:00] VITALS: BP 131/68; PULSE 110; RESP 18; TEMP 99.7; O2SAT 100
--- NOTE | 2017-07-21 16:46 | PD.AMA ---
Against Medical Advice Note Discharge Disposition: Against Medical Advice Pt Condition on Discharge: Guarded AMA Statement Patient Heron Crain has decided to leave the hospital against medical advice. This patient has the capacity to refuse care and understands the risks of leaving, including permanent disability and/or , and has had an opportunity to ask questions about his condition. The patient has been informed that he may return for care at any time, and follow up has been arranged/ advised. Saurabh Finnegan MD Jul 21, 2017 16:46
--- NOTE | 2017-07-21 16:52 | HHI.DS ---
Discharge Summary Admission Date Jul 18, 2017 at 16:19 Discharge Date: Jul 21, 2017 Admitting Diagnosis Pneumonia/Leukocytosis (1) PNA (pneumonia) ICD Code: J18.9 - Pneumonia, unspecified organism Diagnosis: Principal Procedures None Brief History - From Admission This is a 31-year-old male with past medical history significant for childhood asthma who was recently admitted 07/07/17 with sepsis secondary to pneumonia and a 5.7cm left lower lobe abscess identified by CT of the chest who was seen in consultation by pulmonary medicine and infectious disease. Patient underwent a bronchoscopy performed by Dr. Talavera 07/10/17 that failed to show any evidence of obstruction and bronchial aspirate showed only normal yoan. Blood cultures were negative. Patient was negative for Legionella and strep pneumonia. Sputum culture grew heavy normal respiratory yoan. Patient was treated with IV antibiotics however he left AGAINST MEDICAL ADVICE. Patient presents to [facility] ED today with complaints of hemoptysis for the past 2 mornings, cough and shortness of breath. He denies any chest pain. He denies any fever or chills. Patient states that he's been taking Levaquin at home that he was prescribed during her previous ED visit and states he decided to come in today because he only has 1 pill left. In the ED, chest x-rays obtained which showed a moderate left-sided pleural effusion. White count is elevated at 23.2. Chemistry panel is unremarkable. Lactic acid 1.4. CBC/BMP: 07/21/17 0803 07/19/17 0555 Significant Findings Laboratory Tests Test 07/18/17 19:44 07/18/17 19:55 07/19/17 00:28 07/19/17 05:55 Urine Mucus FEW /lpf (OCC) Erythrocyte Sedimentation Rate 66 mm/hr (0-15) Lactic Acid Level 2.1 mmol/L (0.4-2.0) C-Reactive Protein 9.80 MG/DL (0.00-0.30) Anti-Nuclear Antibody Screen POS (NEG) White Blood Count 15.8 TH/MM3 (4.0-11.0) Red Blood Count 4.04 MIL/MM3 (4.50-5.90) Hemoglobin 12.5 GM/DL (13.0-17.0) Hematocrit 36.8 % (39.0-51.0) Platelet Count 635 TH/MM3 (150-450) Neutrophils (%) (Auto) 74.5 % (16.0-70.0) Monocytes (%) (Auto) 9.3 % (0.0-8.0) Neutrophils # (Auto) 11.8 TH/MM3 (1.8-7.7) Monocytes # (Auto) 1.5 TH/MM3 (0-0.9) Albumin 2.3 GM/DL (3.4-5.0) Test 07/21/17 08:03 White Blood Count 15.4 TH/MM3 (4.0-11.0) Red Blood Count 4.34 MIL/MM3 (4.50-5.90) Platelet Count 616 TH/MM3 (150-450) Neutrophils (%) (Auto) 80.5 % (16.0-70.0) Neutrophils # (Auto) 12.4 TH/MM3 (1.8-7.7) Monocytes # (Auto) 1.2 TH/MM3 (0-0.9) Imaging Last Impressions Chest Ultrasound 07/21/17 0000 Signed Impressions: Service Date/Time: Friday, July 21, 2017 10:02 - CONCLUSION: 1. Trace complex left pleural effusion with insufficient volume for safe thoracentesis at this time. Shahriar Gutierrez MD Chest X-Ray 07/18/17 1439 Signed Impressions: Service Date/Time: Tuesday, July 18, 2017 15:21 - CONCLUSION: Moderate-sized left pleural effusion. Edson Govea MD PE at Discharge GENERAL: This is a well-nourished, well-developed patient, in no apparent distress. SKIN: No rashes, ecchymoses or lesions. Cool and dry. CARDIOVASCULAR: Tachycardic without murmurs, gallops, or rubs. RESPIRATORY: Markedly diminished breath sounds in both lung franco with diffuse occasional wheezes. GASTROINTESTINAL: Abdomen soft, non-tender, nondistended. No guarding. MUSCULOSKELETAL: Extremities without clubbing, cyanosis, or edema. No joint tenderness, effusion, or edema noted. No calf tenderness. NEUROLOGICAL: Awake and alert. Able to move all extremities spontaneously. Motor and sensory function grossly intact. No focal neurologic findings appreciated. Normal speech. Hospital Course 31-year-old male with past medical history significant for childhood asthma who was recently admitted 07/07/17 with sepsis secondary to pneumonia and a 5.7cm left lower lobe abscess and left AMA and now returns to ED with complaints of hemoptysis, cough and shortness of breath. Patient meets sepsis criteria with elevated white count, tachycardia and source of left sided pleural effusion with likely underlying PNA/abscess Left-sided pleural effusion Recent admission for sepsis secondary to pneumonia and left lower lobe abscess, left AMA -Ultrasound with small pleural effusion unable to do safe thoracentesis - Patient given IV cefepime, Zosyn and by mouth azithromycin. Continue on IV Zosyn and discontinue vancomycin per ID. If he remains stable will switch to Levaquin and Flagyl for 28 days - Consult pulmonology, appreciate assistance. Obtain chest CT concerning for empyema - Follow up on blood culture results negative to date. Still with leukocytosis repeat CBC in the morning - Duonebs scheduled - Monitor respiratory status. Patient is currently 99% on room air - Supplemental oxygen to maintain O2 saturations above 92% - Continuous cardiac monitoring - Obtain echocardiogram unremarkable - obtain sputum cx with normal yoan - Of note, during patient's last hospitalization 07/07-07/11 patient's blood culture was negative. BAL grew normal respiratory yoan, fungal smear showed no growth and cytology inconclusive for malignant cells, numerous fragments of markedly atypical bronchial cells, cannot exclude carcinoma. Biopsy of the left lower lobe lung significant for bronchial mucosa with moderate acute and chronic inflammation, no pulmonary parenchyma present. Sputum culture grew normal respiratory yoan, urine antigen negative for Legionella and strep pneumoniae. Hemoptysis. Improving - Suspect secondary to underlying pneumonia/abscess - Patient is hemodynamically stable. Hemoglobin and hematocrit within normal limits. - continue to monitor Leukocytosis. Improving - Suspect secondary to above - UA unremarkable - IV antibiotics as stated above - Monitor white count repeat CBC in the morning Thrombocytosis - Suspect reactive - continue to monitor Ongoing tobaccoism - Discussed importance of cessation - nicotine patch ordered DVT prophylaxis - bilateral SCD/MAME hose - hold chemoprophylaxis for now due to hemoptysis, patient is ambulatory He left AMA after obtaining chest CT Pt Condition on Discharge: Guarded Discharge Disposition: Discharge Home (AMa) Discharge Time: > 30 minutes Saurabh Finnegan MD Jul 21, 2017 16:52
--- NOTE | 2017-07-21 17:03 | RADRPT ---
EXAM DATE/TIME: 07/21/2017 16:22 [place] COMPARISON: CT THORAX W/O CONTRAST, July 06, 2017, 23:41. INDICATIONS : Short of breath. RADIATION DOSE: 9.59 CTDIvol (mGy) MEDICAL HISTORY : None SURGICAL HISTORY : Hernia sx. ENCOUNTER: Initial ACUITY: 1 day PAIN SCALE: 1/10 LOCATION: Bilateral chest TECHNIQUE: Volumetric scanning of the chest was performed. Using automated exposure control and adjustment of t he mA and/or kV according to patient size, radiation dose was kept as low as reasonably achievable to obtain optimal diagnostic quality images. DICOM format image data is available electronically for r eview and comparison. Follow-up recommendations for detected pulmonary nodules are based at a minimum on nodule size and pa tient risk factors according to Fleischner Society Guidelines. FINDINGS: Since the previous examination the thickwalled cavitary lesion involving the posterior basilar segmen t of the left lower lobe consistent with a parenchymal abscess has decreased in size. It previously m easured 5.8 x 4.2 cm and now measures 2.5 x 2.0 cm. There is a small air fluid level observed. The le ft pleural effusion is slightly larger. The right tiny pleural effusion is stable. No new abscess obs erved. The heart is normal in size without pericardial effusion. Small anterior mediastinal lymph nod es without adenopathy. Aorta and pulmonary arteries are normal in caliber. CONCLUSION: 1. Decrease in size of a pulmonary abscess now measuring 2.5 x 2.0 cm where previously measured 5.8 x 4.2 cm. 2. Slight increase in size of a left pleural effusion. Tiny right pleural effusion is stable. Moy Maldonado Jr., MD on July 21, 2017 at 16:58 Board Certified Radiologist. This report was verified electronically.
== END 2017-07-21 16:48 | disposition left against medical advice (07) | DRG 871 ==
LOC: NEPD 14:11 → NEDA 16:19 → N04B 17:45
PROVIDERS: ADMIT Internal Medicine; ATTEND Internal Medicine
DX: A41.9 Sepsis, unspecified organism (principal); J18.9 Pneumonia, unspecified organism; F17.200 Nicotine dependence, unspecified, uncomplicated; F12.90 Cannabis use, unspecified, uncomplicated; R79.89 Other specified abnormal findings of blood chemistry
CPT/HCPCS: 71020; 71250; 76604; 80053; 81001; 83036; 83605; 83735; 84100; 84443; 85025; 85610; 85652; 85730; 86038; 86039; 86140; 86430; 87015; 87040; 87070; 87205; 93308; 94640; 94664; J2405; J2543; J3370; J7030; J7040